=== PATIENT | female | born 1950 | race Caucasian/White ===

== ENCOUNTER 2016-08-15 10:45 | Observation (INO) | payer OTHER, MEDICARE ==
--- NOTE | 2016-08-15 11:47 | RAD ---
INDICATION: Shortness of breath and chest pain COMPARISON: Most recent comparison chest x-ray dated July 09, 2015 TECHNIQUE: PA and lateral views of the chest were obtained. FINDINGS: The heart and mediastinum are normal in size and contour. There are faint and diffuse reticulonodular densities overlying the bilateral lungs which are similar in appearance to the July 09, 2015 chest x-ray. There is no focal suspicious pulmonary nodule or lobar consolidation. Degenerative changes of the thoracic spine include loss of intervertebral disc height and marginal osteophyte formation. There is no radiographic evidence of free air beneath the diaphragm. IMPRESSION: STABLE APPEARANCE OF BILATERAL, CENTRAL GREATER THAN PERIPHERAL RETICULONODULAR DENSITY COMPARED TO THE JULY 09, 2015 CHEST X-RAY. THERE IS A LENGTHY DIFFERENTIAL FOR THIS APPEARANCE WITH A MORE COMMON ETIOLOGY BEING PULMONARY EDEMA DUE TO CONGESTIVE HEART FAILURE. SUCH APPEARANCE CAN ALSO BE SEEN WITH PNEUMONITIS OR DRUG TOXICITY.
[2016-08-15 11:53] LABS: Hematocrit 23 % (35-47); Hemoglobin 7.7 g/dl (12.0-16.0); Mean Corpuscular HGB Conc 33 g/dl (31-36); Mean Corpuscular Hemoglobin 26 pg (27-31); Mean Corpuscular Volume 80 fL (80-97); Mean Platelet Volume 7 um3 (7.4-10.4); Red Blood Count 2.92 10^6/ul (4.0-5.4); Red Cell Distribution Width 16 % (10.5-15); White Blood Count 6.3 10^3/ul (3.5-10.8)
[2016-08-15 12:30] LABS: Albumin 3.6 g/dL (3.2-5.2); BUN/Creatinine Ratio 20.4 (8-20); C Reactive Protein 7.45 mg/L (< 5.00); Calcium 9.1 mg/dL (8.6-10.3); EGFR African American 17.5 (>60); EGFR Non-African American 13.6 (>60); Globulin 2.8 g/dL (2-4); Potassium 4.5 mmol/L (3.5-5.0); Total Bilirubin 0.6 mg/dL (0.2-1.0); Total Protein 6.4 g/dL (6.4-8.9)
[2016-08-15 12:34] LABS: Troponin I 0.18 ng/mL (<0.04)
[2016-08-15] MEDS ORDERED: Furosemide IV* 10 MG/ML 2 ML VIAL (20 MG) IV ONE (12:55)
[2016-08-15] MEDS ORDERED: Aspirin Low Dose CHEW TAB* 81 MG PO ONE (13:17)
--- NOTE | 2016-08-15 13:28 | ADMNOTE ---
Subjective Date of Service: 08/15/16 Interval History: ADMISSION HISTORY AND PHYSICAL EXAM: Allergies Allergy/AdvReac Type Severity Reaction Status Date / Time Penicillin V [From Pen-Vee-K] Allergy Severe Rash Verified 07/09/15 08:08 Sulfa Antibiotics Allergy Unknown Verified 07/09/15 08:08 Reaction Details Home Medications Medication Instructions Recorded Confirmed Type Atorvastatin* [Lipitor 20 MG*] 20 mg PO BEDTIME 09/14/12 07/09/15 History Levothyroxine TAB* [Synthroid 100 100 mcg PO QAM 09/14/12 07/09/15 History MCG TAB*] PARoxetine HCL TAB* [Paxil TAB*] 30 mg PO BEDTIME 09/14/12 07/09/15 History glipiZIDE TAB* [Glucotrol TAB*] 10 mg PO BID 09/14/12 07/09/15 History zzInsulin GLARGINE(*) [zzLantus(*)] 15 units SUBCUT BEDTIME 11/01/13 07/09/15 History Aspirin Low Dose CHEW TAB* 81 mg PO DAILY 12/26/13 07/09/15 History [Aspirin Low Dose TAB*] Carvedilol TAB* [Coreg TAB*] 12.5 mg PO BID 04/12/14 07/09/15 History Nitroglycerin [Nitrostat] 0.4 mg SL SEE INSTRUCTIONS PRN 04/12/14 07/09/15 History Pantoprazole TAB (NF) [Protonix 40 mg PO DAILY 04/28/14 07/09/15 History TAB (NF)] Cilostazol TAB* [Pletal TAB*] 100 mg PO BID 03/14/15 07/09/15 History Sitagliptin Phosphate [Januvia] 50 mg PO DAILY 03/14/15 07/09/15 History Furosemide TAB* [Lasix TAB*] 20 mg PO DAILY #30 tab 03/15/15 07/09/15 Rx Isosorbide Mononitrate ER TAB* 30 mg PO DAILY #30 tab.er 03/15/15 07/09/15 Rx [Imdur ER TAB*] hydrALAZINE TAB* [Apresoline TAB*] 25 mg PO TID #90 tab 03/15/15 07/09/15 Rx HPI: Patient has had increased SOB for 2-3 days, orthopnea. No chest pain or cough. She has gained 14 lbs in past month but has no pedal edema. She does not take iron. She took her meds this AM. She took only 15 U Lantus last night. She could not sleep last night due to SOB/orthopnea. Family History: Findings - Mother had CAD. Social History: Findings - Former smoker. Lives with Jerome Hill who is her SDM. No alcohol abuse. Past Medical History: Findings - Treated at [facility] 12/2013 for ACS/ triple vessel CAD. 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 Review of Systems - Measurements Intake and Output: Intake and Output Last 24 Hours 08/13/16 08/14/16 08/15/16 08/16/16 06:59 06:59 06:59 06:59 Weight 172 lb - Review of Systems Constitutional Symptoms: Positive: Weight Gain - 14 lbs in 1 month Dermatology: Positive: Normal HEENT: Positive: Normal Eyes: Positive: Normal Thyroid: Positive: Primary Hypothyroidism Pulmonary: Positive: Shortness of Breath Cardiology: Positive: Orthopnoea Gastroenterology: Positive: Normal Genital - Urinary: Positive: Normal Musculoskeletal: Negative: Joint Pain, Joint Stiffness, Arthritis, Osteoporosis, Low Back Pain , Sciatica, Joint Deformities, Kyphoscoliosis, Other Endocrinology: Positive: Obesity, Diabetes Mellitus Hematologic/Lymphatic: Positive: Anemia, Hx Lymphoma Neurology: Positive: Normal Psychiatry: Positive: Normal Allergic/Immunologic: Negative: Hx Anaphylaxis, Hx Angioedema, Hx Environmental, Hx Seasonal, Athsma, Hx HIV, Immunocompromise, Swollen Glands LymphNodes, Other Objective Vital Signs 08/15/16 08/15/16 08/15/16 10:52 11:05 11:52 Temperature 97.7 F Pulse Rate 79 87 Respiratory 20 16 Rate Blood Pressure 143/52 (mmHg) O2 Sat by Pulse 97 96 Oximetry 08/15/16 08/15/16 12:00 13:00 Temperature Pulse Rate 74 76 Respiratory 16 16 Rate Blood Pressure 126/49 (mmHg) O2 Sat by Pulse 96 97 Oximetry Oxygen Devices in Use Now: None Appearance: Alert, partly up on ED stretcher. In good spirits. Looks comfortable. Ears/Nose/Mouth/Throat: Clear Oropharnyx, Mucous Membranes Moist Neck: No Thyroid Enlargement, Masses, - - JVD at 45 degrees. Respiratory: Symmetrical Chest Expansion and Respiratory Effort, Clear to Percussion, - - bibasilar rales Cardiovascular: NL Sounds; No Murmurs; No JVD, RRR, No Edema, - Abdominal: NL Sounds; No Tenderness; No Distention, No Hepatosplenomegaly, - Extremities: No Edema, No Clubbing, Cyanosis, - Skin: No Rash or Ulcers, No Nodules or Sclerosis, - Neurological: Alert and Oriented x 3, NL Sensation Result Diagrams: 08/15/16 11:44 08/15/16 11:44 Assess/Plan/Problems-Billing Assessment: - Patient Problems (1) Cardiomyopathy Current Visit: Yes Status: Acute Code(s): I42.9 - CARDIOMYOPATHY, UNSPECIFIED SNOMED Code(s): 82949460 Comment: Acute on chronic sytolic CHF. Total 60 mg IV furosemide given in ED. Increase daily furosemide to 40 mg. BMP 08/16. Echo requested. (2) Diabetes Current Visit: No Status: Chronic Priority: Medium Onset Date: 11/17/13 Code(s): E11.9 - TYPE 2 DIABETES MELLITUS WITHOUT COMPLICATIONS SNOMED Code(s) : 60014301 Comment: Lantus 15 U q PM and her usual oral meds. Lispro SS. (3) Chronic kidney disease Current Visit: No Status: Chronic Priority: Medium Onset Date: 11/17/13 Code(s): N18.9 - CHRONIC KIDNEY DISEASE, UNSPECIFIED SNOMED Code(s): 129763720 Comment: Consult for Dr. Beasley; discussed with him. (4) Lymphoma of gastrointestinal tract Current Visit: Yes Status: Acute Code(s): C85.93 - NON-HODGKIN LYMPHOMA, UNSP, INTRA-ABDOMINAL LYMPH NODES SNOMED Code(s): 385509907 Comment: Duodenal lymphoma dx 2011. Dr. Hart to consult and evaulate for timing of fup EGD. (5) Anemia Current Visit: No Status: Acute Priority: High Onset Date: 01/16/14 Code (s): D64.9 - ANEMIA, UNSPECIFIED SNOMED Code(s): 324439515 Comment: IV iron sucrose one dose, check ferritin in AM.
[2016-08-15] MEDS ORDERED: Furosemide IV* 10 MG/ML VIAL (40 MG) IV ONE (13:40)
[2016-08-15] MEDS ORDERED: Nitroglycerin TAB 0.4 MG* 0.4 MG TAB SL PRN (14:07)
[2016-08-15] MEDS ORDERED: Iron Sucrose* 200 MG in NS 0.9% 250 ML* 250 ML IVPB ONE (15:00)
[2016-08-15] MEDS ORDERED: Atorvastatin* 40 MG TAB PO SCH (17:00)
[2016-08-15] MEDS ORDERED: Insulin GLARGINE(*) 1 UNITS UNIT SUBCUT SCH (21:00)
[2016-08-15] MEDS ORDERED: PARoxetine HCL TAB* 10 MG PO SCH (21:00)
[2016-08-15] MEDS: glipiZIDE TAB* 5 MG PO SCH (21:43)
[2016-08-15] MEDS: hydrALAZINE TAB* 25 MG PO SCH (21:44)
[2016-08-15] MEDS: Cilostazol TAB* 100 MG PO SCH (21:44)
[2016-08-15] MEDS: Carvedilol TAB* 25 MG PO SCH (21:44)
[2016-08-15] MEDS: Heparin VIAL(*) 5000 UNITS/ML VIAL (FIVE THOUSAND) SUBCUT SCH (21:45)
--- NOTE | 2016-08-15 22:57 | CONS ---
CC: Dr. Logan Valdez; Dr. Alberto To * CONSULTATION REPORT: DATE OF CONSULT: 08/15/16 REASON FOR CONSULT: Anemia, blood in the stool, history of duodenal lymphoma. NARRATIVE: This is a 66-year-old woman with a complex medical history including coronary artery disease, congestive heart failure, diabetes. She is admitted with worsening shortness of breath and weight gain attributed to congestive heart failure, but upon admission was noted to have anemia. She does have an extensive GI history. She was evaluated in 2012 for GI bleeding with a normal colonoscopy but had an upper endoscopy which showed a duodenal mass with biopsies demonstrating lymphoma. She was treated with Rituxan from 2011 to 2012 and did generally well, but does have residual local disease. She has had persistent anemia that in the past has required iron supplementation, as well as transfusions. This is attributed to bleeding from the residual duodenal lymphoma. Her last upper endoscopy was in 2014, which demonstrated friable mass-like changes in the duodenum, which required electrocautery for coagulation. She was maintained on iron, but discontinued the iron about a year ago. She has been followed closely for anemia and has maintained hemoglobins in the last year which ranged from a low of 8.1 to a high of 10.4. However, on admission today, her hemoglobin is 7.7, which is down from 9.3 in June of 2016. She has not noticed any black stools or rectal bleeding. She denies any abdominal pain, nausea, or vomiting. PAST MEDICAL HISTORY: Again, includes coronary artery disease, status post stent placement in the past complicated by cardiomyopathy and congestive heart failure; insulin-requiring diabetes; chronic renal insufficiency; duodenal lymphoma. MEDICATIONS: Her medicines on admission were: 1. Baby aspirin. 2. Lipitor. 3. Carvedilol. 4. Pletal. 5. Lasix. 6. Isordil. 7. Synthroid. 8. Paxil. 9. Protonix. 10. Januvia. 11. Glucotrol. 12. Hydralazine. 13. Insulin. PHYSICAL EXAM: She is a very pleasant, comfortable-appearing woman in no acute distress. She is mildly pale with temperature of 97.6, blood pressure is 119/49 , heart rate is 78. Skin exam is unremarkable. Lungs reveal some crackles at the bases. Cardiac exam reveals a regular rhythm without murmur. Abdomen is soft without any significant tenderness, distention, and bowel sounds are normoactive. There was no organomegaly. On rectal exam, there is no palpable lesion and has brown trace guaiac-positive stool. LABORATORY DATA: Additional data include an MCV of 80, a BUN of 69, creatinine of 3.39. Troponin of 0.18. BNP of 1322. Normal liver panel. IMPRESSION: A 66-year-old woman presenting with congestive heart failure with a history of duodenal lymphoma and chronic gastrointestinal bleeding. She has last required an upper endoscopy about 2 years ago with cauterization of tissue that was friable. She has maintained a relatively stable hemoglobin, although on admission today, her hemoglobin is less than 8 which is off her baseline. She is trace guaiac positive, but is not having any evidence of high volume gastrointestinal bleeding. It is likely that friable tissue from the residual lymphoma is leading to her anemia. This may even be provoking cardiac dysfunction. She is getting IV iron which certainly makes sense. I discussed with her pursuing an upper endoscopy during this admission to recheck the lymphoma and see if it is still friable, whether cauterization may help with improving her anemia as it seems to have helped in the past. She is agreeable and we will make arrangements for that to take place tomorrow. [id number]/[facility] #: [id number] MTDD
[2016-08-16] MEDS: Heparin VIAL(*) 5000 UNITS/ML VIAL (FIVE THOUSAND) SUBCUT SCH ×2 (05:19→13:41)
[2016-08-16 05:26] LABS: Calcium 9.2 mg/dL (8.6-10.3); EGFR African American 18.4 (>60); EGFR Non-African American 14.3 (>60); Potassium 3.9 mmol/L (3.5-5.0)
[2016-08-16 05:45] LABS: Ferritin 40.4 ng/mL (11-307)
[2016-08-16] MEDS ORDERED: Levothyroxine TAB* 100 MCG TAB PO SCH (06:00)
[2016-08-16] MEDS ORDERED: Dextrose 50% Syringe 50 ML* 25 GM/50 ML SYRINGE IV PUSH PRN (07:40)
--- NOTE | 2016-08-16 07:59 | PN ---
Subjective Date of Service: 08/16/16 Interval History: Patient reports significant diuresis. Slept better, flat in bed. Less SOB. No new c/o. Requests discharge today if possible. Family History: Findings - Mother had CAD. Social History: Findings - Former smoker. Lives with Jerome Hill who is her SDM. No alcohol abuse. Past Medical History: Findings - Treated at [facility] 12/2013 for ACS/ triple vessel CAD. 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 Objective Active Medications: Aspirin (Aspirin Low Dose Tab*) 81 mg PO DAILY [facility] Atorvastatin Calcium (Lipitor*) 40 mg PO 1700 [facility] Last Admin: 08/15/16 16:23 Dose: 40 mg Carvedilol (Coreg Tab*) 12.5 mg PO BID [facility] Last Admin: 08/15/16 21:44 Dose: 12.5 mg Cilostazol (Pletal Tab*) 100 mg PO BID [facility] Last Admin: 08/15/16 21:44 Dose: 100 mg Dextrose (D50w Syringe 50 Ml*) 12.5 gm IV PUSH .FOR FS < 60 - SS PRN PRN Reason: FS < 60 Furosemide (Lasix Tab*) 40 mg PO DAILY [facility] Glipizide (Glucotrol Tab*) 10 mg PO BID [facility] Last Admin: 08/15/16 21:43 Dose: 10 mg Heparin Sodium (Porcine) (Heparin Vial(*)) 5,000 units SUBCUT Q8HR [facility] Last Admin: 08/16/16 05:19 Dose: 5,000 units Hydralazine HCl (Apresoline Tab*) 25 mg PO TID [facility] Last Admin: 08/15/16 21:44 Dose: 25 mg Insulin Glargine (Lantus(*)) 15 units SUBCUT BEDTIME [facility] Last Admin: 08/15/16 21:53 Dose: 15 unit Insulin Human Lispro (Humalog*) 0 units SUBCUT ACHS [facility] PRN Reason: Protocol Isosorbide Mononitrate (Imdur Er Tab*) 30 mg PO DAILY [facility] Levothyroxine Sodium (Synthroid Tab*) 100 mcg PO 0600 [facility] Last Admin: 08/16/16 05:18 Dose: 100 mcg Metolazone (Zaroxolyn Tab*) 5 mg PO DAILY@0830 [facility] Nitroglycerin (Nitroglycerin Tab 0.4 Mg*) 0.4 mg SL Q5M PRN PRN Reason: CHEST PAIN; MDD= 3 TABS Omeprazole (Prilosec Cap*) 20 mg PO DAILY [facility] Paroxetine HCl (Paxil Tab*) 30 mg PO BEDTIME [facility] Last Admin: 08/15/16 21:43 Dose: 30 mg Sitagliptin Phosphate (Januvia (Nf)) 50 mg PO DAILY [facility] PRN Reason: Protocol Vital Signs 08/15/16 08/15/16 08/15/16 13:31 16:02 19:35 Temperature 97.8 F 97.6 F 97.9 F Pulse Rate 79 78 73 Respiratory 20 20 18 Rate Blood Pressure 112/46 119/49 114/47 (mmHg) O2 Sat by Pulse 94 94 93 Oximetry 08/15/16 08/15/16 08/15/16 20:00 21:45 23:48 Temperature 97.4 F Pulse Rate 70 75 Respiratory 18 18 20 Rate Blood Pressure 118/48 105/45 (mmHg) O2 Sat by Pulse 97 95 Oximetry 08/16/16 04:33 Temperature 97.9 F Pulse Rate 79 Respiratory 20 Rate Blood Pressure 114/44 (mmHg) O2 Sat by Pulse 96 Oximetry Oxygen Devices in Use Now: None Appearance: Alert, standing in her room. In good spirits. Looks comfortable. Eyes: No Scleral Icterus Ears/Nose/Mouth/Throat: Clear Oropharnyx, Mucous Membranes Moist Neck: NL Appearance and Movements; NL JVP, No Thyroid Enlargement, Masses Respiratory: Symmetrical Chest Expansion and Respiratory Effort, Clear to Auscultation, Clear to Percussion Cardiovascular: NL Sounds; No Murmurs; No JVD, RRR, No Edema, - Extremities: No Edema, No Clubbing, Cyanosis, - Skin: No Rash or Ulcers, No Nodules or Sclerosis, - Neurological: Alert and Oriented x 3, NL Sensation Result Diagrams: 08/16/16 12:15 08/16/16 04:35 Assess/Plan/Problems-Billing Assessment: - Patient Problems (1) Cardiomyopathy Current Visit: Yes Status: Acute Code(s): I42.9 - CARDIOMYOPATHY, UNSPECIFIED SNOMED Code(s): 43786085 Comment: Acute on chronic sytolic CHF. Add metolazone. As pt reported large diuresis, will rx MoWeFr. BMP 08/21 as outpt. Echo showed LV 25-30%, sl worse MR also c/w prior study. I discussed daily weights and managing her diuretic dose, especially metolazone. (2) Diabetes Current Visit: No Status: Chronic Priority: Medium Onset Date: 11/17/13 Code(s): E11.9 - TYPE 2 DIABETES MELLITUS WITHOUT COMPLICATIONS SNOMED Code(s) : 71018783 Comment: Lantus 15 U q PM and her usual oral meds at home. (3) Chronic kidney disease Current Visit: No Status: Chronic Priority: Medium Onset Date: 11/17/13 Code(s): N18.9 - CHRONIC KIDNEY DISEASE, UNSPECIFIED SNOMED Code(s): 847342013 Comment: Consult for Dr. Beasley; discussed with him. She will call for outpt appt. (4) Lymphoma of gastrointestinal tract Current Visit: Yes Status: Acute Code(s): C85.93 - NON-HODGKIN LYMPHOMA, UNSP, INTRA-ABDOMINAL LYMPH NODES SNOMED Code(s): 636758229 Comment: Duodenal lymphoma dx 2011. Dr. Young verbal report EGD showed duodenal ulcer. 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 She recalls having bleeding on clopidogrel in the past. (5) Anemia Current Visit: No Status: Acute Priority: High Onset Date: 01/16/14 Code (s): D64.9 - ANEMIA, UNSPECIFIED SNOMED Code(s): 874190378 Comment: IV iron sucrose one dose given. Ferritin 40, goal is 100. Recommended FeSO4 325 mg daily. CBC as outpt 08/21. Status and Disposition: Discharge now. Fup Ramos Palafox, Hector, her store director, her PCP.
[2016-08-16 08:04] LABS: Troponin I 0.28 ng/mL (<0.04)
[2016-08-16] MEDS ORDERED: Metolazone TAB* 5 MG PO SCH (08:30)
[2016-08-16] MEDS: hydrALAZINE TAB* 25 MG PO SCH ×2 (08:45→13:41)
[2016-08-16] MEDS: Cilostazol TAB* 100 MG PO SCH (08:45)
[2016-08-16] MEDS: glipiZIDE TAB* 5 MG PO SCH (08:46)
[2016-08-16] MEDS: Carvedilol TAB* 25 MG PO SCH (08:46)
[2016-08-16] MEDS ORDERED: Perflutren Lipid Microsphere* 3 ML VIAL ONE (08:49)
[2016-08-16] MEDS ORDERED: glipiZIDE TAB* 5 MG ONE (08:51)
[2016-08-16] MEDS ORDERED: Isosorbide Mononitrate ER TAB* 30 MG PO SCH (09:00)
[2016-08-16] MEDS ORDERED: Aspirin Low Dose CHEW TAB* 81 MG PO SCH (09:00)
[2016-08-16] MEDS ORDERED: CMC:SitaGLIPtin (NF) 25 MG TAB PO SCH (09:00)
[2016-08-16] MEDS ORDERED: Omeprazole CAP* 20 MG PO SCH ×2 (09:00→21:00)
[2016-08-16] MEDS ORDERED: Furosemide TAB* 40 MG PO SCH (09:00)
--- NOTE | 2016-08-16 11:21 | ECHO ---
Patient: DEVORA RIVERS [facility] Rec#: [id number] : 1950 Date: 08/16/2016 Age: 66y Height: 162.56 cm / 64.0 in Weight: 79.38 kg / 175.0 lbs Sex: F BSA: 1.85 Room#: 446 Admit Date#: 08/15/2016 Type: Inpatient Referring: Jhoan Boyd MD Reading: Abimael Rebolledo MD Correspondent: Devora Sheth RD,RDMS CC: Logan Valdez MD Transthoracic Echocardiogram Indication: CHF BP: 114/44 HR: 76 Rhythm: NSR Findings History: CAD, PCI, HTN, HLD, DM, CKD Technical Comments: The study quality is fair. Completed 1020 Left Ventricle: The left ventricular chamber size is mildly dilated. Mild concentric left ventricular hypertrophy is observed. There are multiple regional wall motion abnormalities. The estimated ejection fraction is 25-30%. The left ventricular diastolic filling pattern is consistent with pseudonormalization. Left Atrium: The left atrium is moderately dilated. Right Ventricle: The right ventricular chamber size and systolic function are within normal limits. Right Atrium: The right atrial cavity size is normal. Aortic Valve: The aortic valve is trileaflet. Systolic excursion of the aortic valve is normal. There is no evidence of aortic regurgitation. There is no evidence of aortic stenosis. Mitral Valve: There is mitral annular calcification. The mitral valve leaflets are mildly thickened. There is moderate mitral regurgitation. There is borderline mitral stenosis. Tricuspid Valve: The tricuspid valve leaflets are normal. There is trace tricuspid regurgitation. Unable to estimate the right ventricular systolic pressure. Pulmonic Valve: The pulmonic valve structure is not well visualized. Pericardium: There is no significant pericardial effusion. Aorta: The aortic root appears normal. There is no dilatation of the aortic arch. Pulmonary Artery: The main pulmonary artery is not well visualized. Venous: The inferior vena cava is dilated. There is a greater than 50% respiratory change in the inferior vena cava dimension. Contrast: Definity was used to optimize study. A total of 4 ml was used Conclusions There are multiple regional wall motion abnormalities. The estimated ejection fraction is 25-30%. The left ventricular diastolic filling pattern is consistent with pseudonormalization. The right ventricular chamber size and systolic function are within normal limits. There is no evidence of aortic stenosis. There is moderate mitral regurgitation. There is trace tricuspid regurgitation. Unable to estimate the right ventricular systolic pressure. There is no significant pericardial effusion. Compared to study of 03/14/15, the LV function is slightly lower, The degree of MR is slightly worse Measurements Name Value Normal Range RVIDd (AP) 2D 1.9 cm (0.9 - 2.6) RVDdMajor (2D) 2.6 cm (2.2 - 4.4) RAd ISD 4CH 4.2 cm (3.4 - 4.9) RA (A4C)W 4.1 cm (2.9 - 4.6) IVSd (2D) 1.1 cm (0.6 - 1) LVPWd (2D) 1.2 cm (0.6 - 1) LVIDd (2D) 5.9 cm (3.6 - 5.4) LVIDs (2D) 4.7 cm - LV FS (2D) 20 % (25 - 45) Aortic Annulus 2 cm (1.4 - 2.6) Ao root diameter (2D) 2.9 cm (2.1 - 3.5) Ascending Ao 2.6 cm (2.1 - 3.4) Aortic arch 2.7 cm (1.8 - 3.4) LA dimension (AP) 2D 4.8 cm (2.3 - 3.8) LAd ISD 4CH 6.1 cm (2.9 - 5.3) LA ISD 4CH W 4.3 cm (2.5 - 4.5) Name Value Normal Range LA ESV SP 4CH (A/L) 73.81 ml - LA ESV SP 2CH (A/L) 86.33 ml - LA ESV BP (A/L) 85.88 ml - LA ESV BP (A/L) index 46.4 ml/m2 - LA ESV SP 4CH (MOD) 70.68 ml - LA ESV SP 2CH (MOD) 83.61 ml - Name Value Normal Range MV E-wave Vmax 1.3 m/sec - MV deceleration time 176 msec - MV A-wave Vmax 1 m/sec - MV E:A ratio 1.3 ratio - P. vein S-wave Vmax 0.5 m/sec - P. vein D-wave Vmax 0.5 m/sec - P. vein S:D Vmax ratio 1.1 ratio - P. vein A-wave duration 133.1 msec - LV lateral e' Vmax 0.05 m/sec - LV E:e' lateral ratio 26 ratio - Name Value Normal Range AV Vmax 1.5 m/sec - AV VTI 36.7 cm - AV peak gradient 9 mmHg - AV mean gradient 5 mmHg - LVOT Vmax 0.9 m/sec - LVOT VTI 21.7 cm - LVOT peak gradient 3.2 mmHg - LVOT mean gradient 2 mmHg - HOANG Vmax 0.8 m/sec - Name Value Normal Range MV Vmax 1.5 m/sec - MV VTI 37.3 cm - MV peak gradient 9 mmHg - MV mean gradient 3.1 mmHg - MV PHT 65 msec - MR Vmax 4.5 m/sec - MR VTI 157.3 cm - MR flow (PISA) 51.3 ml/sec - MR ERO 1.3 cm2 - MVA (PHT) 3.4 cm2 - Name Value Normal Range RAP 8 mmHg - IVC diameter 2.5 cm -
[2016-08-16] MEDS: Insulin LISPRO* 1 UNITS UNIT SUBCUT SCH ×2 (11:31→16:20)
[2016-08-16 12:23] LABS: Hematocrit 23 % (35-47); Hemoglobin 7.5 g/dl (12.0-16.0); Mean Corpuscular HGB Conc 33 g/dl (31-36); Mean Corpuscular Hemoglobin 26 pg (27-31); Mean Corpuscular Volume 80 fL (80-97); Mean Platelet Volume 7 um3 (7.4-10.4); Red Blood Count 2.83 10^6/ul (4.0-5.4); Red Cell Distribution Width 16 % (10.5-15); White Blood Count 4.3 10^3/ul (3.5-10.8)
[2016-08-16] MEDS ORDERED: fentaNYL* 50 MCG/ML 2 ML VIAL (100 MCG VIAL) ONE (13:48)
[2016-08-16] MEDS ORDERED: Midazolam* 1 MG/ML 10 ML VIAL (10 MG) ONE ×2 (13:48→13:57)
[2016-08-16 15:50] VITALS: BP 108/44
--- NOTE | 2016-08-16 16:54 | PN ---
Progress Note - Progress Note Note: Time spent on discharge 50 minutes.
--- NOTE | 2016-08-17 06:41 | PRO ---
CC: Dr. Valdez * DATE OF PROCEDURE: 08/16/16 - ROOM #446 DATE OF : 52 PROCEDURE: EGD. INDICATION: Anemia. REFERRING PHYSICIAN: Dr. Valdez. MEDICATIONS GIVEN: 25 mcg IV fentanyl and 4 mg IV Versed. DESCRIPTION OF PROCEDURE: After the EGD procedure including the risks, benefits , and alternatives not limited to perforation, surgery, and/or were explained to Mrs. Santana; written consent was then obtained; IV medication was given; and a biteblock was placed between the teeth. Olympus gastroscope was then inserted into the patient's mouth, advanced down the esophagus, into the stomach, into the distal duodenum. In the esophagus at the GE junction, the Z- line was intact. No erosive esophagitis, stricture, or ring was seen. Scope was advanced through a widely patent GE junction into the body of the stomach. Retroflexed view was unremarkable. Forward also was unremarkable except for a small ulcer in the prepyloric region, it was nonbleeding. Biopsy was obtained. The scope was advanced through a widely patent pylorus into the duodenal bulb , into the distal duodenum. No nodularity was seen, but there was what appeared to be scarring in the duodenum. Biopsies were obtained. The scope was then withdrawn from the patient. She tolerated the procedure well and was returned to the recovery room in stable condition. IMPRESSION: 1. Complete upper endoscopy into the distal duodenum with biopsies. 2. Duodenal biopsies. 3. Gastric ulcer, status post biopsy. 4. I will follow up on all the biopsies and report back to the patient at that time. She should be started on a PPI. The ulcers are likely secondary to her ASPIRIN use. [id number]/[facility] #: [id number] [facility]
--- NOTE | 2016-08-18 13:50 | ED ---
I, Rigo,Jesu, scribed for Roddy Ayala MD on 08/15/16 at 1157 . Shortness of Breath - HPI Summary HPI Summary: This 66 y/o female presents to ED for acute on chronic SOB since 2 days ago. Positive mild CP. SOB is worse with lying down and exertion. PMHx is significant for DM, HTN, CHF, PE, and duodenal CA. She does report recent weight gain of 13-14 pound since 2 weeks ago, even though pt is currently on unspecified "water pills". - History of Current Complaint Chief Complaint: EDShortnessOfBreath Time Seen by Provider: 08/15/16 11:04 Hx Obtained From: Patient, Medical Records Onset/Duration: Gradual Onset Timing: Constant Dyspnea At: Rest Aggrevating Factors: Recumbent Position Alleviating Factors: Upright Position Associated Signs & Symptoms: Chest Pain Unrelated to Cough - Allergy/Home Medications Allergies/Adverse Reactions: Allergies Allergy/AdvReac Type Severity Reaction Status Date / Time Penicillin V [From Pen-Vee-K] Allergy Severe Rash Verified 07/09/15 08:08 Sulfa Antibiotics Allergy Unknown Verified 07/09/15 08:08 Reaction Details PMH/Surg Hx/FS Hx/Imm Hx Endocrine/Hematology History: Reports: Hx Diabetes, Hx Thyroid Disease Cardiovascular History: Reports: Hx Angina, Hx Congestive Heart Failure, Hx Coronary Artery Disease, Hx Hypertension, Other Cardiovascular Problems/ Disorders - Cardiac cath 2011 with 2 stents Denies: Hx Peripheral Vascular Disease Respiratory History: Reports: Hx Pleural Effusion Denies: Other Respiratory Problems/Disorders Comment Only: Hx Asthma - ALSO HX OF STOMACH CANCER 2011 GI History: Denies: Other GI Disorders - CA, meghann, "oozing bleed" History: Reports: Hx Renal Disease - 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 melanoma- 2000 lymph nodes removed from right groin. -2003 spot removed from top of right foot. - Surgical History Surgery Procedure, Year, and Place: ,cholecystectomy, hysterectomy, melanoma- 2000 lymph nodes reoved right groin, 2004 spot removed from top of right foot. - Immunization History Date of Tetanus Vaccine: Unk Date of Influenza Vaccine: Fall 2013 Infectious Disease History: Denies: Traveled Outside the [place] in Last 30 Days - Family History Known Family History: Positive: Cardiac Disease - Positive to mother - Social History Alcohol Use: None Substance Use Type: Reports: None Hx Tobacco Use: Yes Smoking Status (MU): Heavy Every Day Tobacco Smoker Length of Time of Smoking/Using Tobacco: About 40yrs Have You Smoked in the Last Year: Yes Review of Systems Positive: Other - Recent weight gain. Negative: Fever Positive: Chest Pain - mild Positive: Shortness Of Breath All Other Systems Reviewed And Are Negative: Yes Physical Exam - Summary Physical Exam Summary: VITAL SIGNS: Reviewed. GENERAL: Patient is a well-developed and nourished FEMALE who is lying comfortable in the stretcher. Patient is not in any acute respiratory distress. HEAD AND FACE: No signs of trauma. No ecchymosis, hematomas or skull depressions. No sinus tenderness. EYES: PERRLA, EOMI x 2, No injected conjunctiva, no nystagmus. EARS: Hearing grossly intact. Ear canals and tympanic membranes are within normal limits. MOUTH: Oropharynx within normal limits. NECK: Supple, trachea is midline, no adenopathy, no JVD, no carotid bruit, no c- spine tenderness, neck with full ROM. CHEST: Symmetric, no tenderness at palpation LUNGS: Rancorous breath sound, otherwise clear to auscultation bilaterally. No wheezing or crackles. CVS: Regular rate and rhythm, S1 and S2 present, no murmurs or gallops appreciated. ABDOMEN: Soft, non-tender. No signs of distention. No rebound no guarding, and no masses palpated. Bowel sounds are normal. EXTREMITIES: FROM in all major joints, no edema, no cyanosis or clubbing. NEURO: Alert and oriented x 3. No acute neurological deficits. Speech is normal and follows commands. SKIN: Dry and warm Triage Information Reviewed: Yes Vital Signs On Initial Exam: Initial Vitals Temp Pulse Resp BP Pulse Ox 97.7 F 79 20 143/52 97 08/15/16 10:52 08/15/16 10:52 08/15/16 10:52 08/15/16 10:52 08/15/16 10:52 Vital Signs Reviewed: Yes Diagnostics - Vital Signs Vital Signs Temp Pulse Resp BP Pulse Ox 08/15/16 10:52 97.7 F 79 20 143/52 97 - Laboratory Lab Results: Lab Results 08/15/16 08/15/16 08/15/16 Range/Units 11:44 11:44 11:44 WBC 6.3 (3.5-10.8) 10^3/ul RBC 2.92 L (4.0-5.4) 10^6/ul Hgb 7.7 L (12.0-16.0) g/dl Hct 23 L (35-47) % MCV 80 (80-97) fL MCH 26 L (27-31) pg MCHC 33 (31-36) g/dl RDW 16 H (10.5-15) % Plt Count 288 (150-450) 10^3/ul MPV 7 L (7.4-10.4) um3 Neut % (Auto) 80.5 (38-83) % Lymph % (Auto) 7.8 L (25-47) % Falls % (Auto) 7.4 (1-9) % Eos % (Auto) 3.5 (0-6) % Baso % (Auto) 0.8 (0-2) % Absolute Neuts (auto) 5.0 (1.5-7.7) 10^3/ul Absolute Lymphs (auto) 0.5 L (1.0-4.8) 10^3/ul Absolute Monos (auto) 0.5 (0-0.8) 10^3/ul Absolute Eos (auto) 0.2 (0-0.6) 10^3/ul Absolute Basos (auto) 0 (0-0.2) 10^3/ul Absolute Nucleated RBC 0 10^3/ul Nucleated RBC % 0 Sodium 135 (133-145) mmol/L Potassium 4.5 (3.5-5.0) mmol/L Chloride 101 (101-111) mmol/L Carbon Dioxide 28 (22-32) mmol/L Anion Gap 6 (2-11) mmol/L BUN 69 H (6-24) mg/dL Creatinine 3.39 H (0.51-0.95) mg/dL Est GFR ( Amer) 17.5 (>60) Est GFR (Non-Af Amer) 13.6 (>60) BUN/Creatinine Ratio 20.4 H (8-20) Glucose 176 H (70-100) mg/dL Lactic Acid 0.8 (0.5-2.0) mmol/L Calcium 9.1 (8.6-10.3) mg/dL Total Bilirubin 0.60 (0.2-1.0) mg/dL AST 14 (13-39) U/L ALT 12 (7-52) U/L Alkaline Phosphatase 90 (34-104) U/L Total Creatine Kinase 44 (10-223) U/L CK-MB (CK-2) 1.8 (0.6-6.3) ng/mL Troponin I 0.18 H* (<0.04) ng/mL C-Reactive Protein 7.45 H (< 5.00) mg/L B-Natriuretic Peptide ( - 100) pg/mL Total Protein 6.4 (6.4-8.9) g/dL Albumin 3.6 (3.2-5.2) g/dL Globulin 2.8 (2-4) g/dL Albumin/Globulin Ratio 1.3 (1-3) Hepatitis B Antibody (Nonreactive) Hep Bs Antigen (Nonreactive) Hep Bs Antibody, Quant (<12) mIU/mL Hepatitis C Antibody (Nonreactive) 08/15/16 08/15/16 Range/Units 11:44 11:44 WBC (3.5-10.8) 10^3/ul RBC (4.0-5.4) 10^6/ul Hgb (12.0-16.0) g/dl Hct (35-47) % MCV (80-97) fL MCH (27-31) pg MCHC (31-36) g/dl RDW (10.5-15) % Plt Count (150-450) 10^3/ul MPV (7.4-10.4) um3 Neut % (Auto) (38-83) % Lymph % (Auto) (25-47) % Falls % (Auto) (1-9) % Eos % (Auto) (0-6) % Baso % (Auto) (0-2) % Absolute Neuts (auto) (1.5-7.7) 10^3/ul Absolute Lymphs (auto) (1.0-4.8) 10^3/ul Absolute Monos (auto) (0-0.8) 10^3/ul Absolute Eos (auto) (0-0.6) 10^3/ul Absolute Basos (auto) (0-0.2) 10^3/ul Absolute Nucleated RBC 10^3/ul Nucleated RBC % Sodium (133-145) mmol/L Potassium (3.5-5.0) mmol/L Chloride (101-111) mmol/L Carbon Dioxide (22-32) mmol/L Anion Gap (2-11) mmol/L BUN (6-24) mg/dL Creatinine (0.51-0.95) mg/dL Est GFR ( Amer) (>60) Est GFR (Non-Af Amer) (>60) BUN/Creatinine Ratio (8-20) Glucose (70-100) mg/dL Lactic Acid (0.5-2.0) mmol/L Calcium (8.6-10.3) mg/dL Total Bilirubin (0.2-1.0) mg/dL AST (13-39) U/L ALT (7-52) U/L Alkaline Phosphatase (34-104) U/L Total Creatine Kinase (10-223) U/L CK-MB (CK-2) (0.6-6.3) ng/mL Troponin I (<0.04) ng/mL C-Reactive Protein (< 5.00) mg/L B-Natriuretic Peptide 1322 H ( - 100) pg/mL Total Protein (6.4-8.9) g/dL Albumin (3.2-5.2) g/dL Globulin (2-4) g/dL Albumin/Globulin Ratio (1-3) Hepatitis B Antibody Nonreactive (Nonreactive) Hep Bs Antigen Nonreactive (Nonreactive) Hep Bs Antibody, Quant < 3.10 (<12) mIU/mL Hepatitis C Antibody Nonreactive (Nonreactive) Result Diagrams: 08/16/16 12:15 08/16/16 04:35 Lab Statement: Any lab studies that have been ordered have been reviewed, and results considered in the medical decision making process. - Radiology CXR Xray Interpretation: Positive (See Comments) - STABLE APPEARANCE OF BILATERAL, CENTRAL GREATER THAN PERIPHERAL RETICULONODULAR DENSITY COMPARED TO THE JULY 09, 2015 CHEST X-RAY. THERE IS A LENGTHY DIFFERENTIAL FOR THIS APPEARANCE WITH A MORE COMMON ETIOLOGY BEING PULMONARY EDEMA DUE TO CONGESTIVE HEART FAILURE. SUCH APPEARANCE CAN ALSO BE SEEN WITH PNEUMONITIS OR DRUG TOXICITY. Radiology Interpretation Completed By: Radiologist - EKG 1059 Cardiac Rate: NL - 85 bpm EKG Rhythm: Sinus Rhythm EKG Comparison: No Significant Change - since 07/09/2015 Course/Dx - Course Assessment/Plan: This 66 y/o female presents to ED for acute on chronic SOB since 2 days ago. Positive mild CP. SOB is worse with lying down and exertion. PMHx is significant for DM, HTN, CHF, PE, and duodenal CA. She does report recent weight gain of 13-14 pound since 2 weeks ago, even though pt is currently on unspecified "water pills". Bloodwork indicates chronic anemia, acute on chronic renal failure, trop of 0.18, BNP of 1322. CXR indicates CHF. ED course pt was placed on adult care provider and IV access was obtained. Pt was given Lasix for CHF and ASA for increased trop to r/o ACS. Physical exam and clinical findings were discussed with Dr. Boyd. He accepted for admission. Patient is hemodynamically stable and A+O X 3. - Diagnoses Differential Diagnosis/HQI/PQRI: Positive: CHF, COPD Exacerbation, Pulmonary Edema Provider Diagnoses: CHF (congestive heart failure), Increased troponin r/o ACS - Physician Notifications Discussed Care of Patient With: Jhoan Boyd Time Discussed With Above Provider: 13:03 Discharge - Discharge Plan Condition: Stable Disposition: ADMITTED TO [facility] documentation as recorded by the Rigo friedman Soohyun accurately reflects the service I personally performed and the decisions made by , Roddy Ayala MD.
[2016-08-18 20:04] LABS: M tuberculosis by Quantiferon Negative (Negative); TB Ag minus Nil Result 0 IU/mL
== END 2016-08-16 17:05 | disposition home or self-care (01) ==
LOC: ED 10:45 → MEDTELE 13:08 → INTOOBSV 13:08
PROVIDERS: ADMIT Internal Medicine; ATTEND Internal Medicine
PROC: 0DB98ZX Excision of Duodenum, Via Natural or Artificial Opening Endoscopic, Diagnostic (ICD-10-PCS; principal; 2016-08-15)
PROC: 0DB68ZX Excision of Stomach, Via Natural or Artificial Opening Endoscopic, Diagnostic (ICD-10-PCS; 2016-08-15)
DX: D64.9 Anemia, unspecified (principal); K92.2 Gastrointestinal hemorrhage, unspecified; I42.9 Cardiomyopathy, unspecified; I50.9 Heart failure, unspecified; E11.9 Type 2 diabetes mellitus without complications; N18.9 Chronic kidney disease, unspecified; Z85.72 Personal history of non-Hodgkin lymphomas; R06.02 Shortness of breath; Z88.0 Allergy status to penicillin; Z88.2 Allergy status to sulfonamides; I25.10 Atherosclerotic heart disease of native coronary artery without angina pectoris; Z79.4 Long term (current) use of insulin
CPT/HCPCS: 36415; 71020; 80048; 80053; 82550; 82553; 82728; 83605; 83880; 84484; 85025; 86140; 86480; 86706; 86803; 87340; 88365; 93005; 93306; 96372; 96374; 96375; 99284; A9270-GY; C8929; G0378; J1644; J1756; J1940; J2250; J3010

== ENCOUNTER 2016-09-06 01:46 | Inpatient (IN) | payer MEDICARE, OTHER ==
[2016-09-06] MEDS ORDERED: Furosemide IV* 10 MG/ML VIAL (40 MG) IV ONE ×3 (01:57→09:30)
--- NOTE | 2016-09-06 02:08 | ED ---
Tyson Bernard Thomas, scribed for Bjorn Martinez MD on 09/06/16 at 0200 . Shortness of Breath - HPI Summary HPI Summary: The pt is a 66 y/o F with a Hx of CHF BIBA c/o SOB that began at 00:00 today. When she went to sleep last night, she did not have SOB, but when she woke up in the middle of the night she had severe SOB. She denies fever. She is on 6L of Oxygen at home. She denies any Sx of respiratory complaints yesterday before she fell asleep. She was a pt at [facility] two weeks ago, when she was admitted. PMHx : DM, angina, CHF, PE, CAD, stage 4 kidney disease, and HTN. PSHx: cardiac cath in 2011 with two stents. FHx: tobacco use. - History of Current Complaint Chief Complaint: EDShortnessOfBreath Time Seen by Provider: 09/06/16 01:53 Hx Obtained From: Patient Onset/Duration: Sudden Onset - since she woke up at midnight, Still Present Timing: Constant - Allergy/Home Medications Allergies/Adverse Reactions: Allergies Allergy/AdvReac Type Severity Reaction Status Date / Time Penicillin V [From Pen-Vee-K] Allergy Severe Rash Verified 07/09/15 08:08 Sulfa Antibiotics Allergy Unknown Verified 07/09/15 08:08 Reaction Details PMH/Surg Hx/FS Hx/Imm Hx Previously Healthy: No Endocrine/Hematology History: Reports: Hx Diabetes, Hx Thyroid Disease Cardiovascular History: Reports: Hx Angina, Hx Congestive Heart Failure, Hx Coronary Artery Disease, Hx Hypertension, Other Cardiovascular Problems/ Disorders - Cardiac cath 2011 with 2 stents Denies: Hx Peripheral Vascular Disease Respiratory History: Reports: Hx Pleural Effusion Denies: Other Respiratory Problems/Disorders Comment Only: Hx Asthma - ALSO HX OF STOMACH CANCER 2011 GI History: Reports: Hx Gastrointestinal Bleed Denies: Other GI Disorders - CA, meghann, "oozing bleed" History: Reports: Hx Renal Disease - 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 melanoma- 2000 lymph nodes removed from right groin. -2003 spot removed from top of right foot. - Surgical History Surgery Procedure, Year, and Place: ,cholecystectomy, hysterectomy, melanoma- 2000 lymph nodes reoved right groin, 2003 spot removed from top of right foot. - Immunization History Date of Tetanus Vaccine: Unk Date of Influenza Vaccine: Fall 2013 - Family History Known Family History: Positive: None, Cardiac Disease - Positive to mother - Social History Alcohol Use: None Substance Use Type: Reports: None Hx Tobacco Use: Yes Smoking Status (MU): Heavy Every Day Tobacco Smoker Length of Time of Smoking/Using Tobacco: About 40yrs Have You Smoked in the Last Year: Yes Review of Systems Constitutional: Negative Negative: Fever Eyes: Negative ENT: Negative Cardiovascular: Negative Positive: Shortness Of Breath - onset 00:00 when she woke up Gastrointestinal: Negative Genitourinary: Negative Musculoskeletal: Negative Skin: Negative Neurological: Negative Psychological: Normal All Other Systems Reviewed And Are Negative: Yes Physical Exam Triage Information Reviewed: Yes Vital Signs On Initial Exam: Initial Vitals Temp Pulse Resp BP Pulse Ox 96.4 F 119 22 134/119 95 09/06/16 01:55 09/06/16 01:55 09/06/16 01:55 09/06/16 01:55 09/06/16 01:55 Vital Signs Reviewed: Yes Appearance: Positive: No Pain Distress, Ill-Appearing, Thin Skin: Positive: Warm Head/Face: Positive: Normal Head/Face Inspection Eyes: Positive: CHAMP ENT: Positive: Hearing grossly normal Neck: Positive: Supple Respiratory/Lung Sounds: Positive: Decreased Breath Sounds, Unable to speak in full sentences, Fatigue Cardiovascular: Positive: Tachycardia Abdomen Description: Positive: Nontender, Soft Bowel Sounds: Positive: Present Musculoskeletal: Positive: Strength/ROM Intact Psychiatric: Positive: Anxious Diagnostics - Vital Signs Vital Signs Temp Pulse Resp BP Pulse Ox 09/06/16 01:55 96.4 F 119 22 134/119 95 - Laboratory Result Diagrams: 09/06/16 02:11 09/06/16 02:11 Lab Statement: Any lab studies that have been ordered have been reviewed, and results considered in the medical decision making process. Re-Evaluation - Re-Evaluation Second Eval Re-Evaluation Time: 02:54 Change: Improved - mildly improved, d/w hospitaliust, will admit Course/Dx - Diagnoses Provider Diagnoses: CHF (congestive heart failure) - Physician Notifications Discussed Care of Patient With: Aaliyah Lobato Time Discussed With Above Provider: 02:54 Instructed by Provider To: Other - Discussed patient. - Critical Care Time Critical Care Time: 30-74 min Discharge - Discharge Plan Condition: Fair Disposition: ADMITTED TO [facility] documentation as recorded by the Tyson friedman Thomas accurately reflects the service I personally performed and the decisions made by me, Bjorn Martinez MD.
[2016-09-06 02:26] LABS: Hematocrit 33 % (35-47); Mean Corpuscular HGB Conc 33 g/dl (31-36); Mean Corpuscular Hemoglobin 29 pg (27-31); Mean Corpuscular Volume 88 fL (80-97); Mean Platelet Volume 9 um3 (7.4-10.4); Red Blood Count 3.81 10^6/ul (4.0-5.4); Red Cell Distribution Width 18 % (10.5-15)
[2016-09-06 02:39] LABS: BUN/Creatinine Ratio 25.8 (8-20); Calcium 9.3 mg/dL (8.6-10.3); EGFR African American 21.2 (>60); EGFR Non-African American 16.5 (>60); Globulin 3.2 g/dL (2-4); Potassium 4.1 mmol/L (3.5-5.0); Total Bilirubin 0.6 mg/dL (0.2-1.0); Total Protein 7.2 g/dL (6.4-8.9)
[2016-09-06 02:52] LABS: Troponin I 0.41 ng/mL (<0.04)
[2016-09-06 03:20] LABS: Magnesium 1.9 mg/dL (1.9-2.7)
[2016-09-06] MEDS ORDERED: Ondansetron INJ* 2 MG/ML VIAL IV PRN (03:26)
[2016-09-06] MEDS ORDERED: Acetaminophen TAB* 325 MG PO PRN (03:26)
[2016-09-06] MEDS ORDERED: Al Hydrox/Mg Hydrox/Simet LIQ* 30 ML UDC PO PRN (03:26)
[2016-09-06] MEDS ORDERED: Senna TAB PO PRN (03:26)
[2016-09-06] MEDS ORDERED: Docusate CAP* 100 MG PO PRN (03:26)
[2016-09-06] MEDS ORDERED: Magnesium Hydroxide LIQ* 30 ML UDC PO PRN (03:26)
[2016-09-06] MEDS ORDERED: Albuterol 2.5 MG/3 ML NEB.SOL* (0.083%) INH PRN (03:32)
[2016-09-06] MEDS ORDERED: Aspirin TAB* 325 MG PO ONE (03:33)
[2016-09-06] MEDS ORDERED: Dextrose 50% Syringe 50 ML* 25 GM/50 ML SYRINGE IV PUSH PRN ×2 (03:36→04:37)
[2016-09-06] MEDS ORDERED: Nitroglycerin 2% OINT* 1 GM PAK TOPICAL ONE (03:37)
[2016-09-06] MEDS ORDERED: Mouth Piece, Nicotine* 1 EACH CARTRIDGE INH PRN (03:38)
[2016-09-06] MEDS ORDERED: Nicotine Inhaler* 10 MG AMP INH PRN (03:38)
[2016-09-06] MEDS ORDERED: Insulin GLARGINE(*) 1 UNITS UNIT SUBCUT SCH (04:00)
[2016-09-06] MEDS ORDERED: Insulin LISPRO* 1 UNITS UNIT SUBCUT ONE (04:37)
[2016-09-06] MEDS: Heparin VIAL(*) 5000 UNITS/ML VIAL (FIVE THOUSAND) SUBCUT SCH ×3 (06:45→22:03)
[2016-09-06] MEDS: Levothyroxine TAB* 100 MCG TAB PO SCH (06:45)
[2016-09-06 06:46] LABS: BUN/Creatinine Ratio 25.9 (8-20); Calcium 9.2 mg/dL (8.6-10.3); EGFR African American 20.6 (>60); HDL Cholesterol 26.4 mg/dL; Potassium 4.4 mmol/L (3.5-5.0)
[2016-09-06 06:50] LABS: Troponin I 3.7 ng/mL (<0.04)
[2016-09-06] MEDS ORDERED: Insulin LISPRO* 1 UNITS UNIT SUBCUT SCH (07:30)
--- NOTE | 2016-09-06 07:51 | RAD ---
INDICATION: Short of breath COMPARISON: August 15, 2016 TECHNIQUE: AP seated and lateral dual-energy views were obtained. FINDINGS: Bones/Soft Tissues: There are no acute bony findings. Cardiomediastinal: The heart and central pulmonary vessels are prominent. There is interstitial edema. Lungs: There is no focal consolidation. There is diffuse interstitial infiltrative change, likely edema. There is early alveolar change in the right lung base. Given these diffuse changes, underlying infectious infiltrates are not excluded.. Pleura: There are no significant pleural effusions. Other: None IMPRESSION: VASCULAR CONGESTION. SUGGEST FOLLOW-UP.
--- NOTE | 2016-09-06 07:54 | PN ---
Subjective Date of Service: 09/06/16 Interval History: Pt is feeling much better this AM than when she presented to the ER overnight. She states her breathing is close to baseline. She tells me that she was just d/c'ed from [facility] on 09/03/16. At that time she was given blood transfusion x2, a life vest and her diuretics were stopped. She denies any recent salty foods. She states the only thing that changed were her diuretics being stopped. She denies any chest pain. Family History: Unchanged from Admission Social History: Unchanged from Admission Past Medical History: Unchanged from Admission Objective Active Medications: Acetaminophen (Tylenol Tab*) 650 mg PO Q4H PRN PRN Reason: FEVER/PAIN Al Hydrox/Mg Hydrox/Simethicone (Maalox Plus*) 30 ml PO Q6H PRN PRN Reason: INDIGESTION Albuterol (Ventolin 2.5 Mg/3 Ml Neb.Casandra*) 2.5 mg INH Q2H PRN PRN Reason: SOB/WHEEZING Atorvastatin Calcium (Lipitor*) 40 mg PO 2100 BOY Carvedilol (Coreg Tab*) 12.5 mg PO BID BOY Cilostazol (Pletal Tab*) 100 mg PO BID [facility] Device (Nicotine Mouth Piece*) 1 each INH .USE WITH NICOTROL PRN PRN Reason: CRAVING Dextrose (D50w Syringe 50 Ml*) 12.5 gm IV PUSH .FOR FS < 60 - SS PRN PRN Reason: FS < 60 Docusate Sodium (Colace Cap*) 100 mg PO BID PRN PRN Reason: CONSTIPATION Heparin Sodium (Porcine) (Heparin Vial(*)) 5,000 units SUBCUT Q8HR [facility] Last Admin: 09/06/16 06:45 Dose: 5,000 units Hydralazine HCl (Apresoline Tab*) 25 mg PO TID [facility] Insulin Glargine (Lantus(*)) 15 units SUBCUT Q24H [facility] Last Admin: 09/06/16 04:39 Dose: 15 units Insulin Human Lispro (Humalog*) 0 units SUBCUT AC [facility] PRN Reason: Protocol Isosorbide Mononitrate (Imdur Er Tab*) 30 mg PO DAILY [facility] Levothyroxine Sodium (Synthroid Tab*) 100 mcg PO DAILY@0600 [facility] Last Admin: 07/10/17 06:45 Dose: 100 mcg Magnesium Hydroxide (Milk Of Magnesia Liq*) 30 ml PO Q4H PRN PRN Reason: CONSTIPATION Metolazone (Zaroxolyn Tab*) 5 mg PO MoWeFr@0900 BOY Nicotine (Nicotine Inhaler*) 10 mg INH Q2H PRN PRN Reason: CRAVING Omeprazole (Prilosec Cap*) 20 mg PO BID [facility] Ondansetron HCl (Zofran Inj*) 4 mg IV Q4H PRN PRN Reason: NAUSEA/VOMITING Paroxetine HCl (Paxil Tab*) 30 mg PO DAILY [facility] Senna (Senokot Tab*) 1 tab PO BID PRN PRN Reason: CONSTIPATION Vital Signs 09/06/16 09/06/16 09/06/16 03:40 03:55 04:00 Temperature 96.9 F 96.9 F Pulse Rate 95 87 Respiratory 20 18 18 Rate Blood Pressure 136/69 144/68 (mmHg) O2 Sat by Pulse 97 Oximetry 09/06/16 09/06/16 09/06/16 04:29 04:30 04:45 Temperature Pulse Rate 93 Respiratory 21 18 20 Rate Blood Pressure 144/68 144/70 (mmHg) O2 Sat by Pulse 97 Oximetry 09/06/16 09/06/16 09/06/16 05:00 05:15 05:30 Temperature Pulse Rate 88 86 86 Respiratory 18 19 17 Rate Blood Pressure 132/61 113/49 103/48 (mmHg) O2 Sat by Pulse 98 94 96 Oximetry 09/06/16 09/06/16 09/06/16 05:45 06:00 06:15 Temperature Pulse Rate 85 80 Respiratory 17 16 Rate Blood Pressure 96/44 106/56 100/43 (mmHg) O2 Sat by Pulse 97 97 Oximetry 09/06/16 09/06/16 09/06/16 06:30 06:45 07:00 Temperature Pulse Rate 76 82 79 Respiratory 16 18 17 Rate Blood Pressure 114/47 118/55 123/63 (mmHg) O2 Sat by Pulse 96 96 97 Oximetry 09/06/16 09/06/16 09/06/16 07:26 07:28 07:39 Temperature 97.6 F Pulse Rate 79 Respiratory 18 Rate Blood Pressure (mmHg) O2 Sat by Pulse 97 98 Oximetry Oxygen Devices in Use Now: Nasal Cannula - 3L-97% Appearance: Middle aged female sleeping sitting up in bed, NAD Eyes: No Scleral Icterus Ears/Nose/Mouth/Throat: Mucous Membranes Moist Respiratory: Symmetrical Chest Expansion and Respiratory Effort, - - coarse bibasilar crackles Cardiovascular: RRR, No Edema, - - life vest in place Abdominal: NL Sounds; No Tenderness; No Distention Extremities: No Clubbing, Cyanosis Skin: No Rash or Ulcers, No Nodules or Sclerosis Neurological: Alert and Oriented x 3 Result Diagrams: 09/06/16 02:11 09/06/16 06:25 Microbiology and Other Data: Microbiology 09/06/16 04:47 Nasal Screen MRSA (PCR)(PRIMO) - Final Nasal Mrsa Negative Assess/Plan/Problems-Billing Ms Santana is a 66 yo F who has a h/o severe systolic dysfunction, CAD, duodenal lymphoma and type II DM who presented to the ER with c/o sudden onset of severe SOB and was admitted for acute decompensated CHF. - Patient Problems (1) Acute systolic CHF (congestive heart failure) Current Visit: Yes Status: Acute Code(s): I50.21 - ACUTE SYSTOLIC ( CONGESTIVE) HEART FAILURE SNOMED Code(s): 265068265 Comment: The patient presented in acute decompensated CHF. She is much improved after receiving lasix 80mg IV x1 earlier this AM. I suspect her decompensation was secondary to her diuretics being discontinued during her previous hospitalization. Will resume her metolazone and give another 40mg IV lasix this AM. Will obtain records from [place] to determine what happened during that admission. I do not think there is a need to repeat an echo at this point as it sounds as if she had one just last week-additionally she had any echo here last month. Continue coreg, hydralazine and imdur. (2) CAD (coronary artery disease) Current Visit: Yes Status: Chronic Code(s): I25.10 - ATHSCL HEART DISEASE OF [place] CORONARY ARTERY W/O ANG PCTRS SNOMED Code(s): 30838669 Comment: The patient's troponin is markedly elevated now compared to when she presented to the ER. I suspect this represents demand ischemia related to her acute CHF and respiratory distress she presented with. Will continue to trend the troponin. If it continues to climb will get cardiology evaluation but she is not having any chest pain at this time. She is not on ASA at this time I suspect secondary to a h/o GI bleeds (she just received 2 units PRBC last week at [place]). Continue coreg. (3) Chronic kidney disease, stage IV (severe) Current Visit: Yes Status: Acute Code(s): N18.4 - CHRONIC KIDNEY DISEASE, STAGE 4 (SEVERE) SNOMED Code(s): 495780177 Comment: The patient's creatinine is close to baseline. She has not seen a repairer veneer sheet as an outpatient. She states she saw one as an inpatient last week. Will get records from [place]. She should be following with someone as I do not think she can come off her diuretic therapy. (4) Type II diabetes mellitus Current Visit: Yes Status: Acute Comment: Sugars are currently uncontrolled. Continue to follow her levels. Lantus was given at 0430 this AM. Add lispro sliding scale. A1c is pending. (5) Hypertension Current Visit: Yes Status: Chronic Onset Date: 11/17/13 Code(s): I10 - ESSENTIAL (PRIMARY) HYPERTENSION SNOMED Code(s): 90707250 Comment: BP is under good control. Continue coreg, hydralazine and imdur. (6) Hyperlipidemia Current Visit: Yes Status: Chronic Code(s): E78.5 - HYPERLIPIDEMIA, UNSPECIFIED SNOMED Code(s): 98412948 Comment: Continue lipitor. (7) Hypothyroid Current Visit: Yes Status: Chronic Onset Date: 11/17/13 Code(s): E03.9 - HYPOTHYROIDISM, UNSPECIFIED SNOMED Code(s): 68935999 Comment: Continue current dose of synthroid. Last TSH in 06/2016 was within the normal range. (8) Lymphoma of gastrointestinal tract Current Visit: Yes Status: Acute Code(s): C85.93 - NON-HODGKIN LYMPHOMA, UNSP, INTRA-ABDOMINAL LYMPH NODES SNOMED Code(s): 315121890 Comment: Duodenal lymphoma dx 2011. Will touch base with oncology today to determine where she is in her course of treatment. (9) Depression Current Visit: Yes Status: Chronic Code(s): F32.9 - MAJOR DEPRESSIVE DISORDER, SINGLE EPISODE, UNSPECIFIED SNOMED Code(s): 00587813 Comment: Continue paxil. (10) DVT prophylaxis Current Visit: Yes Status: Acute Code(s): RSK9347 - SNOMED Code(s): 505716652 Comment: SQ heparin (11) Full code status Current Visit: Yes Status: Acute Code(s): Z78.9 - OTHER SPECIFIED HEALTH STATUS SNOMED Code(s): 991061310
--- NOTE | 2016-09-06 08:37 | HP ---
CC: Logan Valdez MD. * HISTORY AND PHYSICAL: DATE OF ADMISSION: 09/06/16 TIME OF EVALUATION: 0300. PRIMARY CARE PHYSICIAN: Logan Valdez MD. CHIEF COMPLAINT: Shortness of breath. HISTORY OF PRESENT ILLNESS: This is a 66-year-old female with a past medical history of cardiomyopathy, with an ejection fraction of 25% to 30%, who presented to the emergency room with acute onset of dyspnea. Patient states she was just discharged from [facility] on the for congestive heart failure. She is feeling a little bit better. She states they stopped all her fluid pills. She is not sure exactly why or which one. She had a low-salt dinner with shrimp, fresh vegetables. While lying in bed, asleep, she woke up acutely short of breath. She has been very dyspneic since then. She was given 40 mg of Lasix without any significant improvement in her respiratory status. She states that her weight has been stable around 169 pounds. She is still smoking half a pack per day. She denies any fevers. No URI symptoms. No nausea , vomiting or diarrhea. No abdominal pain. No chest pain. She does have a mild productive cough. No urinary symptoms. She denies any history of using inhaler use. She is planning to see her soil scientist in [place] on the of this week for followup. She also states she had blood transfusion during her admission at [place], she thinks on the . Otherwise, remainder of review of systems negative. In the emergency room, patient had labs and imaging. She was given 40 mg of Lasix. There is no significant improvement in her respiratory status. She is referred to the hospitalist service for further evaluation. PAST MEDICAL HISTORY: 1. Ischemic cardiomyopathy, ejection fraction 25% to 30%. 2. Duodenal lymphoma with recurrent GI bleeding, followed by Dr. De Guzman. 3. Coronary artery disease, status post stent placement. 4. Recurrent admissions for acute decompensated congestive heart failure. 5. Diabetes. 6. CKD. 7. Hypothyroidism. 8. Depression. MEDICATIONS: The patient is not entirely clear what was changed at her admission at [facility] last week as she states her fluid pills were discontinued. She states she is still taking atorvastatin 40 mg daily. She gets iron and red blood cells infusions, transfusions, and no longer taking ferrous sulfate. 1. Paroxetine 30 mg daily. 2. Levothyroxine 100 mcg daily. 3. Lantus 15 units at bedtime. 4. Carvedilol 12.5 mg p.o. b.i.d. 5. Nitroglycerin sublingual as directed. 6. Cilostazol 100 mg p.o. b.i.d. 7. Sitagliptin 50 mg daily. 8. Hydralazine 25 mg p.o. t.i.d. 9. Isosorbide mononitrate ER 30 mg daily. 10. Pantoprazole 40 mg p.o. b.i.d. ALLERGIES: PENICILLIN AND SULFA. SOCIAL HISTORY: She lives at home with her , Jerome Hill, who is her healthcare proxy. Her secondary is her son , Haris. She is still smoking. She states she has been smoking forever now. She is down to half a pack per day. No alcohol use. No illicit drug use. Reviewed her MOLST form and she is a full code. REVIEW OF SYSTEMS: A 14-point review of systems was reviewed, pertinent positives and negatives as in the HPI, otherwise negative. FAMILY HISTORY: Mother from coronary artery disease. PHYSICAL EXAMINATION GENERAL: Moderate acute respiratory distress with grunting with each expiration , at bedside. VITAL SIGNS: Temp 96.4, pulse rate 95, respiratory rate 22, oxygen saturation 95% on 6 L, blood pressure of 136/69. HEENT: Head normocephalic. Pupils are equal and reactive. Anicteric. Oropharynx: Mucous membranes dry. NECK: Supple. No lymphadenopathy. RESPIRATORY: Poor aeration. Prolonged expiratory phase. Clicking sound heard with inspiration. Rhonchorous breath sounds bilaterally as well. CARDIAC: Regular rate and rhythm. Soft systolic murmur heard throughout. ABDOMEN: Soft, nontender, nondistended. EXTREMITIES: No clubbing, cyanosis or edema, +1 DPs. NEUROLOGIC: Alert and oriented x3. No focal neurological deficits. LABORATORY DATA: White count 10, hemoglobin 11, hematocrit 33, platelets 281. D- dimer is 598. Sodium 134, potassium 4.1, chloride 102, bicarb 22, BUN 74, creatinine 2.84. Glucose 307. Mag 1.9, troponin 0.41, alk phos 115, BNP is 1492. Radiographic data shows cephalization and prominent interstitial markings consistent with CHF. EKG, poor EKG with significant amount of artifact. ASSESSMENT: This is a 66-year-old female with a past medical history of ischemic cardiomyopathy, actively smoking, who presents to the emergency room with acute onset of shortness of breath. 1. Shortness of breath. Assessment. Patient's findings are more suspicious for acute decompensated CHF. She was admitted to [facility] last week and she states she was discontinued off metolazone and Lasix. Although her weight has been stable and she has no lower extremity edema, she does have significant pulmonary edema on her chest x- ray. She has not yet responded to 40 mg of Lasix. She also is a heavy smoker. There could be a component of COPD. Plan, we will admit her to the ICU for close monitoring with the respiratory distress. Initially, we will give another 40 mg of Lasix, do a trial of albuterol nebulizer. I have started her back on her metolazone and her home medication regimen. Also, going to put in some nitro paste on. If she is still showing signs of respiratory distress, we will consider placing her on CPAP. 2. Elevated troponin. Patient with elevated troponin. She appears to have had this in the past as well. I suspect this is demand ischemia in the setting of acute decompensated CHF. She has no chest pain at this time. Plan, I am repeating an EKG as the initial one shows no significant amount of artifact and we will repeat a troponin. We will give her a full dose aspirin now and keep her on telemetry. 3. Chronic medical problems: Coronary artery disease/cardiomyopathy. As mentioned, we will resume her carvedilol, cilostazol, hydralazine, isosorbide, and resume her furosemide and her metolazone. 4. Hyperlipidemia. Resume her atorvastatin. 5. Depression. Continue with paroxetine. 6. Hypothyroidism. Continue levothyroxine. 7. Diabetes. We will continue her on her Lantus 15 units and put on lispro sliding scale. Patient states she was discontinued off her glipizide. We will check a hemoglobin A1c. She probably likely needs to go back on this or additional antihyperglycemic agents at discharge. 8. History of duodenal lymphoma. Continue her on her PPI. We will switch her to omeprazole 20 mg p.o. b.i.d. 9. DVT prophylaxis. Patient scores high risk, placed on heparin subcu t.i.d. FEN: Place the patient on a clear diet, low salt, and clear liquid diet in setting of respiratory distress. We will advance as tolerate. Also do daily weights, Is and Os. Fluid restriction. 10. Code status. Full code. PATIENT TIME: Greater than 60 minutes was spent doing history and physical, more than half the time was spent in direct patient contact discussing labs, interpreting imaging studies, and placing the patient in the intensive care unit as this is considered critical care time. [id number]/[facility] #: [id number] MTDD
[2016-09-06] MEDS ORDERED: Carvedilol TAB* 25 MG PO SCH (09:00)
[2016-09-06] MEDS: Isosorbide Mononitrate ER TAB* 30 MG PO SCH (09:44)
[2016-09-06] MEDS: hydrALAZINE TAB* 25 MG PO SCH ×3 (09:44→21:00)
[2016-09-06] MEDS: PARoxetine HCL TAB* 10 MG PO SCH (09:44)
[2016-09-06] MEDS: Omeprazole CAP* 20 MG PO SCH ×2 (09:44→21:00)
[2016-09-06] MEDS: Cilostazol TAB* 100 MG PO SCH ×2 (09:44→21:00)
[2016-09-06] MEDS: Metolazone TAB* 5 MG PO SCH (09:53)
[2016-09-06] MEDS: Carvedilol TAB* 6.25 MG PO SCH ×2 (09:53→21:00)
[2016-09-06] MEDS: Insulin LISPRO* 1 UNITS UNIT SUBCUT SCH ×3 (12:30→20:59)
--- NOTE | 2016-09-06 19:45 | CONS ---
CC: Dr. Logan Valdez * CARDIOLOGY CONSULTATION: DATE OF CONSULT: 09/06/16 INDICATION FOR CONSULT: Congestive heart failure and coronary artery disease. HISTORY OF PRESENT ILLNESS: The patient is a 66-year-old female with a very complex past medical history including ischemic cardiomyopathy, coronary artery disease, congestive heart failure, renal disease, gastric lymphoma, anemia. She was admitted to the hospital with congestive heart failure. The patient was in the hospital here at [facility] in middle of July with a GI bleed, at that time an endoscopy showed duodenal ulcers as well as her lymphoma in her small bowel. She was discharged from the hospital here. She was admitted to the hospital at [facility] for chest pain and congestive heart failure. At that time, her creatinine had gone from baseline of 2.5 to a new level of 5. The patient's diuretics were stopped at that time. She also had elevated troponins at that time. The patient had been seen by Dr. Kaba at [facility], at that time the decision was to stay with medical therapy. Cardiac catheterization was not done because of her renal insufficiency and GI bleeding. She was discharged from the hospital on 09/04/16 with a LifeVest and was to follow up with a regular investigation division lieutenant up in [place] , she was admitted to the hospital here last night with congestive heart failure. The patient also has an elevated troponin here at [facility]. In speaking with the patient this morning, she actually feels quite well. She got IV Lasix in the emergency room with a substantial improvement in her symptoms. PAST MEDICAL HISTORY: Significant for: 1. Coronary artery disease. She has had stents to her coronary arteries. She did have a cardiac catheterization in 2013, which showed 3-vessel coronary artery disease. She did not have any interventions at that time. 2. Duodenal lymphoma. 3. Anemia. 4. Heart failure. 5. Chronic kidney disease. 6. Diabetes. 7. Hypothyroidism. 8. Depression. MEDICATIONS: Her discharge medications from [facility] were: 1. Paxil 20 mg a day. 2. Synthroid 100 mcg a day. 3. Glipizide 10 mg b.i.d. 4. Insulin as directed. 5. Coreg 12.5 mg b.i.d. 6. Pletal 100 mg a day. 7. Januvia 50 mg a day. 8. Hydralazine 25 mg t.i.d. 9. Isosorbide 30 mg a day. 10. Lasix 40 mg a day. 11. Metolazone 5 mg a day. 12. Atorvastatin 40 mg a day. 13. Pantoprazole 40 mg twice a day. 14. Aspirin 81 mg a day. On discharge from [facility], the patient was not on any diuretics. She was placed on Plavix. Her other medications remain the same. ALLERGIES: To PENICILLIN and SULFA allergies. SOCIAL HISTORY: She lives with her . She continues to smoke. She smokes half a pack of cigarettes a day. No alcohol. She tries to have a low- salt diet. PHYSICAL EXAM: Height is 5 feet 4 inches, weight is 171 pounds. Blood pressure 104/52, heart rate is 68, respiratory rate is 19, oxygen saturation is 97% on room air, temperature is 97.6. Sclerae anicteric. Oropharynx is pink without erythema. Carotids are 2+ without bruits. JVD is normal. Thyroid is normal. Cardiac Exam: S1, S2 without any murmurs, rubs, or gallops. Lungs: Clear to auscultation. There is no dullness to percussion. Abdomen: Obese, soft, nontender, nondistended with normoactive bowel sounds. Extremities: Show minimal edema. She has 2+ pulses throughout. The patient is awake, alert , and oriented. She moves all 4 extremities equally. DIAGNOSTIC STUDIES/LAB DATA: Chemistries within normal limits. BUN 76, creatinine 2.9. Troponin 3.7 up to 11. Total cholesterol 116. White blood cell count 10, hemoglobin 11, hematocrit 33, platelet count 281. An echocardiogram done, on 09/01/16, showed an ejection fraction of 35%, apical akinesis. There is no evidence of aortic stenosis. There is moderate mitral regurgitation. IMPRESSION AND PLAN: This is a 66-year-old female with multiple medical problems, who is admitted to the hospital with congestive heart failure. The patient does have known 3-vessel coronary artery disease. She is not a candidate for intervention because of her anemia, renal insufficiency, and duodenal lymphoma. For now, my recommendation is to work with the patient on a close basis to monitor her congestive heart failure. The patient needs to be followed closely by her investigation division lieutenant up in [place]. She will need daily weights, weekly blood work, and weekly phone calls for monitoring her congestive heart failure and diuretic therapy. It is my recommendation the patient to be put on Bumex 2 mg a day for daily diuresis. The patient will not be on metolazone, further medications will remain the same. Again, the patient is not a candidate for any interventions. [id number]/[facility] #: [id number] [facility]
[2016-09-06] MEDS: Atorvastatin* 40 MG TAB PO SCH (21:00)
[2016-09-07] MEDS: Levothyroxine TAB* 100 MCG TAB PO SCH (06:00)
[2016-09-07] MEDS: Heparin VIAL(*) 5000 UNITS/ML VIAL (FIVE THOUSAND) SUBCUT SCH ×3 (06:00→20:45)
[2016-09-07 06:15] LABS: Hematocrit 28 % (35-47); Hemoglobin 9.5 g/dl (12.0-16.0); Mean Corpuscular HGB Conc 34 g/dl (31-36); Mean Corpuscular Hemoglobin 29 pg (27-31); Mean Corpuscular Volume 86 fL (80-97); Mean Platelet Volume 8 um3 (7.4-10.4); Red Blood Count 3.31 10^6/ul (4.0-5.4); Red Cell Distribution Width 19 % (10.5-15); White Blood Count 5.3 10^3/ul (3.5-10.8)
[2016-09-07 06:30] LABS: BUN/Creatinine Ratio 25.8 (8-20); Calcium 9.1 mg/dL (8.6-10.3); EGFR African American 21.5 (>60); EGFR Non-African American 16.8 (>60); Potassium 3.7 mmol/L (3.5-5.0)
[2016-09-07] MEDS: Carvedilol TAB* 6.25 MG PO SCH ×2 (08:52→20:55)
[2016-09-07] MEDS: hydrALAZINE TAB* 25 MG PO SCH ×3 (08:53→20:44)
[2016-09-07] MEDS: Isosorbide Mononitrate ER TAB* 30 MG PO SCH (08:53)
[2016-09-07] MEDS: PARoxetine HCL TAB* 10 MG PO SCH (08:53)
[2016-09-07] MEDS: Omeprazole CAP* 20 MG PO SCH ×2 (08:54→20:55)
[2016-09-07] MEDS: Cilostazol TAB* 100 MG PO SCH ×2 (08:54→20:44)
[2016-09-07] MEDS: Insulin GLARGINE(*) 1 UNITS UNIT SUBCUT SCH (08:55)
[2016-09-07] MEDS: Insulin LISPRO* 1 UNITS UNIT SUBCUT SCH ×4 (08:56→20:45)
[2016-09-07] MEDS: Bumetanide TAB* 2 MG PO SCH (08:59)
--- NOTE | 2016-09-07 09:01 | PN ---
Subjective Date of Service: 09/07/16 Interval History: Pt is feeling better. She states she is able to cough easier and is bringing up small amounts of mucous. She states her breathing is much more comfortable. She noticed that her most recent BM was dark in color. She denies any abdominal pain. No CP. Family History: Unchanged from Admission Social History: Unchanged from Admission Past Medical History: Unchanged from Admission Objective Active Medications: Acetaminophen (Tylenol Tab*) 650 mg PO Q4H PRN PRN Reason: FEVER/PAIN Al Hydrox/Mg Hydrox/Simethicone (Maalox Plus*) 30 ml PO Q6H PRN PRN Reason: INDIGESTION Albuterol (Ventolin 2.5 Mg/3 Ml Neb.Casandra*) 2.5 mg INH Q2H PRN PRN Reason: SOB/WHEEZING Atorvastatin Calcium (Lipitor*) 40 mg PO 2100 [facility] Last Admin: 09/06/16 21:00 Dose: 40 mg Bumetanide (Bumex Tab*) 2 mg PO DAILY [facility] Carvedilol (Coreg Tab*) 12.5 mg PO BID [facility] Last Admin: 09/07/16 08:52 Dose: 12.5 mg Cilostazol (Pletal Tab*) 100 mg PO BID [facility] Last Admin: 09/07/16 08:54 Dose: 100 mg Device (Nicotine Mouth Piece*) 1 each INH .USE WITH NICOTROL PRN PRN Reason: CRAVING Dextrose (D50w Syringe 50 Ml*) 12.5 gm IV PUSH .FOR FS < 60 - SS PRN PRN Reason: FS < 60 Docusate Sodium (Colace Cap*) 100 mg PO BID PRN PRN Reason: CONSTIPATION Heparin Sodium (Porcine) (Heparin Vial(*)) 5,000 units SUBCUT Q8HR [facility] Last Admin: 09/07/16 06:00 Dose: 5,000 units Hydralazine HCl (Apresoline Tab*) 25 mg PO TID [facility] Last Admin: 09/07/16 08:53 Dose: 25 mg Insulin Glargine (Lantus(*)) 15 units SUBCUT 0730 [facility] Insulin Human Lispro (Humalog*) 0 units SUBCUT ACHS [facility] PRN Reason: Protocol Last Admin: 09/06/16 20:59 Dose: 4 unit Isosorbide Mononitrate (Imdur Er Tab*) 30 mg PO DAILY [facility] Last Admin: 09/07/16 08:53 Dose: 30 mg Levothyroxine Sodium (Synthroid Tab*) 100 mcg PO DAILY@0600 [facility] Last Admin: 09/07/16 06:00 Dose: 100 mcg Magnesium Hydroxide (Milk Of Magnesia Liq*) 30 ml PO Q4H PRN PRN Reason: CONSTIPATION Metolazone (Zaroxolyn Tab*) 5 mg PO MoWeFr@0900 [facility] Last Admin: 09/06/16 09:53 Dose: 5 mg Nicotine (Nicotine Inhaler*) 10 mg INH Q2H PRN PRN Reason: CRAVING Omeprazole (Prilosec Cap*) 20 mg PO BID [facility] Last Admin: 09/07/16 08:54 Dose: 20 mg Ondansetron HCl (Zofran Inj*) 4 mg IV Q4H PRN PRN Reason: NAUSEA/VOMITING Paroxetine HCl (Paxil Tab*) 30 mg PO DAILY [facility] Last Admin: 09/07/16 08:53 Dose: 30 mg Senna (Senokot Tab*) 1 tab PO BID PRN PRN Reason: CONSTIPATION Vital Signs 09/06/16 09/06/16 09/06/16 09:00 09:15 09:30 Temperature Pulse Rate 72 72 75 Respiratory 18 27 16 Rate Blood Pressure 107/53 (mmHg) O2 Sat by Pulse 94 94 95 Oximetry 09/06/16 09/06/16 09/06/16 09:45 10:00 10:15 Temperature Pulse Rate 78 76 Respiratory 18 19 22 Rate Blood Pressure 122/62 (mmHg) O2 Sat by Pulse 95 96 Oximetry 09/06/16 09/06/16 09/06/16 11:00 12:00 13:00 Temperature 98 F Pulse Rate 73 67 71 Respiratory 17 19 16 Rate Blood Pressure 101/49 104/52 107/44 (mmHg) O2 Sat by Pulse 96 97 96 Oximetry 09/06/16 09/06/16 09/06/16 14:00 15:00 15:25 Temperature 98.5 F Pulse Rate 71 73 Respiratory 17 14 Rate Blood Pressure 108/49 109/41 (mmHg) O2 Sat by Pulse 95 94 Oximetry 09/06/16 09/06/16 09/06/16 16:00 17:00 17:59 Temperature Pulse Rate 78 76 Respiratory 16 21 17 Rate Blood Pressure 113/55 121/55 (mmHg) O2 Sat by Pulse 96 94 Oximetry 09/06/16 09/06/16 09/06/16 18:00 19:00 19:45 Temperature Pulse Rate 78 74 Respiratory 17 17 17 Rate Blood Pressure 104/53 111/51 (mmHg) O2 Sat by Pulse 95 95 Oximetry 09/06/16 09/06/16 09/06/16 19:54 20:00 21:00 Temperature Pulse Rate 78 88 74 Respiratory 25 27 17 Rate Blood Pressure 122/47 116/43 (mmHg) O2 Sat by Pulse 95 96 95 Oximetry 09/06/16 09/06/16 09/06/16 22:00 23:00 23:19 Temperature Pulse Rate 76 73 Respiratory 19 17 19 Rate Blood Pressure 103/46 117/51 (mmHg) O2 Sat by Pulse 93 94 Oximetry 09/06/16 09/07/16 09/07/16 23:20 00:00 00:02 Temperature 97.9 F Pulse Rate 75 72 72 Respiratory 18 18 18 Rate Blood Pressure 113/45 (mmHg) O2 Sat by Pulse 94 94 93 Oximetry 09/07/16 09/07/16 09/07/16 00:53 01:00 02:00 Temperature Pulse Rate 72 70 Respiratory 22 17 17 Rate Blood Pressure 97/33 106/36 (mmHg) O2 Sat by Pulse 94 91 Oximetry 09/07/16 09/07/16 09/07/16 02:08 03:00 03:49 Temperature 98.1 F Pulse Rate 70 Respiratory 18 16 Rate Blood Pressure 112/48 (mmHg) O2 Sat by Pulse 94 Oximetry 09/07/16 09/07/16 09/07/16 04:00 05:00 06:00 Temperature Pulse Rate 69 75 Respiratory 17 21 16 Rate Blood Pressure 111/43 114/44 98/45 (mmHg) O2 Sat by Pulse 94 96 Oximetry 09/07/16 08:00 Temperature 98 F Pulse Rate Respiratory Rate Blood Pressure (mmHg) O2 Sat by Pulse Oximetry Oxygen Devices in Use Now: None - 100% Appearance: Middle aged female sitting up in bed, NAD Eyes: No Scleral Icterus Ears/Nose/Mouth/Throat: Mucous Membranes Moist Respiratory: Symmetrical Chest Expansion and Respiratory Effort, Clear to Auscultation Cardiovascular: NL Sounds; No Murmurs; No JVD, RRR, No Edema Abdominal: NL Sounds; No Tenderness; No Distention Extremities: No Clubbing, Cyanosis Skin: No Rash or Ulcers, No Nodules or Sclerosis Neurological: Alert and Oriented x 3 Result Diagrams: 09/07/16 06:06 09/07/16 06:06 Microbiology and Other Data: Microbiology 09/06/16 04:47 Nasal Screen MRSA (PCR)([facility]) - Final Nasal Mrsa Negative Assess/Plan/Problems-Billing Ms Santana is a 66 yo F who has a h/o severe systolic dysfunction, CAD, duodenal lymphoma and type II DM who presented to the ER with c/o sudden onset of severe SOB and was admitted for acute decompensated CHF. - Patient Problems (1) Acute systolic CHF (congestive heart failure) Current Visit: Yes Status: Acute Code(s): I50.21 - ACUTE SYSTOLIC ( CONGESTIVE) HEART FAILURE SNOMED Code(s): 288859312 Comment: Much improved after IV lasix yesterday. She has now been started on bumex per Dr. Rebolledo's recommendations. Managing her CHF is going to need to be very involved for the patient with frequent lab draws, daily weights and communication with her encapsulator with instructions on what to do with her diuretic. She clearly can not be off all diuretics as she presented in decompensated CHF from being off of them. Contiue coreg, hydralazine and imdur. Transfer to the floor and monitor fluid status. (2) CAD (coronary artery disease) Current Visit: Yes Status: Chronic Code(s): I25.10 - ATHSCL HEART DISEASE OF [place] CORONARY ARTERY W/O ANG PCTRS SNOMED Code(s): 47125572 Comment: The patients troponin peaked at 13.46 and has since trended down. I suspect the elevated troponin is secondary to demand ischemia. She had no chest pain. She is not a candidate for catheterization given her GI bleed/anemia and inability to be on antiplatelets. Continue coreg. (3) Anemia Current Visit: Yes Status: Acute Onset Date: 01/16/14 Code(s): D64.9 - ANEMIA, UNSPECIFIED SNOMED Code(s): 854942200 Comment: Hb worsened today (11 to 9.5). She states her stools have been dark recently. Will continue omeprazole 20mg BID and recheck a H/H later this afternoon. If Hb trending down further stop SQ heparin. I do not think she needs a repeat EGD as she had one just under a month ago. (4) Chronic kidney disease, stage IV (severe) Current Visit: Yes Status: Acute Code(s): N18.4 - CHRONIC KIDNEY DISEASE, STAGE 4 (SEVERE) SNOMED Code(s): 906849483 Comment: Creatinine is stable today. Continue to follow closely in the setting of being on bumex. (5) Type II diabetes mellitus Current Visit: Yes Status: Acute Comment: A1c shows fair control. Continue lantus and lispro sliding scale. (6) Hypertension Current Visit: Yes Status: Chronic Onset Date: 11/17/13 Code(s): I10 - ESSENTIAL (PRIMARY) HYPERTENSION SNOMED Code(s): 23468211 Comment: BP is under good control. Continue coreg, hydralazine and imdur. (7) Hyperlipidemia Current Visit: Yes Status: Chronic Code(s): E78.5 - HYPERLIPIDEMIA, UNSPECIFIED SNOMED Code(s): 32413547 Comment: Continue lipitor. (8) Hypothyroid Current Visit: Yes Status: Chronic Onset Date: 11/17/13 Code(s): E03.9 - HYPOTHYROIDISM, UNSPECIFIED SNOMED Code(s): 97245278 Comment: Continue current dose of synthroid. (9) Lymphoma of gastrointestinal tract Current Visit: Yes Status: Acute Code(s): C85.93 - NON-HODGKIN LYMPHOMA, UNSP, INTRA-ABDOMINAL LYMPH NODES SNOMED Code(s): 717462727 Comment: Duodenal lymphoma dx 2011. Currently she is not recieving treatment. (10) Depression Current Visit: Yes Status: Chronic Code(s): F32.9 - MAJOR DEPRESSIVE DISORDER, SINGLE EPISODE, UNSPECIFIED SNOMED Code(s): 15920370 Comment: Continue paxil. (11) DVT prophylaxis Current Visit: Yes Status: Acute Code(s): ENQ2636 - SNOMED Code(s): 494327406 Comment: SQ heparin (12) Full code status Current Visit: Yes Status: Acute Code(s): Z78.9 - OTHER SPECIFIED HEALTH STATUS SNOMED Code(s): 393112508
[2016-09-07 14:28] LABS: Hematocrit 32 % (35-47); Hemoglobin 10.6 g/dl (12.0-16.0)
[2016-09-07] MEDS: Atorvastatin* 40 MG TAB PO SCH (20:44)
[2016-09-08] MEDS: Levothyroxine TAB* 100 MCG TAB PO SCH (05:36)
[2016-09-08] MEDS: Heparin VIAL(*) 5000 UNITS/ML VIAL (FIVE THOUSAND) SUBCUT SCH ×2 (05:36→12:28)
[2016-09-08] MEDS: Insulin LISPRO* 1 UNITS UNIT SUBCUT SCH ×2 (07:28→12:27)
[2016-09-08] MEDS: Isosorbide Mononitrate ER TAB* 30 MG PO SCH (08:14)
[2016-09-08] MEDS: Cilostazol TAB* 100 MG PO SCH (08:14)
[2016-09-08] MEDS: Carvedilol TAB* 6.25 MG PO SCH (08:15)
[2016-09-08] MEDS: hydrALAZINE TAB* 25 MG PO SCH ×2 (08:15→13:39)
[2016-09-08] MEDS: Insulin GLARGINE(*) 1 UNITS UNIT SUBCUT SCH (08:15)
[2016-09-08] MEDS: Omeprazole CAP* 20 MG PO SCH (08:15)
[2016-09-08] MEDS: Bumetanide TAB* 2 MG PO SCH (08:15)
[2016-09-08] MEDS: PARoxetine HCL TAB* 10 MG PO SCH (08:15)
[2016-09-08] MEDS: Metolazone TAB* 5 MG PO SCH (08:15)
[2016-09-08 11:28] VITALS: BP 107/50
--- NOTE | 2016-09-09 10:49 | DS ---
CC: Dr. Valdez; Dr. Tho Snell * DISCHARGE SUMMARY: DATE OF ADMISSION: 09/06/16 DATE OF DISCHARGE: 09/08/16 PRIMARY CARE PROVIDER: Dr. Valdez. VIRTUAL CUSTOMER ASSISTANT: Dr. Tho Snell at [facility]. PRINCIPAL DIAGNOSES: 1. Acute decompensated systolic congestive heart failure. 2. Type 2 non-ST segment elevation myocardial infarction. SECONDARY DIAGNOSES: 1. Severe ischemic cardiomyopathy. 2. Coronary artery disease. 3. Stage 4 chronic kidney disease. 4. Gastric lymphoma. 5. Chronic anemia. DISCHARGE MEDICATIONS: 1. Glipizide 10 mg p.o. b.i.d. 2. Lipitor 40 mg p.o. daily. 3. Pletal 100 mg p.o. b.i.d. 4. Coreg 12.5 mg p.o. b.i.d. 5. Synthroid 100 mcg p.o. daily. 6. Imdur 30 mg p.o. daily. 7. Nitroglycerin 0.4 mg SL q.5 minutes p.r.n. chest pain. 8. Januvia 50 mg p.o. daily. 9. Protonix 40 mg p.o. b.i.d. 10. Paxil 30 mg p.o. q.h.s. 11. Hydralazine 25 mg p.o. t.i.d. 12. Lantus 15 units subcutaneous q.h.s. 13. Bumex 2 mg p.o. daily (new). HOSPITAL COURSE: Ms. Santana is a 66-year-old female, who is recently hospitalized the week prior to this admission at [facility] with acute renal failure, elevated troponin, and CHF, who presents to the emergency room with complaints of sudden onset of severe shortness of breath. The patient states that during her hospitalization at [facility], she was taken off her diuretic therapy due to her acute renal failure. The patient had been fine up until the night prior to admission. At that point, she suddenly became very short of breath. She presented to the ER and was clearly in acute decompensated heart failure. The patient received IV Lasix in the emergency room and with this, she had marked improvement in her symptoms. The patient continued to improve over the course of her hospitalization. I did ask for Cardiology evaluation as the patient bumped her troponin to a peak at 13.46. Dr. Rebolledo saw the patient in consultation and did not recommend any further evaluation or catheterization given the elevated troponin due to her chronic kidney disease and recent GI bleed. The patient was recommended to be started on Bumex 2 mg daily. It was recommended that she have weekly labs and close followup with her cloth mercerizer back tender. I have ordered labs for the patient on a weekly basis until she has a followup appointment with her cloth mercerizer back tender. I have asked her to stay in contact with cardiology office and let them know how her symptoms are to determine whether or not she needs to hold or continue on her diuretic therapy. At this point, the patient is feeling much improved and ready for discharge home. On the day of discharge, the patient is awake, alert, and oriented, sitting up in bed, in no acute distress. Her vital signs are stable. Her cardiac exam reveals normal S1, S2 with a regular rate and rhythm. Her lungs are clear and she has no lower extremity edema. Her abdomen is soft, nontender, nondistended. The patient is stable and ready for discharge home. FOLLOWUP CONCERNS: The patient is being discharged home today, 09/08/16. ACTIVITY LEVEL: As tolerated. DIET: Low salt, diabetic. CONDITION ON DISCHARGE: Stable. TIME SPENT: Thirty-five minutes was spent discharging this patient. [id number]/CPS #: [id number] MTDD
== END 2016-09-08 15:13 | disposition home or self-care (01) | DRG 280 ==
LOC: ED 01:46 → ICU 03:26 → MEDTELE 09-07 09:08
PROVIDERS: ADMIT Pediatrics; ATTEND Hospitalist
DX: I13.0 Hypertensive heart and chronic kidney disease with heart failure and stage 1 through stage 4 chronic kidney disease, or unspecified chronic kidney disease (principal); I21.4 Non-ST elevation (NSTEMI) myocardial infarction; I50.23 Acute on chronic systolic (congestive) heart failure; C85.93 Non-Hodgkin lymphoma, unspecified, intra-abdominal lymph nodes; N18.4 Chronic kidney disease, stage 4 (severe); E11.22 Type 2 diabetes mellitus with diabetic chronic kidney disease; I25.10 Atherosclerotic heart disease of native coronary artery without angina pectoris; J45.909 Unspecified asthma, uncomplicated; F32.9 Major depressive disorder, single episode, unspecified; F17.210 Nicotine dependence, cigarettes, uncomplicated; I25.5 Ischemic cardiomyopathy; E03.9 Hypothyroidism, unspecified; I34.0 Nonrheumatic mitral (valve) insufficiency; D53.9 Nutritional anemia, unspecified; Z95.5 Presence of coronary angioplasty implant and graft; Z81.2 Family history of tobacco abuse and dependence; Z88.0 Allergy status to penicillin; Z88.2 Allergy status to sulfonamides; Z85.820 Personal history of malignant melanoma of skin; Z90.710 Acquired absence of both cervix and uterus; Z90.49 Acquired absence of other specified parts of digestive tract; Z82.49 Family history of ischemic heart disease and other diseases of the circulatory system; Z79.82 Long term (current) use of aspirin; Z79.4 Long term (current) use of insulin
CPT/HCPCS: 36415; 71020; 80048; 80053; 80061; 83036; 83605; 83735; 83880; 84484; 85014; 85018; 85025; 85379; 87641; 93005; 94760; A9270-GY; J1644; J1940

== ENCOUNTER 2016-10-02 00:12 | Observation (INO) | payer MEDICARE, OTHER ==
[2016-10-02] MEDS ORDERED: Albuterol/Ipratropium NEB.SOL* Albuterol 2.5 MG/Ipratropium 0.5 MG 3 ML INH ONE (00:23)
[2016-10-02] MEDS ORDERED: Albuterol/Ipratropium NEB.SOL* Albuterol 2.5 MG/Ipratropium 0.5 MG 3 ML ONE (00:25)
[2016-10-02] MEDS ORDERED: Bumetanide IV* 0.25 MG/ML 4 ML VIAL IV ONE (00:35)
[2016-10-02 00:55] LABS: Albumin 3.8 g/dL (3.2-5.2); BUN/Creatinine Ratio 20.1 (8-20); Calcium 8.9 mg/dL (8.6-10.3); EGFR African American 16.6 (>60); EGFR Non-African American 12.9 (>60); Globulin 2.7 g/dL (2-4); Potassium 4.1 mmol/L (3.5-5.0); Total Bilirubin 0.6 mg/dL (0.2-1.0); Total Protein 6.5 g/dL (6.4-8.9)
[2016-10-02 00:59] LABS: Hematocrit 31 % (35-47); Hemoglobin 10.4 g/dl (12.0-16.0); Mean Corpuscular HGB Conc 34 g/dl (31-36); Mean Corpuscular Hemoglobin 31 pg (27-31); Mean Corpuscular Volume 91 fL (80-97); Mean Platelet Volume 8 um3 (7.4-10.4); Red Blood Count 3.38 10^6/ul (4.0-5.4); Red Cell Distribution Width 20 % (10.5-15); White Blood Count 7.7 10^3/ul (3.5-10.8)
[2016-10-02 01:05] LABS: Troponin I 0.09 ng/mL (<0.04)
[2016-10-02] MEDS ORDERED: CMCS: Melatonin (NF) 3 MG TAB PO PRN (02:23)
[2016-10-02] MEDS ORDERED: Albuterol 2.5 MG/3 ML NEB.SOL* (0.083%) INH PRN (02:23)
[2016-10-02] MEDS ORDERED: Acetaminophen TAB* 325 MG PO PRN (02:23)
[2016-10-02] MEDS ORDERED: Nicotine Inhaler* 10 MG AMP INH PRN (02:23)
[2016-10-02] MEDS ORDERED: Ondansetron INJ* 2 MG/ML VIAL IV PRN (02:24)
--- NOTE | 2016-10-02 02:26 | HP ---
H&P (Free Text) History and Physical: PCP: Anamaria Valdez MD Date/Time of Evaluation: 10/02/2016 0210 CC: SOB HPI: Mrs Santana is a 66YO female HX ischemic cardiomyopathy EF 25-30% & recurrent decompensated CHF presenting tonight with onset 3-4 days ago of gradually worsening SOB and mild LE swelling. She saw her PCP who advised her to increase her bumetanide to BID for 2 days. Yesterday she saw her utility agent who advised her to continue with BID bumetanide indefinitely. However, tonight she was in bed ~2230 with worsening SOB prompting her to present. She denies chest pain, palpitation, F/C, cough, congestion, N/V, or other issues. She reports following a low sodium diet. PMedHx CAD/AR ischemic cardiomyopathy EF 25-30% chronic systolic HF melanoma PAOD HLD duodenal lymphoma w/ recurrent bleeding DM2 CKD stg V hypothyroidism GERD depression Ambulatory Orders Levothyroxine TAB* [Synthroid 100 MCG TAB*] 100 mcg PO QAM 09/14/12 PARoxetine HCL TAB* [Paxil TAB*] 30 mg PO BEDTIME 09/14/12 glipiZIDE TAB* [Glucotrol TAB*] 10 mg PO BID 09/14/12 Carvedilol TAB* [Coreg TAB*] 12.5 mg PO BID 04/12/14 Nitroglycerin [Nitrostat] 0.4 mg SL SEE INSTRUCTIONS PRN 04/12/14 Sitagliptin Phosphate [Januvia] 50 mg PO DAILY 03/14/15 Isosorbide Mononitrate ER TAB* [Imdur ER TAB*] 30 mg PO DAILY #30 tab.er hydrALAZINE TAB* [Apresoline TAB*] 25 mg PO TID #90 tab 03/15/15 Atorvastatin* [Lipitor 40 MG*] 40 mg PO 1700 #30 tab 08/16/16 ALPRAZolam TAB* [Xanax TAB*] 0.25 mg PO DAILY PRN 10/02/16 Aspirin [Aspirin 81 MG TAB] 81 mg PO DAILY 10/02/16 Bumetanide TAB* [Bumex 2 MG TAB*] 2 mg PO BID 10/02/16 Cholecalciferol TAB* [Vitamin D TAB*] 2,000 units PO DAILY 10/02/16 Ferrous Sulfate [Iron] 325 mg PO DAILY 10/02/16 Insulin GLARGINE(*) [Lantus(*)] 20 units SUBCUT BEDTIME 10/02/16 Lisinopril TAB* [Prinivil TAB*] 2.5 mg PO DAILY 10/02/16 Metoprolol Tartrate [Lopressor] 25 mg PO BID 10/02/16 Pantoprazole TAB (NF) [Protonix TAB (NF)] 40 mg PO DAILY 10/02/16 amLODIPine TAB* [Norvasc 5 mg TAB*] 5 mg PO DAILY 10/02/16 Allergies Penicillin V [From Pen-Vee-K] Allergy (Severe, Verified 10/02/16 00:14) Rash HIVES Sulfa Antibiotics Allergy (Verified 10/02/16 00:14) Unknown Reaction Details PSurgHx section x2 cholecystectomy ovarian cyst excision cardiac stent x2 melanoma excision RLE x2 tonsillectomy appendectomy SocHx: current 1/2 PPD smoker, no alcohol or recreational drugs; lives with her ; full code status FamHx: Mother and Father passed in their 80s from CAD. ROS: as above, otherwise reviewed and all were negative Constitutional: NAD, normally developed, obese white female vitals: Vital Signs Temp 35.9 C 10/02/16 00:16 Pulse 97 10/02/16 00:32 Resp 22 10/02/16 01:10 BP 155/76 10/02/16 00:16 Pulse Ox 99 10/02/16 00:32 Intake & Output 10/01/16 10/01/16 10/02/16 11:59 23:59 11:59 Weight 78.018 kg HEENM: atraumatic; sclera/conjunctiva: non-icteric/clear; hearing: clinically intact; oropharynx: clear Neck: soft tissue: non-tender; thyroid: normal Pulmonary: clear to auscultation bilaterally, good aeration, no accessory muscle use CV: RR/RR, normal S1S2, no carotid bruit, no jugular venous distention, 2+ B DP/ PT, no edema Abdominal: soft, non-distended, non-tender, no rebound/guarding/rigidity, normoactive bowel sounds, no hepatosplenomegaly or masses, no costovertebral angle tenderness Musculoskeletal: general: grossly intact; gait: stable Integumental: normal appearance and texture of exposed skin Psychiatric orientation: AA&O to PPS affect: calm mood: cooperative eye contact: fair content: reliable responses: timely insight: good Testing: Lab Results 10/02/16 10/02/16 10/02/16 Range/Units 00:24 00:24 00:24 WBC 7.7 (3.5-10.8) 10^3/ul RBC 3.38 L (4.0-5.4) 10^6/ul Hgb 10.4 L (12.0-16.0) g/dl Hct 31 L (35-47) % MCV 91 (80-97) fL MCH 31 (27-31) pg MCHC 34 (31-36) g/dl RDW 20 H (10.5-15) % Plt Count 246 (150-450) 10^3/ul MPV 8 (7.4-10.4) um3 Neut % (Auto) 84.7 H (38-83) % Lymph % (Auto) 5.3 L (25-47) % [place] % (Auto) 4.5 (1-9) % Eos % (Auto) 3.6 (0-6) % Baso % (Auto) 1.9 (0-2) % Absolute Neuts (auto) 6.5 (1.5-7.7) 10^3/ul Absolute Lymphs (auto) 0.4 L (1.0-4.8) 10^3/ul Absolute Monos (auto) 0.3 (0-0.8) 10^3/ul Absolute Eos (auto) 0.3 (0-0.6) 10^3/ul Absolute Basos (auto) 0.1 (0-0.2) 10^3/ul Absolute Nucleated RBC 0 10^3/ul Nucleated RBC % 0.1 INR (Anticoag Therapy) (0.89-1.11) Sodium 136 (133-145) mmol/L Potassium 4.1 (3.5-5.0) mmol/L Chloride 102 (101-111) mmol/L Carbon Dioxide 25 (22-32) mmol/L Anion Gap 9 (2-11) mmol/L BUN 71 H (6-24) mg/dL Creatinine 3.54 H (0.51-0.95) mg/dL Est GFR ( Amer) 16.6 (>60) Est GFR (Non-Af Amer) 12.9 (>60) BUN/Creatinine Ratio 20.1 H (8-20) Glucose 258 H (70-100) mg/dL Lactic Acid 1.2 (0.5-2.0) mmol/L Calcium 8.9 (8.6-10.3) mg/dL Total Bilirubin 0.60 (0.2-1.0) mg/dL AST 29 (13-39) U/L ALT 27 (7-52) U/L Alkaline Phosphatase 117 H (34-104) U/L Troponin I 0.09 H* (<0.04) ng/mL B-Natriuretic Peptide ( - 100) pg/mL Total Protein 6.5 (6.4-8.9) g/dL Albumin 3.8 (3.2-5.2) g/dL Globulin 2.7 (2-4) g/dL Albumin/Globulin Ratio 1.4 (1-3) 10/02/16 10/02/16 Range/Units 00:24 00:24 WBC (3.5-10.8) 10^3/ul RBC (4.0-5.4) 10^6/ul Hgb (12.0-16.0) g/dl Hct (35-47) % MCV (80-97) fL MCH (27-31) pg MCHC (31-36) g/dl RDW (10.5-15) % Plt Count (150-450) 10^3/ul MPV (7.4-10.4) um3 Neut % (Auto) (38-83) % Lymph % (Auto) (25-47) % [place] % (Auto) (1-9) % Eos % (Auto) (0-6) % Baso % (Auto) (0-2) % Absolute Neuts (auto) (1.5-7.7) 10^3/ul Absolute Lymphs (auto) (1.0-4.8) 10^3/ul Absolute Monos (auto) (0-0.8) 10^3/ul Absolute Eos (auto) (0-0.6) 10^3/ul Absolute Basos (auto) (0-0.2) 10^3/ul Absolute Nucleated RBC 10^3/ul Nucleated RBC % INR (Anticoag Therapy) 1.02 (0.89-1.11) Sodium (133-145) mmol/L Potassium (3.5-5.0) mmol/L Chloride (101-111) mmol/L Carbon Dioxide (22-32) mmol/L Anion Gap (2-11) mmol/L BUN (6-24) mg/dL Creatinine (0.51-0.95) mg/dL Est GFR ( Amer) (>60) Est GFR (Non-Af Amer) (>60) BUN/Creatinine Ratio (8-20) Glucose (70-100) mg/dL Lactic Acid (0.5-2.0) mmol/L Calcium (8.6-10.3) mg/dL Total Bilirubin (0.2-1.0) mg/dL AST (13-39) U/L ALT (7-52) U/L Alkaline Phosphatase (34-104) U/L Troponin I (<0.04) ng/mL B-Natriuretic Peptide 1677 H ( - 100) pg/mL Total Protein (6.4-8.9) g/dL Albumin (3.2-5.2) g/dL Globulin (2-4) g/dL Albumin/Globulin Ratio (1-3) ECG, personally reviewed: sinus tachycardia rate 100, inferior Q-waves, no ischemia CXR, personally reviewed: CHF ECHO (07/2016): Conclusions: There are multiple regional wall motion abnormalities. The estimated ejection fraction is 25-30%. The left ventricular diastolic filling pattern is consistent with pseudonormalization. The right ventricular chamber size and systolic function are within normal limits. There is no evidence of aortic stenosis. There is moderate mitral regurgitation. There is trace tricuspid regurgitation. Unable to estimate the right ventricular systolic pressure. There is no significant pericardial effusion. Compared to study of 03/14/15, the LV function is slightly lower. The degree of MR is slightly worse. Impression: 66F presenting with acute on chronic systolic HF DIAGNOSIS & PLAN Primary acute on chronic systolic HF : bumetanide diuresis : strict I&Os : daily weights : supplemental oxygen : low sodium diet : supportive care elevated troponin : suspect demand ischemia : telemetry : aspirin : continue current carvedilol : trend Secondary CAD/AR : continue aspirin, metoprolol, & isosorbide mononitrate HTN : continue lisinopril, metoprolol, carvedilol, amlodipine, & hydralazine ischemic cardiomyopathy EF 25-30% : continue lisinopril & carvedilol PAOD/HLD : continue atorvastatin DM2 : consistent carb diet : continue glipizide, sitagliptin, & glargine : A1c 7.1 08/2016 CKD stg V : avoid nephrotoxic agents, monitor periodically hypothyroidism : continue levothyroxine GERD : continue pantoprazole depression : continue paroxetine anxiety : continue alprazolam Admission Rational: inpatient for acute decompensated systolic HF not anticipated to adequately resolve w/i 48H to allow for discharge DVTp: SCDs & heparin SQ Code Status: full HCP:
--- NOTE | 2016-10-02 02:39 | ED ---
Agata Bernard Alfonso, scribed for Cheikh Kunz MD on 10/02/16 at 0037 . Shortness of Breath - HPI Summary HPI Summary: This patient is a 66 year old F BIBA to [facility] accompanied by ficarmelita with a chief complaint of SOB since earlier today. Patient is moaning and groaning on arrival. She is on 3L nasal cannula. Symptoms aggravated by smoking and alleviated by nothing. Pt reports diaphoresis, and a productive cough. Pt denies fever, chills, and CP. Tobacco abuse disorder. PMHx of DM, CHF, and CAD. - History of Current Complaint Chief Complaint: EDShortnessOfBreath Time Seen by Provider: 10/02/16 00:21 Hx Obtained From: Patient, Family/Data Solutions Architect - [place] Onset/Duration: Sudden Onset, Lasting Hours - Earlier today, Still Present Current Severity: Moderate Aggrevating Factors: Allergens - Smoking Alleviating Factors: Nothing Associated Signs & Symptoms: Cough (Productive), Diaphoresis - Allergy/Home Medications Allergies/Adverse Reactions: Allergies Allergy/AdvReac Type Severity Reaction Status Date / Time Penicillin V [From Pen-Vee-K] Allergy Severe Rash Verified 10/02/16 00:14 Sulfa Antibiotics Allergy Unknown Verified 10/02/16 00:14 Reaction Details PMH/Surg Hx/FS Hx/Imm Hx Endocrine/Hematology History: Reports: Hx Diabetes, Hx Thyroid Disease Cardiovascular History: Reports: Hx Angina, Hx Congestive Heart Failure, Hx Coronary Artery Disease, Hx Hypertension, Other Cardiovascular Problems/ Disorders - Cardiac cath 2011 with 2 stents Denies: Hx Peripheral Vascular Disease Respiratory History: Reports: Hx Pleural Effusion Denies: Other Respiratory Problems/Disorders Comment Only: Hx Asthma - ALSO HX OF STOMACH CANCER 2011 GI History: Reports: Hx Gastrointestinal Bleed Denies: Other GI Disorders - CA, meghann, "oozing bleed" History: Reports: Hx Chronic Renal Failure, 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 melanoma- 2000 lymph nodes removed from right groin. -2003 spot removed from top of right foot. - Surgical History Surgery Procedure, Year, and Place: ,cholecystectomy, hysterectomy, melanoma- 2000 lymph nodes reoved right groin, 2003 spot removed from top of right foot. - Immunization History Date of Tetanus Vaccine: Unk Date of Influenza Vaccine: Fall 2013 Infectious Disease History: No Infectious Disease History: Denies: Traveled Outside the [place] in Last 30 Days - Family History Known Family History: Positive: Cardiac Disease - Positive to mother - Social History Alcohol Use: None Substance Use Type: Reports: None Hx Tobacco Use: Yes Smoking Status (MU): Heavy Every Day Tobacco Smoker Type: Cigarettes Length of Time of Smoking/Using Tobacco: About 40yrs Have You Smoked in the Last Year: Yes Review of Systems Positive: Skin Diaphoresis. Negative: Fever, Chills Negative: Chest Pain Positive: Shortness Of Breath, Cough - Productive Psychological: Other - Positive moaning and groaning All Other Systems Reviewed And Are Negative: Yes Physical Exam - Summary Physical Exam Summary: The patient is well-nourished in mild respiratory distress and in no acute pain. The skin is warm and dry and skin color reflects adequate perfusion. HEENT: The head is normocephalic and atraumatic. The pupils are equal and reactive. The conjunctivae are clear and without drainage. Nares are patent and without drainage. Mouth reveals moist mucous membranes and the throat is without erythema and exudate. The external ears are intact. The ear canals are patent and without drainage. The tympanic membranes are intact. Neck is supple with full range of motion and non-tender. There are no carotid bruits. There is no neck vein distension. Respiratory: Chest is non-tender. Lungs are clear to auscultation and breath sounds are symmetrical and equal. Chest retractions. Cardiovascular: Heart is regular rate and rhythm. There is no murmur or rub auscultated. There is no peripheral edema and pulses are symmetrical and equal. Abdomen: The abdomen is soft and non-tender. There are normal bowel sounds heard in all four quadrants and there is no organomegaly palpated. Musculoskeletal: There is no back pain noted. Extremities are non-tender with full range of motion. There is good capillary refill. There is no peripheral edema or calf tenderness elicited. Neurological: Patient is alert and cooperative. The patient has symmetrical motor strength in all four extremities. Cranial nerves are grossly intact. Deep tendon reflexes are symmetrical and equal in all four extremities. Psychiatric: The patient has an appropriate affect and does not exhibit any anxiety or depression. Not verbalizing well. Triage Information Reviewed: Yes Vital Signs On Initial Exam: Initial Vitals Temp Pulse Resp BP Pulse Ox 96.7 F 94 19 155/76 95 10/02/16 00:16 10/02/16 00:16 10/02/16 00:16 10/02/16 00:16 10/02/16 00:16 Vital Signs Reviewed: Yes Diagnostics - Vital Signs Vital Signs Temp Pulse Resp BP Pulse Ox 10/02/16 00:16 96.7 F 94 19 155/76 95 - Laboratory Lab Results: Lab Results 10/02/16 10/02/16 10/02/16 Range/Units 00:24 00:24 00:24 WBC 7.7 (3.5-10.8) 10^3/ul RBC 3.38 L (4.0-5.4) 10^6/ul Hgb 10.4 L (12.0-16.0) g/dl Hct 31 L (35-47) % MCV 91 (80-97) fL MCH 31 (27-31) pg MCHC 34 (31-36) g/dl RDW 20 H (10.5-15) % Plt Count 246 (150-450) 10^3/ul MPV 8 (7.4-10.4) um3 Neut % (Auto) 84.7 H (38-83) % Lymph % (Auto) 5.3 L (25-47) % [place] % (Auto) 4.5 (1-9) % Eos % (Auto) 3.6 (0-6) % Baso % (Auto) 1.9 (0-2) % Absolute Neuts (auto) 6.5 (1.5-7.7) 10^3/ul Absolute Lymphs (auto) 0.4 L (1.0-4.8) 10^3/ul Absolute Monos (auto) 0.3 (0-0.8) 10^3/ul Absolute Eos (auto) 0.3 (0-0.6) 10^3/ul Absolute Basos (auto) 0.1 (0-0.2) 10^3/ul Absolute Nucleated RBC 0 10^3/ul Nucleated RBC % 0.1 INR (Anticoag Therapy) (0.89-1.11) Sodium 136 (133-145) mmol/L Potassium 4.1 (3.5-5.0) mmol/L Chloride 102 (101-111) mmol/L Carbon Dioxide 25 (22-32) mmol/L Anion Gap 9 (2-11) mmol/L BUN 71 H (6-24) mg/dL Creatinine 3.54 H (0.51-0.95) mg/dL Est GFR ( Amer) 16.6 (>60) Est GFR (Non-Af Amer) 12.9 (>60) BUN/Creatinine Ratio 20.1 H (8-20) Glucose 258 H (70-100) mg/dL Lactic Acid 1.2 (0.5-2.0) mmol/L Calcium 8.9 (8.6-10.3) mg/dL Total Bilirubin 0.60 (0.2-1.0) mg/dL AST 29 (13-39) U/L ALT 27 (7-52) U/L Alkaline Phosphatase 117 H (34-104) U/L Troponin I 0.09 H* (<0.04) ng/mL B-Natriuretic Peptide ( - 100) pg/mL Total Protein 6.5 (6.4-8.9) g/dL Albumin 3.8 (3.2-5.2) g/dL Globulin 2.7 (2-4) g/dL Albumin/Globulin Ratio 1.4 (1-3) 10/02/16 10/02/16 Range/Units 00:24 00:24 WBC (3.5-10.8) 10^3/ul RBC (4.0-5.4) 10^6/ul Hgb (12.0-16.0) g/dl Hct (35-47) % MCV (80-97) fL MCH (27-31) pg MCHC (31-36) g/dl RDW (10.5-15) % Plt Count (150-450) 10^3/ul MPV (7.4-10.4) um3 Neut % (Auto) (38-83) % Lymph % (Auto) (25-47) % [place] % (Auto) (1-9) % Eos % (Auto) (0-6) % Baso % (Auto) (0-2) % Absolute Neuts (auto) (1.5-7.7) 10^3/ul Absolute Lymphs (auto) (1.0-4.8) 10^3/ul Absolute Monos (auto) (0-0.8) 10^3/ul Absolute Eos (auto) (0-0.6) 10^3/ul Absolute Basos (auto) (0-0.2) 10^3/ul Absolute Nucleated RBC 10^3/ul Nucleated RBC % INR (Anticoag Therapy) 1.02 (0.89-1.11) Sodium (133-145) mmol/L Potassium (3.5-5.0) mmol/L Chloride (101-111) mmol/L Carbon Dioxide (22-32) mmol/L Anion Gap (2-11) mmol/L BUN (6-24) mg/dL Creatinine (0.51-0.95) mg/dL Est GFR ( Amer) (>60) Est GFR (Non-Af Amer) (>60) BUN/Creatinine Ratio (8-20) Glucose (70-100) mg/dL Lactic Acid (0.5-2.0) mmol/L Calcium (8.6-10.3) mg/dL Total Bilirubin (0.2-1.0) mg/dL AST (13-39) U/L ALT (7-52) U/L Alkaline Phosphatase (34-104) U/L Troponin I (<0.04) ng/mL B-Natriuretic Peptide 1677 H ( - 100) pg/mL Total Protein (6.4-8.9) g/dL Albumin (3.2-5.2) g/dL Globulin (2-4) g/dL Albumin/Globulin Ratio (1-3) Result Diagrams: 10/02/16 00:24 10/02/16 00:24 Lab Statement: Any lab studies that have been ordered have been reviewed, and results considered in the medical decision making process. - Radiology CXR Radiology Interpretation Completed By: ED Physician - Increased vascular congestion. Right pleural effusion. Worsening pulmonary edema since last CXR. - EKG 0026 Cardiac Rate: Tachycardia - BPM 100 EKG Rhythm: Sinus Tachycardia EKG Interpretation: No STEMI. Left axis deviation. Course/Dx - Course Assessment/Plan: 66 year old F BIBA to [facility] accompanied by ester with a chief complaint of SOB since earlier today. Patient is moaning and groaning on arrival. She is on 3L nasal cannula. Symptoms aggravated by smoking and alleviated by nothing. Pt reports diaphoresis, and cough. Pt denies fever, chills, and CP. Tobacco abuse disorder. PMHx of DM, CHF, and CAD. An EKG reveals sinus tachycardia and left axis deviation. CXR reveals Increased vascular congestion. Right pleural effusion. Worsening pulmonary edema since last CXR. Consulted Dr. Martinez (hospitalist) who agrees to admit. Patient will be admitted with follow up from Dr. Martinez. Pt is agreeable with this plan. - Diagnoses Differential Diagnosis/HQI/PQRI: Positive: CHF, COPD Exacerbation, LA, Pulmonary Edema, Other - renal failure, ischemic cardiomyopathy Provider Diagnoses: History of ischemic cardiomyopathy, Acute renal failure, Pulmonary edema, Acute dyspnea - Physician Notifications Discussed Care of Patient With: Navin Martinez Time Discussed With Above Provider: 02:00 Instructed by Provider To: Other - Consulted Dr. Martinez (hospitalist) who agrees to admit. - Critical Care Time Critical Care Time: 30-74 min - 30 minutes Discharge - Discharge Plan Condition: Stable Disposition: ADMITTED TO [facility] Referrals: Logan Valdez MD [Primary Care Provider] - The documentation as recorded by the Agata friedman Alfonso accurately reflects the service I personally performed and the decisions made by , Cheikh Kunz MD.
[2016-10-02] MEDS ORDERED: Mouth Piece, Nicotine* 1 EACH CARTRIDGE INH ONE (03:00)
[2016-10-02] MEDS ORDERED: ALPRAZolam TAB* 0.25 MG PO PRN (04:55)
[2016-10-02 05:49] LABS: Hematocrit 27 % (35-47); Mean Corpuscular HGB Conc 33 g/dl (31-36); Mean Corpuscular Hemoglobin 30 pg (27-31); Mean Corpuscular Volume 91 fL (80-97); Mean Platelet Volume 8 um3 (7.4-10.4); Red Blood Count 2.99 10^6/ul (4.0-5.4); Red Cell Distribution Width 20 % (10.5-15); White Blood Count 6.1 10^3/ul (3.5-10.8)
[2016-10-02] MEDS ORDERED: Levothyroxine TAB* 100 MCG TAB PO SCH (06:00)
[2016-10-02 06:03] LABS: BUN/Creatinine Ratio 20.6 (8-20); Calcium 8.9 mg/dL (8.6-10.3); EGFR African American 17.1 (>60); EGFR Non-African American 13.3 (>60); Potassium 3.8 mmol/L (3.5-5.0)
[2016-10-02] MEDS: Albuterol 2.5 MG/3 ML NEB.SOL* (0.083%) INH SCH ×2 (07:25→12:58)
[2016-10-02 07:30] LABS: Troponin I 0.08 ng/mL (<0.04)
[2016-10-02] MEDS: Insulin LISPRO* 1 UNITS UNIT SUBCUT SCH ×2 (08:00→13:05)
[2016-10-02] MEDS: Bumetanide IV* 0.25 MG/ML 4 ML VIAL SLOW PUSH SCH ×2 (08:00→13:03)
--- NOTE | 2016-10-02 08:06 | RAD ---
Indication: Shortness of breath, cough. Question CHF, pneumonia. Comparison: September 06, 2016 Technique: Upright AP 2351 hours Report: Cardiomegaly, prominent ill-defined central pulmonary vasculature, mild perihilar opacities, diffuse prominence of interstitial markings, small RIGHT and trace LEFT pleural effusions. Negative for pneumothorax. IMPRESSION: Pulmonary vascular congestion and interstitial edema. Similar magnitude to the September 06, 2016 exam.
[2016-10-02] MEDS ORDERED: Carvedilol TAB* 6.25 MG PO SCH (09:00)
[2016-10-02] MEDS ORDERED: Mometasone/Formoter 200/5 MDI INH SCH (09:00)
[2016-10-02] MEDS ORDERED: amLODIPine TAB* 5 MG PO SCH (09:00)
[2016-10-02] MEDS ORDERED: glipiZIDE TAB* 5 MG PO SCH (09:00)
[2016-10-02] MEDS ORDERED: Isosorbide Mononitrate ER TAB* 30 MG PO SCH ×2 (09:00→13:54)
[2016-10-02] MEDS ORDERED: Metoprolol Tartrate TAB* 25 MG PO SCH (09:00)
[2016-10-02] MEDS ORDERED: Docusate CAP* 100 MG PO SCH (09:00)
[2016-10-02] MEDS ORDERED: Tiotropium CAP.INH* CAP.INH/18 MCG INH SCH (09:00)
[2016-10-02] MEDS ORDERED: Lisinopril TAB* 5 MG PO SCH (09:00)
[2016-10-02] MEDS ORDERED: SitaGLIPtin (NF) 25 MG TAB PO SCH (09:00)
[2016-10-02] MEDS ORDERED: Spiriva Inhaler DEVICE* 1 EACH DEVICE INH ONE (09:00)
[2016-10-02] MEDS ORDERED: Aspirin EC Low Dose* 81 MG TAB.EC PO SCH (09:00)
[2016-10-02] MEDS ORDERED: Omeprazole CAP* 20 MG PO SCH (09:00)
[2016-10-02] MEDS: hydrALAZINE TAB* 25 MG PO SCH ×2 (12:13→14:21)
--- NOTE | 2016-10-02 13:50 | PN ---
Subjective Date of Service: 10/02/16 Interval History: Ms. Santana states that she is feeling much better. She has been able to lay flat in bed to sleep. She has been ambulating in her room without significant dyspnea. She denies chest pain, nausea or abdominal pain. She is eager for discharge to home. Objective Active Medications: Acetaminophen (Tylenol Tab*) 650 mg PO Q6H PRN Albuterol (Ventolin 2.5 Mg/3 Ml Neb.Casandra*) 2.5 mg INH Q2H PRN Albuterol (Ventolin 2.5 Mg/3 Ml Neb.Casandra*) 2.5 mg INH [id number] AWAKE BOY Alprazolam (Xanax Tab*) 0.25 mg PO DAILY PRN Amlodipine Besylate (Norvasc Tab*) 5 mg PO DAILY BOY Aspirin (Aspirin Ec Low Dose*) 81 mg PO DAILY BOY Atorvastatin Calcium (Lipitor*) 40 mg PO 1700 BOY Bumetanide (Bumex*) 1 mg SLOW PUSH 0800,1200 BOY Carvedilol (Coreg Tab*) 12.5 mg PO BID BOY Docusate Sodium (Colace Cap*) 200 mg PO BID BOY Glipizide (Glucotrol Tab*) 10 mg PO BID BOY Heparin Sodium (Porcine) (Heparin Vial(*)) 5,000 units SUBCUT Q8HR BOY Hydralazine HCl (Apresoline Tab*) 25 mg PO TID [facility] Insulin Glargine (Lantus(*)) 20 units SUBCUT BEDTIME BOY Insulin Human Lispro (Humalog*) 0 units SUBCUT ACHS BOY Isosorbide Mononitrate (Imdur Er Tab*) 30 mg PO DAILY [facility] Levothyroxine Sodium (Synthroid Tab*) 100 mcg PO 0600 BOY Lisinopril (Prinivil Tab*) 2.5 mg PO DAILY [facility] Melatonin (Melatonin (Nf)) 3 mg PO BEDTIME PRN; Protocol Metoprolol Tartrate (Lopressor Tab*) 25 mg PO BID BOY Mometasone Furoate/Formoterol Fumar (Dulera 200/5 Mdi*) 2 puff INH BID BOY Nicotine (Nicotine Inhaler*) 10 mg INH Q2H PRN Omeprazole (Prilosec Cap*) 20 mg PO DAILY BOY Ondansetron HCl (Zofran Inj*) 4 mg IV Q6H PRN Paroxetine HCl (Paxil Tab*) 30 mg PO BEDTIME BOY Sitagliptin Phosphate (Januvia (Nf)) 50 mg PO DAILY BOY Tiotropium Coleman (Spiriva Cap.Inh*) 1 cap INH DAILY BOY Vital Signs 10/02/16 10/02/16 10/02/16 02:15 02:30 02:37 Temperature Pulse Rate 76 73 Respiratory 18 18 17 Rate Blood Pressure 107/53 104/49 110/54 (mmHg) O2 Sat by Pulse 96 95 Oximetry 10/02/16 10/02/16 10/02/16 02:45 02:56 03:00 Temperature 97.4 F Pulse Rate 83 77 Respiratory 16 18 26 Rate Blood Pressure 113/70 116/54 118/57 (mmHg) O2 Sat by Pulse 97 96 Oximetry 10/02/16 10/02/16 10/02/16 03:15 03:59 07:16 Temperature 97.4 F 97.7 F Pulse Rate 74 83 73 Respiratory 19 18 20 Rate Blood Pressure 108/50 116/54 101/51 (mmHg) O2 Sat by Pulse 96 97 96 Oximetry 10/02/16 10/02/16 10/02/16 07:25 08:00 09:24 Temperature Pulse Rate 88 Respiratory 16 20 Rate Blood Pressure 108/60 (mmHg) O2 Sat by Pulse 95 Oximetry 10/02/16 10/02/16 10/02/16 12:05 12:11 12:27 Temperature Pulse Rate 65 Respiratory 18 Rate Blood Pressure 91/47 88/48 95/45 (mmHg) O2 Sat by Pulse 93 Oximetry 10/02/16 13:01 Temperature Pulse Rate 84 Respiratory Rate Blood Pressure (mmHg) O2 Sat by Pulse 91 Oximetry Oxygen Devices in Use Now: None Appearance: Female lying in bed in NAD Eyes: No Scleral Icterus Ears/Nose/Mouth/Throat: Mucous Membranes Moist Neck: Trachea Midline Respiratory: Symmetrical Chest Expansion and Respiratory Effort, Clear to Auscultation Cardiovascular: NL Sounds; No Murmurs; No JVD, No Edema Abdominal: NL Sounds; No Tenderness; No Distention Lymphatic: No Cervical Adenopathy Extremities: No Edema Skin: No Rash or Ulcers Neurological: Alert and Oriented x 3, NL Muscle Strength and Tone Nutrition: Taking PO's Result Diagrams: 10/02/16 05:31 08/05/17 05:31 Additional Lab and Data: Lab Results 10/02/16 10/02/16 10/02/16 Range/Units 00:24 00:24 00:24 WBC 7.7 (3.5-10.8) 10^3/ul RBC 3.38 L (4.0-5.4) 10^6/ul Hgb 10.4 L (12.0-16.0) g/dl Hct 31 L (35-47) % MCV 91 (80-97) fL MCH 31 (27-31) pg MCHC 34 (31-36) g/dl RDW 20 H (10.5-15) % Plt Count 246 (150-450) 10^3/ul MPV 8 (7.4-10.4) um3 Neut % (Auto) 84.7 H (38-83) % Lymph % (Auto) 5.3 L (25-47) % Elliott % (Auto) 4.5 (1-9) % Eos % (Auto) 3.6 (0-6) % Baso % (Auto) 1.9 (0-2) % Absolute Neuts (auto) 6.5 (1.5-7.7) 10^3/ul Absolute Lymphs (auto) 0.4 L (1.0-4.8) 10^3/ul Absolute Monos (auto) 0.3 (0-0.8) 10^3/ul Absolute Eos (auto) 0.3 (0-0.6) 10^3/ul Absolute Basos (auto) 0.1 (0-0.2) 10^3/ul Absolute Nucleated RBC 0 10^3/ul Nucleated RBC % 0.1 INR (Anticoag Therapy) (0.89-1.11) Sodium 136 (133-145) mmol/L Potassium 4.1 (3.5-5.0) mmol/L Chloride 102 (101-111) mmol/L Carbon Dioxide 25 (22-32) mmol/L Anion Gap 9 (2-11) mmol/L BUN 71 H (6-24) mg/dL Creatinine 3.54 H (0.51-0.95) mg/dL Est GFR ( Amer) 16.6 (>60) Est GFR (Non-Af Amer) 12.9 (>60) BUN/Creatinine Ratio 20.1 H (8-20) Glucose 258 H (70-100) mg/dL Lactic Acid 1.2 (0.5-2.0) mmol/L Calcium 8.9 (8.6-10.3) mg/dL Total Bilirubin 0.60 (0.2-1.0) mg/dL AST 29 (13-39) U/L ALT 27 (7-52) U/L Alkaline Phosphatase 117 H (34-104) U/L Troponin I 0.09 H* (<0.04) ng/mL B-Natriuretic Peptide ( - 100) pg/mL Total Protein 6.5 (6.4-8.9) g/dL Albumin 3.8 (3.2-5.2) g/dL Globulin 2.7 (2-4) g/dL Albumin/Globulin Ratio 1.4 (1-3) 10/02/16 10/02/16 Range/Units 00:24 00:24 WBC (3.5-10.8) 10^3/ul RBC (4.0-5.4) 10^6/ul Hgb (12.0-16.0) g/dl Hct (35-47) % MCV (80-97) fL MCH (27-31) pg MCHC (31-36) g/dl RDW (10.5-15) % Plt Count (150-450) 10^3/ul MPV (7.4-10.4) um3 Neut % (Auto) (38-83) % Lymph % (Auto) (25-47) % Elliott % (Auto) (1-9) % Eos % (Auto) (0-6) % Baso % (Auto) (0-2) % Absolute Neuts (auto) (1.5-7.7) 10^3/ul Absolute Lymphs (auto) (1.0-4.8) 10^3/ul Absolute Monos (auto) (0-0.8) 10^3/ul Absolute Eos (auto) (0-0.6) 10^3/ul Absolute Basos (auto) (0-0.2) 10^3/ul Absolute Nucleated RBC 10^3/ul Nucleated RBC % INR (Anticoag Therapy) 1.02 (0.89-1.11) Sodium (133-145) mmol/L Potassium (3.5-5.0) mmol/L Chloride (101-111) mmol/L Carbon Dioxide (22-32) mmol/L Anion Gap (2-11) mmol/L BUN (6-24) mg/dL Creatinine (0.51-0.95) mg/dL Est GFR ( Amer) (>60) Est GFR (Non-Af Amer) (>60) BUN/Creatinine Ratio (8-20) Glucose (70-100) mg/dL Lactic Acid (0.5-2.0) mmol/L Calcium (8.6-10.3) mg/dL Total Bilirubin (0.2-1.0) mg/dL AST (13-39) U/L ALT (7-52) U/L Alkaline Phosphatase (34-104) U/L Troponin I (<0.04) ng/mL B-Natriuretic Peptide 1677 H ( - 100) pg/mL Total Protein (6.4-8.9) g/dL Albumin (3.2-5.2) g/dL Globulin (2-4) g/dL Albumin/Globulin Ratio (1-3) Assess/Plan/Problems-Billing Assessment: Ms. Santana is a 66 yo female with PMH of cardiomyopathy with EF 25-30%, CKD Stage , and DM who was admitted on 10/01/16 with CHF exacerbation. - Patient Problems (1) Acute systolic CHF (congestive heart failure) Comment: - Acute on chronic with EF 25-30%. - Patient symptoms have resolved after essentially one dose of bumex in ED. Plan to go back on bumex at increased BID dosing at home until follow up with care management assistant in [place] on Tuesday. - Contiue coreg, hydralazine and imdur. (2) Elevated troponin Comment: - Trop peaked at 0.09. EKG without evidence of ischemia. - Suspect demand ischemia from CHF exacerbation. (3) Chronic kidney disease, stage IV (severe) Comment: - Creatinine slightly up from baseline. - Continue to follow closely in the setting of being on bumex. (4) Type II diabetes mellitus Comment: - Hypoglycemic to 46 this AM, resolved. - Resume home meds. (5) CAD (coronary artery disease) Comment: - Asymptomatic elevation in trop, suspect demand ischemia. - Continue carvedilol, atorvastatin, and aspirin. (6) Depression Comment: - With anxiety. - Continue paxil and alprazolam. (7) Hyperlipidemia Comment: - Continue atorvastatin. (8) Hypertension Comment: - SBP 80-90s. - Continue coreg, hydralazine and imdur with hold parameters. (9) Hypothyroid Comment: - Continue current dose of synthroid. (10) DVT prophylaxis Comment: - SQ heparin. Status and Disposition: Inpatient with expected LOS > 2 days. Discharge to home.
[2016-10-02] MEDS ORDERED: hydrALAZINE TAB* 25 MG PO SCH (13:53)
[2016-10-02 16:09] VITALS: BP 104/47
[2016-10-02] MEDS ORDERED: Atorvastatin* 40 MG TAB PO SCH (17:00)
[2016-10-02] MEDS ORDERED: Insulin GLARGINE(*) 1 UNITS UNIT SUBCUT SCH (21:00)
[2016-10-02] MEDS ORDERED: PARoxetine HCL TAB* 10 MG PO SCH (21:00)
--- NOTE | 2016-10-02 23:04 | DS ---
CC: Dr. Valdez * [facility] MEDICINE DISCHARGE SUMMARY: DATE OF ADMISSION: 10/02/16 DATE OF DISCHARGE: 10/02/16 PRIMARY CARE PHYSICIAN: Dr. Valdez. ATTENDING PHYSICIAN: Dr. Faviola Hagan * (dictation provided by Nancy Valenzuela NP ) PRIMARY DIAGNOSIS: Acute on chronic systolic congestive heart failure exacerbation. SECONDARY DIAGNOSES: 1. Coronary artery disease with myocardial infarction. 2. Ischemic cardiomyopathy with an EF of 25% to 30%. 3. Chronic systolic heart failure. 4. Melanoma. 5. Peripheral arterial occlusive disease. 6. Hyperlipidemia. 7. Duodenal lymphoma with recurrent bleeding. 8. Type 2 diabetes. 9. Chronic kidney disease stage 4. 10. Hypothyroidism. 11. Gastroesophageal reflux disease. 12. Depression. MEDICATIONS AT THE TIME OF DISCHARGE: 1. Bumex 2 mg p.o. b.i.d. 2. Levothyroxine 100 mcg p.o. daily. 3. Paroxetine 30 mg p.o. at bedtime. 4. Glipizide 10 mg p.o. b.i.d. 5. Carvedilol 12.5 mg p.o. b.i.d. 6. Nitroglycerin 0.4 mg sublingually as needed. 7. Sitagliptin 50 mg p.o. daily. 8. Isosorbide ER 30 mg p.o. daily. 9. Hydralazine 25 mg p.o. t.i.d. 10. Atorvastatin 40 mg p.o. daily. 11. Alprazolam 0.25 mg p.o. daily p.r.n. 12. Aspirin 81 mg p.o. daily. 13. Cholecalciferol 2000 units p.o. daily. 14. Ferrous sulfate 325 mg p.o. daily. 15. Lantus 20 units subcutaneously at bedtime. 16. Lisinopril 2.5 mg p.o. daily. 17. Metoprolol tartrate 25 mg p.o. b.i.d. 18. Pantoprazole 40 mg p.o. daily. 19. Amlodipine 5 mg p.o. daily. HOSPITAL COURSE: Ms. 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 Please see the dictated H and P from Dr. Navin Martinez for complete details. In brief, the patient has has ongoing issues with heart failure. She had followed with her primary care who recommended she increase her bumex to twice daily dosing for two days. She did so and felt slightly better. She then saw her curtain hemmer automatic who had separately recommended increasing her bumetanide again. However, she continued to feel quite short of breath and therefore came to the emergency room for evaluation where she was thought to be in acute on chronic systolic congestive heart failure exacerbation. She did respond well to IV Bumex in the ED. Ms. Santana states she is feeling 100% better with no dyspnea at rest and minimal dyspnea with exertion. She also has decreased swelling to her legs. She has been ambulating in her room without difficulty. She was able to sleep well through the night. Her labs are unremarkable. Hemoglobin is at her baseline, though she does have a chronic anemia. Her BUN and creatinine are slightly elevated, but essentially near her baseline. Her BNP was quite elevated to 1677. Her troponin was elevated to 0.09, but this was thought to be secondary to demand ischemia in the setting of heart failure. Ms. Santana is feeling much better today. I believe that she simply did not have enough time on her oral Bumex to make significant enough difference in her symptoms which precipitated her presentation to the ED. She is looking much better after two doses of IV Bumex. Plans will be for discharge to home today. Patient has been encouraged to continue a low salt diet and check her weight daily. DISPOSITION: Home. DIET: Low-fat, low-salt, consistent carbohydrate. ACTIVITY: As tolerated. FOLLOWUP PLANS: Please follow up with the curtain hemmer automatic. The patient has a scheduled appointment for Tuesday of this coming week. TIME SPENT: Approximately 60 minutes were spent on the discharge of this patient, more than half the time spent with the patient at the bedside reviewing the events leading up to this hospitalization, performing the physical examination, and reviewing the plan of care. NANCY VALENZUELA NP [id number]/[facility] #: [id number] CEE
[2016-10-03] MEDS ORDERED: Heparin VIAL(*) 5000 UNITS/ML VIAL (FIVE THOUSAND) SUBCUT SCH (06:00)
== END 2016-10-02 16:03 | disposition home or self-care (01) ==
LOC: ED 00:12 → INTOOBSV 02:03 → MEDTELE 02:03
PROVIDERS: ADMIT Hospitalist; ATTEND Internal Medicine
DX: I50.23 Acute on chronic systolic (congestive) heart failure (principal); I25.10 Atherosclerotic heart disease of native coronary artery without angina pectoris; I25.2 Old myocardial infarction; I42.9 Cardiomyopathy, unspecified; I73.9 Peripheral vascular disease, unspecified; E78.5 Hyperlipidemia, unspecified; E11.9 Type 2 diabetes mellitus without complications; C43.9 Malignant melanoma of skin, unspecified; C85.93 Non-Hodgkin lymphoma, unspecified, intra-abdominal lymph nodes; N18.4 Chronic kidney disease, stage 4 (severe); E03.9 Hypothyroidism, unspecified; K21.9 Gastro-esophageal reflux disease without esophagitis; F32.9 Major depressive disorder, single episode, unspecified; Z79.82 Long term (current) use of aspirin; Z79.4 Long term (current) use of insulin; Z88.0 Allergy status to penicillin; Z88.2 Allergy status to sulfonamides
CPT/HCPCS: 36415; 71010; 80048; 80053; 83605; 83880; 84484; 85025; 85610; 87040; 93005; 94640; 94760; 99284; A9270-GY; G0378

== ENCOUNTER 2017-01-20 16:42 | Observation (INO) | payer MEDICARE, OTHER ==
[2017-01-20 17:14] LABS: Hematocrit 31 % (35-47); Hemoglobin 10.7 g/dl (12.0-16.0); Mean Corpuscular HGB Conc 35 g/dl (31-36); Mean Corpuscular Hemoglobin 32 pg (27-31); Mean Corpuscular Volume 92 fL (80-97); Mean Platelet Volume 8 um3 (7.4-10.4); Red Blood Count 3.36 10^6/ul (4.0-5.4); Red Cell Distribution Width 14 % (10.5-15); White Blood Count 6.8 10^3/ul (3.5-10.8)
[2017-01-20 17:29] LABS: Albumin 3.9 g/dL (3.2-5.2); BUN/Creatinine Ratio 17.6 (8-20); C Reactive Protein 3.55 mg/L (< 5.00); Calcium 8.5 mg/dL (8.6-10.3); EGFR African American 11.8 (>60); EGFR Non-African American 9.2 (>60); Globulin 2.6 g/dL (2-4); Total Bilirubin 0.8 mg/dL (0.2-1.0); Total Protein 6.5 g/dL (6.4-8.9)
[2017-01-20 17:31] LABS: Troponin I 0.03 ng/mL (<0.04)
[2017-01-20] MEDS ORDERED: Furosemide IV* 10 MG/ML 2 ML VIAL (20 MG) IV SLOW PU ONE (17:38)
--- NOTE | 2017-01-20 17:47 | RAD ---
INDICATION: Shortness of breath. COMPARISON: Chest x-ray dated October 01, 2016 TECHNIQUE: PA and lateral views of the chest were obtained. FINDINGS: There has been interval placement of a left upper chest cardiac pacemaker with one lead overlying the heart. There is mild cardiomegaly similar appearance to the previous chest x-ray. Again seen is calcified atherosclerosis overlying the arch of the aorta. The pulmonary vasculature appears mildly indistinct and engorged. Aeration is improved when compared to the most recent chest x-ray. There is slight costophrenic angle blunting seen on the lateral view chest x-ray. The diaphragm are well-defined. Visualized bones are normal for the patient's age. There is no radiographic evidence of free air beneath the diaphragm IMPRESSION: IN THE CORRECT CLINICAL SETTING CHEST X-RAY FINDINGS ARE MOST CONSISTENT WITH MILD CARDIOGENIC PULMONARY EDEMA POSSIBLY WITH TRACE PLEURAL EFFUSIONS. THE AERATION IS IMPROVED WHEN COMPARED TO THE OCTOBER 01, 2016 CHEST X-RAY.
[2017-01-20] MEDS ORDERED: Albuterol HFA INHALER* 8 gm MDI INH PRN (18:43)
[2017-01-20 18:50] LABS: PCO2 Arterial 38 mmHg (35-45)
[2017-01-20] MEDS ORDERED: Dextrose 50% Syringe 50 ML* 25 GM/50 ML SYRINGE IV PUSH PRN (19:20)
[2017-01-20] MEDS ORDERED: Nicotine Inhaler* 10 MG AMP INH PRN (19:21)
[2017-01-20] MEDS ORDERED: Acetaminophen TAB* 325 MG PO PRN (19:23)
[2017-01-20] MEDS ORDERED: CMC: Pantoprazole TAB (NF) 40 MG TAB PO SCH (21:00)
[2017-01-20] MEDS ORDERED: PARoxetine HCL TAB* 10 MG PO SCH (21:00)
[2017-01-20] MEDS ORDERED: Insulin GLARGINE(*) 1 UNITS UNIT SUBCUT SCH (21:00)
--- NOTE | 2017-01-20 21:08 | HP ---
CC: Dr. Logan Valdez * HISTORY AND PHYSICAL: DATE OF ADMISSION: 01/20/17 PRIMARY CARE PROVIDER: Dr. Logan Valdez. ATTENDING PHYSICIAN: Shree Stinson MD * (dictated by Sandra Solano NP). CHIEF COMPLAINT: Shortness of breath and left ear pain. HISTORY OF PRESENT ILLNESS: Ms. Santana is a 66-year-old female with a past medical history significant for ischemic cardiomyopathy with an ejection fraction of 25% to 30% and recurrent decompensated chronic systolic heart failure, chronic kidney disease, who presented to the emergency room with sudden onset of shortness of breath around 4 p.m. today. The patient states that she has generally not been feeling well throughout the day. She developed a left ear pain and then developed shortness of breath. The patient states that when she develops the shortness of breath, she often has an associated left ear pain. The patient reports following with her primary care provider, who has recently started her on metolazone in addition to her Bumex. The patient states that she has been following a low sodium diet. She reports eating a homemade stuffing, corn, mashed potatoes, and turkey today. The patient states that she took a sublingual nitro to see if that helped with her ear pain and it did not. She presented to the emergency room for further evaluation of her symptoms. While in the emergency room, the patient states that initially her left ear pain got worse, but her ear pain and her shortness of breath resolved without intervention while in the emergency room. Upon initial arrival to the emergency room, the patient was noted to have an O2 sat of 91% on room air. She was then noted to be 97% on room air. She was noted to be slightly tachycardic when compared to her previous vitals. The patient had labs that were significant for a BNP of 1284. She was noted to have an elevated BUN of 84 , creatinine of 4.77. Her other labs were fairly unremarkable. The patient denies any fever, chills, chest pain, cough. She reports that her shortness of breath is resolved at this time. She denies any nausea, vomiting, diarrhea, lower extremity edema. She reports anxiety when she gets the ear pain. The patient received 20 mg of IV Lasix and the hospitalists were asked to evaluate the patient for admission. PAST MEDICAL HISTORY: 1. Coronary artery disease, status post myocardial infarction. 2. Ischemic cardiomyopathy with EF of 25% to 30%. 3. Chronic systolic heart failure. 4. Melanoma. 5. Hyperlipidemia. 6. Diabetes. 7. Chronic kidney disease, stage 4. 8. GERD. 9. Depression. 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 11. Peripheral artery disease. PAST SURGICAL HISTORY: 1. Status post section x2. 2. Status post cholecystectomy. 3. Status post ovarian cyst excision. 4. Status post cardiac stenting x2. 5. Status post excision of melanoma. 6. Status post tonsillectomy. 7. Status post appendectomy. 8. Status post ICD and pacer placement. HOME MEDICATIONS: Include: 1. Hydralazine 25 mg oral 3 times daily. 2. Glipizide 10 mg oral twice daily. 3. Amlodipine 5 mg oral daily. 4. Januvia 50 mg oral daily. 5. Protonix 40 mg oral twice daily. 6. Paxil 30 mg oral daily at bedtime. 7. Nitroglycerin 0.4 mg sublingual every 5 minutes as needed for chest pain. 8. Levothyroxine 100 mcg oral daily. 9. Isosorbide mononitrate 30 mg oral daily. 10. Lantus 20 units subcutaneous daily at bedtime. 11. Carvedilol 12.5 mg oral twice daily. 12. Bumex 2 mg oral twice daily. 13. Atorvastatin 40 mg daily. 14. Aspirin 81 mg oral daily. 15. Albuterol HFA inhaler 1 to 2 puffs inhalation every 4 hours as needed for shortness of breath or wheeze. 16. Metolazone 5 mg oral daily. 17. Pletal 100 mg oral twice daily 30 minutes prior to breakfast and dinner. ALLERGIES: PENICILLIN-V and SULFA. FAMILY HISTORY: The patient's mother and father had coronary artery disease in their 80s. She has a brother with a history of mitral valve prolapse. The patient's mother has a history of diabetes mellitus. She denies any family history of cancer. SOCIAL HISTORY: The patient smokes half a pack a day. She has an approximately 45-year smoking history. She denies any alcohol or recreational drug use. 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 Her , Jerome, would be her surrogate decision maker in the event she is unable to make decisions for herself. REVIEW OF SYSTEMS: I performed a 14-point review of systems. All the pertinent positives and negatives mentioned in the history of present illness. The remaining review of systems is negative. PHYSICAL EXAMINATION GENERAL APPEARANCE: The patient is alert, pleasant, and appears to be in no acute distress. VITAL SIGNS: Temperature 98.0, heart rate 92, respiratory rate 21, O2 sat 97% on room air, blood pressure 105/59. HEENT: Normocephalic, atraumatic. Pupils are equal and reactive to light. Extraocular movements are intact. Bilateral tympanic membranes are pearly metzger. NECK: Supple. RESPIRATORY: There is no accessory muscle use and lungs are clear to auscultation bilaterally, although she does have a few crackles in the bases. CARDIOVASCULAR: Regular rate and rhythm. S1 and S2 present. There are no murmurs, rubs, or gallops heard. ABDOMEN: Soft, nontender, nondistended. There are bowel sounds present x4. EXTREMITIES: There is no lower extremity edema. DP and PT pulses are 2+ and symmetric. MUSCULOSKELETAL: There is no clubbing or cyanosis noted. The patient exhibits good strength in all extremities. NEUROLOGICAL: The patient is alert and oriented x4. Cranial nerves II through XII are grossly intact. PSYCHOLOGICAL: The patient is calm and cooperative. SKIN: There are no rashes or abnormalities seen. DIAGNOSTIC STUDIES/LABORATORY DATA: Sodium 134, potassium 4.0, chloride 95, CO2 is 28, BUN 84, creatinine 4.77, glucose 411. White blood cell count 6.8, hemoglobin 10.7, hematocrit 31, and platelet count 208,000. BNP 1284. Troponin 0.03. EKG shows a sinus tachycardia, rate of 100. There are no acute signs of ischemia. This EKG is similar to previous EKG from 10/02/16. Chest x-ray from today. Radiologist impression: In the correct clinical stetting, chest x-ray findings are most consistent with mild cardiogenic pulmonary edema, possibly with trace pleural effusions. The aeration is improved when compared to 10/01/16 chest x-ray. IMPRESSION: Ms. Santana is a 66-year-old female with a past medical history significant for coronary artery disease, ischemic cardiomyopathy with an EF of 25% to 30%, chronic systolic heart failure, diabetes and chronic kidney disease stage 4, who presents to the emergency room with complaints of shortness of breath and left ear pain. She will be admitted as an observation for acute on chronic systolic heart failure. ASSESSMENT/PLAN: 1. Acute on chronic systolic heart failure. The patient received 20 mg of IV Lasix while in the emergency room. We will continue her on her home metolazone and Bumex. She will have strict I's and O's, daily weights. Supplemental oxygen as needed. She will be on a low-sodium diet. We will follow her BUN and creatinine closely as they are already elevated and cautiously give her extra diuretics if needed. If the patient continues to be tachycardic and complained of shortness of breath, we will consider getting a V/Q scan. She is unable to get a CTA of her chest due to her renal insufficiency. 2. Elevate troponin. The patient appears to be at her baseline. She will be monitored on telemetry, continued on aspirin. 3. Coronary artery disease and a history of myocardial infarction. The patient will be continued on aspirin and isosorbide. 4. Hypertension. The patient will be continued on her home carvedilol, amlodipine and hydralazine. 5. Ischemic cardiomyopathy with last known EF of 25% to 30%. The patient will be continued on her home carvedilol. 6. History of peripheral artery disease and hyperlipidemia. The patient will be continued on atorvastatin and Pletal. 7. Diabetes mellitus. The patient will be on a consistent carbohydrate diet. We will hold her glipizide and Januvia. She will be continued on her home Lantus and placed on a lispro sliding scale. Her last hemoglobin A1c was 7.1 in August 2016. 8. Chronic kidney disease stage 4. We will avoid nephrotoxic agents and recheck in the morning. 9. Hypothyroidism. The patient will be continued on home levothyroxine. Her last TSH was 0.54 on 07/19/16. 10. Gastroesophageal reflux disease. The patient will be continued on her home pantoprazole. 11. Depression. The patient will be continued on her home paroxetine. 12. Tobacco abuse. We will provide Nicotine replacement and the patient has been encouraged to stop smoking. 13. Fluids, electrolytes, and nutrition: The patient will be on a low-sodium consistent carbohydrate diet. 14. Code status. Full code. 15. DVT prophylaxis. The patient is at high risk and will be placed on subcu heparin. 16. Disposition. Observation. TIME SPENT: Time for this admission was approximately 60 minutes, greater than half of that was spent with the patient and discussing medications, past medical history and the events leading up to her arrival today and performing a physical examination. Case has been reviewed with the attending, Dr. Stinson, who agrees with the plan of care. Reviewed by PAULETTE HOOVER 01/28/17 1124 [id number]/[facility] #: [id number]
[2017-01-20] MEDS: Cilostazol TAB* 100 MG PO SCH (22:38)
[2017-01-20] MEDS: Heparin VIAL(*) 5000 UNITS/ML VIAL (FIVE THOUSAND) SUBCUT SCH (22:38)
[2017-01-20] MEDS: Bumetanide TAB* 2 MG PO SCH (22:39)
[2017-01-21] MEDS: hydrALAZINE TAB* 25 MG PO SCH ×2 (00:50→09:49)
[2017-01-21] MEDS: Carvedilol TAB* 25 MG PO SCH ×2 (00:50→09:49)
[2017-01-21] MEDS: Heparin VIAL(*) 5000 UNITS/ML VIAL (FIVE THOUSAND) SUBCUT SCH (05:52)
[2017-01-21] MEDS ORDERED: Levothyroxine TAB* 100 MCG TAB PO SCH (06:00)
[2017-01-21 06:27] LABS: BUN/Creatinine Ratio 18.9 (8-20); EGFR African American 12.3 (>60); EGFR Non-African American 9.6 (>60); Potassium 3.7 mmol/L (3.5-5.0)
[2017-01-21] MEDS ORDERED: Insulin LISPRO* 1 UNITS UNIT SUBCUT SCH (07:30)
[2017-01-21] MEDS ORDERED: Metolazone TAB* 5 MG PO SCH (08:30)
--- NOTE | 2017-01-21 08:50 | ED ---
El Bernard Angela, scribed for Roddy Ayala MD on 01/20/17 at 1706 . 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 Pt notes she has felt "funny all day today." She denies chest pain, LE swelling, fever, chills, cough. 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 Pt takes diuretics. PMHx includes CHF. - History of Current Complaint Chief Complaint: EDShortnessOfBreath Time Seen by Provider: 01/20/17 17:00 Hx Obtained From: Patient Onset/Duration: Sudden Onset, Lasting Hours - 1 hour, Still Present Dyspnea At: Rest Associated Signs & Symptoms: Negative - Allergy/Home Medications Allergies/Adverse Reactions: Allergies Allergy/AdvReac Type Severity Reaction Status Date / Time Penicillin V [From Pen-Vee-K] Allergy Severe Rash Verified 10/02/16 00:14 Sulfa Antibiotics Allergy Unknown Verified 10/02/16 00:14 Reaction Details Home Medications: Home Medications Cilostazol TAB* [Pletal TAB*] 100 mg PO BID 01/20/17 [History Confirmed 01/20/17 ] Metolazone TAB* [Zaroxolyn TAB*] 5 mg PO DAILY 01/20/17 [History Confirmed 01/20] PMH/Surg Hx/FS Hx/Imm Hx Endocrine/Hematology History: Reports: Hx Diabetes, Hx Thyroid Disease Cardiovascular History: Reports: Hx Angina, Hx Congestive Heart Failure, Hx Coronary Artery Disease, Hx Hypertension, Other Cardiovascular Problems/ Disorders - Cardiac cath 2011 with 2 stents Denies: Hx Peripheral Vascular Disease Respiratory History: Reports: Hx Pleural Effusion Denies: Hx Chronic Obstructive Pulmonary Disease (COPD), Other Respiratory Problems/Disorders Comment Only: Hx Asthma - ALSO HX OF STOMACH CANCER 2011 GI History: Reports: Hx Gastrointestinal Bleed Denies: Other GI Disorders - CA, meghann, "oozing bleed" History: Reports: Hx Chronic Renal Failure, 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 melanoma- 2000 lymph nodes removed from right groin. -2003 spot removed from top of right foot. - Surgical History Surgery Procedure, Year, and Place: ,cholecystectomy, hysterectomy, melanoma- 2000 lymph nodes reoved right groin, 2003 spot removed from top of right foot. - Immunization History Date of Tetanus Vaccine: Unk Date of Influenza Vaccine: Fall 2013 Infectious Disease History: No Infectious Disease History: Denies: Traveled Outside the [place] in Last 30 Days - Family History Known Family History: Positive: Cardiac Disease - Positive to mother - Social History Alcohol Use: None Substance Use Type: Reports: None Hx Tobacco Use: Yes Smoking Status (MU): Heavy Every Day Tobacco Smoker Type: Cigarettes Length of Time of Smoking/Using Tobacco: About 40yrs Have You Smoked in the Last Year: Yes Review of Systems Constitutional: Other - felt "funny all day" Negative: Fever, Chills Negative: Chest Pain Positive: Shortness Of Breath. Negative: Cough Negative: Edema - in LE Skin: Negative Neurological: Negative All Other Systems Reviewed And Are Negative: Yes Physical Exam - Summary Physical Exam Summary: VITAL SIGNS: Reviewed. GENERAL: Patient is a well-developed and nourished female who is lying comfortable in the stretcher. Patient is not in any acute respiratory distress. HEAD AND FACE: No signs of trauma. No ecchymosis, hematomas or skull depressions. No sinus tenderness. EYES: PERRLA, EOMI x 2, No injected conjunctiva, no nystagmus. EARS: Hearing grossly intact. Ear canals and tympanic membranes are within normal limits. MOUTH: Oropharynx within normal limits. NECK: Supple, trachea is midline, no adenopathy, no JVD, no carotid bruit, no c- spine tenderness, neck with full ROM. CHEST: Symmetric, no tenderness at palpation LUNGS: Crackles in both bases of the lungs. CVS: Regular rate and rhythm, S1 and S2 present, no murmurs or gallops appreciated. ABDOMEN: Soft, non-tender. No signs of distention. No rebound no guarding, and no masses palpated. Bowel sounds are normal. EXTREMITIES: FROM in all major joints, no edema, no cyanosis or clubbing. NEURO: Alert and oriented x 3. No acute neurological deficits. Speech is normal and follows commands. SKIN: Dry and warm Triage Information Reviewed: Yes Vital Signs On Initial Exam: Initial Vitals Temp Pulse Resp BP Pulse Ox 98 F 104 24 126/62 91 01/20/17 16:51 01/20/17 16:51 01/20/17 16:51 01/20/17 16:51 01/20/17 16:51 Vital Signs Reviewed: Yes Diagnostics - Vital Signs Vital Signs Temp Pulse Resp BP Pulse Ox 01/20/17 16:51 98 F 104 24 126/62 91 - Laboratory Result Diagrams: 01/20/17 17:03 01/20/17 17:03 Lab Statement: Any lab studies that have been ordered have been reviewed, and results considered in the medical decision making process. - Radiology Chest XR Xray Interpretation: Positive (See Comments) - IMPRESSION: In the correct clinical setting chest x-ray findings are most consistent with mild cardiogenic pulmonary edema possibly wiht trace pleural effusions. The aeration is improved when compared to the October 01, 2016 chest x-ray. ED physician has reviewed this radiology report and agrees. Radiology Interpretation Completed By: Radiologist - EKG 1722 Cardiac Rate: Tachycardia EKG Rhythm: Sinus Rhythm - at 100 bpm EKG Interpretation: No ST elevation. EKG Comparison: No Significant Change - similar to prior EKG done on 10/02/16. 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 Pt notes she has felt "funny all day today." She denies chest pain, LE swelling, fever, chills, cough. 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 Pt takes diuretics. PMHx includes CHF. Test results show slight anemia, worsening renal failure, BNP of 1284. The pt was given Lasix for the CHF exacerbation. The pt is feeling better. I discussed the pts case with Dr. Stinson, who accepted the pt for admission. Pt is hemodynamically stable, alert and oriented x3. - Diagnoses Provider Diagnoses: CHF exacerbation - Physician Notifications Discussed Care of Patient With: Shree Stinson Time Discussed With Above Provider: 17:39 Instructed by Provider To: Other - I discussed the pt's case with Dr. Stinson, who has agreed to admit the pt. Discharge - Discharge Plan Condition: Stable Disposition: ADMITTED TO [facility] Referrals: José Miguel HERNANDEZ,Logan Lagunas [Primary Care Provider] - The documentation as recorded by the El friedman Angela accurately reflects the service I personally performed and the decisions made by me, Roddy Ayala MD.
[2017-01-21] MEDS ORDERED: Aspirin EC Low Dose* 81 MG TAB.EC PO SCH (09:00)
[2017-01-21] MEDS ORDERED: Isosorbide Mononitrate ER TAB* 30 MG PO SCH (09:00)
[2017-01-21] MEDS ORDERED: Influenza VAC *QUAD* 2017-18* 0.5 ML SYRINGE IM ONE (09:00)
[2017-01-21] MEDS ORDERED: amLODIPine TAB* 5 MG PO SCH (09:00)
[2017-01-21 09:25] VITALS: BP 94/47
[2017-01-21] MEDS: Bumetanide TAB* 2 MG PO SCH (09:47)
[2017-01-21] MEDS: Cilostazol TAB* 100 MG PO SCH (09:49)
[2017-01-21] MEDS ORDERED: Atorvastatin* 40 MG TAB PO SCH (17:00)
--- NOTE | 2017-01-21 19:44 | DCNOTE ---
Subjective Date of Service: 01/21/17 Interval History: Called by nursing staff, Amaury RN that patient wishes to be discharged immediately. She called her ride and refuses to stay. Patient was not seen by me or any other provider today. Admission notes state exacerbation of CHF. Explained to nurse I would be there to see her before she wanted to leave at 12: 30 and if she was feeling well and stable I may be able to DC her. Nurse called back to say she took out her IV and left at 11:50 am. Objective Vital Signs 01/20/17 01/20/17 01/21/17 20:17 22:37 00:11 Temperature 97.9 F 97.5 F 97.5 F Pulse Rate 86 79 83 Respiratory 18 17 16 Rate Blood Pressure 105/51 103/55 97/51 (mmHg) O2 Sat by Pulse 95 94 98 Oximetry 01/21/17 01/21/17 01/21/17 03:11 03:57 07:46 Temperature 98.4 F 98.3 F Pulse Rate 78 70 Respiratory 20 16 Rate Blood Pressure 107/47 94/47 (mmHg) O2 Sat by Pulse 98 92 97 Oximetry Oxygen Devices in Use Now: None Result Diagrams: 01/20/17 17:03 01/21/17 06:01 Assess/Plan/Problems-Billing Assessment: - Patient Problems (1) Acute systolic CHF (congestive heart failure) Code(s): I50.21 - ACUTE SYSTOLIC (CONGESTIVE) HEART FAILURE SNOMED Code(s): 266362772 Comment: BP meds were held due to low BP in AM as per nursing staff, bumex however was given. Status and Disposition: Patient left AMA as per nursing staff without being seen by a provider.
== END 2017-01-21 11:44 | disposition left against medical advice (07) ==
LOC: ED 16:42 → MEDTELE 17:49
PROVIDERS: ADMIT Hospitalist; ATTEND Hospitalist
DX: I13.0 Hypertensive heart and chronic kidney disease with heart failure and stage 1 through stage 4 chronic kidney disease, or unspecified chronic kidney disease (principal); I50.23 Acute on chronic systolic (congestive) heart failure; N18.4 Chronic kidney disease, stage 4 (severe); E11.22 Type 2 diabetes mellitus with diabetic chronic kidney disease; I25.5 Ischemic cardiomyopathy; E78.5 Hyperlipidemia, unspecified; K21.9 Gastro-esophageal reflux disease without esophagitis; Z79.899 Other long term (current) drug therapy; Z79.84 Long term (current) use of oral hypoglycemic drugs; F17.210 Nicotine dependence, cigarettes, uncomplicated; R74.8 Abnormal levels of other serum enzymes; I73.9 Peripheral vascular disease, unspecified; E03.9 Hypothyroidism, unspecified; R00.0 Tachycardia, unspecified
CPT/HCPCS: 36415; 36600; 71020; 80048; 80053; 82550; 82803; 83880; 84484; 85025; 86140; 93005; 96372; 96374; 99284; A9270-GY; G0378; J1644; J1940

== ENCOUNTER 2017-03-01 09:58 | Inpatient (IN) | payer OTHER ==
[2017-03-01 10:54] LABS: ABS Basophils 0.1 10^3/ul (0-0.2); ABS Eosinophils 0.2 10^3/ul (0-0.6); ABS Lymphocytes 0.3 10^3/ul (1.0-4.8); ABS Monocytes 0.3 10^3/ul (0-0.8); ABS Neutrophils 5.7 10^3/ul (1.5-7.7); ABS Nucleated RBC 0 10^3/ul; Eosinophil % 2.3 % (0-6); Hematocrit 27 % (35-47); Hemoglobin 9.4 g/dl (12.0-16.0); Lymphocyte % 4.8 % (25-47); Mean Corpuscular HGB Conc 34 g/dl (31-36); Mean Corpuscular Hemoglobin 30 pg (27-31); Mean Corpuscular Volume 88 fL (80-97); Mean Platelet Volume 8 um3 (7.4-10.4); Nucleated Red Blood Cells % 0; Platelet Count 244 10^3/ul (150-450); Red Blood Count 3.11 10^6/ul (4.0-5.4); Red Cell Distribution Width 15 % (10.5-15); White Blood Count 6.5 10^3/ul (3.5-10.8)
[2017-03-01 11:21] LABS: EGFR Non-African American 9.9 (>60)
--- NOTE | 2017-03-01 12:33 | RAD ---
INDICATION: Shortness breath and cough. COMPARISON: Comparison is made with prior chest x-ray study from January 20, 2017. TECHNIQUE: Dual-energy PA and lateral views of the chest were obtained. FINDINGS: There is a transvenous pacemaker present. The heart is within normal limits in size. There is diffuse prominence of the interstitial markings and small bilateral pleural effusions right greater than left. IMPRESSION: FINDINGS MOST CONSISTENT WITH CONGESTIVE HEART FAILURE.
[2017-03-01] MEDS ORDERED: Furosemide IV* 10 MG/ML VIAL (40 MG) IV ONE (13:27)
[2017-03-01] MEDS ORDERED: Albuterol HFA INHALER* 8 gm MDI INH PRN (13:33)
[2017-03-01] MEDS ORDERED: Furosemide IV* 10 MG/ML VIAL (40 MG) ONE (13:34)
[2017-03-01] MEDS ORDERED: Dextrose 50% Syringe 50 ML* 25 GM/50 ML SYRINGE IV PUSH PRN (13:38)
[2017-03-01] MEDS ORDERED: Polyethylene Glycol 3350* 17 GM PACKET PO PRN (13:39)
[2017-03-01] MEDS ORDERED: Ondansetron INJ* 2 MG/ML VIAL IV PRN (13:39)
[2017-03-01] MEDS ORDERED: Magnesium Hydroxide LIQ* 30 ML UDC PO PRN (13:40)
[2017-03-01] MEDS ORDERED: hydrALAZINE TAB* 25 MG PO SCH (14:00)
[2017-03-01] MEDS ORDERED: Potassium Chlor TAB* 20 MEQ TAB.ER PO ONE (14:09)
[2017-03-01] MEDS ORDERED: Nicotine Inhaler* 10 MG AMP INH PRN (14:21)
[2017-03-01] MEDS ORDERED: Mouth Piece, Nicotine* 1 EACH CARTRIDGE INH PRN (14:21)
--- NOTE | 2017-03-01 14:23 | RAD ---
HISTORY: Edema, bilateral calf pain COMPARISONS: December 10, 2013 TECHNIQUE: Multiple transverse and longitudinal ultrasound images were obtained of the bilateral lower extremities from the level of the common femoral vein inferiorly through to the infrapopliteal veins using grayscale, color Doppler, and spectral Doppler imaging with and without compression and with augmentation. FINDINGS: VEINS: The venous system of the bilateral lower extremities is compressible throughout its course, with normal flow on color Doppler imaging and normal response to augmentation on spectral Doppler imaging. SOFT TISSUES: Unremarkable. OTHER FINDINGS: There is calcified plaque of the femoral artery. IMPRESSION: 1. NO RIGHT LOWER EXTREMITY DEEP VEIN THROMBOSIS. 2. NO LEFT LOWER EXTREMITY DEEP VEIN THROMBOSIS. 3. ATHEROSCLEROSIS
[2017-03-01] MEDS: Heparin VIAL(*) 5000 UNITS/ML VIAL (FIVE THOUSAND) SUBCUT SCH ×2 (14:51→21:36)
--- NOTE | 2017-03-01 16:55 | HP ---
ATTENDING PHYSICIAN ADDENDUM NOW INCLUDED ON THIS REPORT CC: Dr. Logan Valdez * HISTORY AND PHYSICAL: DATE OF ADMISSION: 03/01/17 PRIMARY CARE PROVIDER: Dr. Logan Valdez. ATTENDING PHYSICIAN: Dr. Arlette Strong * (dictated by Harjit Solano NP). CHIEF COMPLAINT: Shortness of breath, constipation, abdominal swelling, lower extremity swelling. HISTORY OF PRESENT ILLNESS: Ms. Santana is a 66-year-old female with a past medical history significant for ischemic cardiomyopathy with a last known EF of 25% to 30%; recurrent decompensated chronic diastolic heart failure; chronic kidney disease, stage 4; coronary artery disease status post FL; diabetes mellitus, who presented to the emergency room with complaints of lower extremity swelling, abdominal swelling, and generally not feeling well for the last 3 weeks. The patient states approximately 3 weeks ago, she developed bronchitis, she was treated initially with doxycycline and due to GI side effects, she was changed to azithromycin. She has continued to have an intermittent cough and a poor appetite. She feels as though her abdomen is larger than normal and reports constipation. She denies any fever, chills, chest pain. She reports shortness of breath, nausea. She denies any vomiting, diarrhea. She reports that she normally does not have lower extremity edema, but for approximately 3 weeks has had significant lower extremity edema. The patient denies eating foods that do not belong on her low- sodium diet and she has been taking her metolazone and Bumex as prescribed. Due to her symptoms, she presented to the emergency room for further evaluation. While in the emergency room, the patient continued to have mild shortness of breath. She had labs showing her creatinine at her baseline, stage 4 chronic kidney disease. She is noted to have hypomagnesium and hypokalemia. She had an elevated troponin of 0.04, this appears to be her baseline. She had a BNP of 4201. Due to the patient having an elevated D-dimer of 570, she underwent bilateral venous Doppler ultrasound that is pending at this time. Due to the patient's persistent symptoms, the hospitalists were asked to evaluate her for admission. PAST MEDICAL HISTORY: 1. Coronary artery disease, status post myocardial infarction. 2. Ischemic cardiomyopathy with last known EF of 25% to 30%. 3. Chronic diastolic heart failure. 4. Melanoma. 5. Hyperlipidemia. 6. Diabetes mellitus. 7. Chronic kidney disease, stage 4. 8. GERD. 9. Depression. 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 11. Peripheral arterial disease. 12. Hypothyroidism. PAST SURGICAL HISTORY: 1. Status post section x2. 2. Status post cholecystectomy. 3. Status post ovarian cyst excision. 4. Status post cardiac stenting x2. 5. Status post excision of melanoma. 6. Status post tonsillectomy. 7. Status post appendectomy. 8. Status post ICD and pacer placement. MEDICATIONS: Home medications include: 1. Aspirin 81 mg oral daily. 2. Albuterol HFA inhaler 1 to 2 puffs inhalation every 4 hours as needed for shortness of breath or wheeze. 3. Lantus 20 units subcutaneous daily at bedtime. 4. Carvedilol 12.5 mg oral twice daily. 5. Bumex 2 mg oral twice daily. 6. Atorvastatin 40 mg oral daily. 7. Nitroglycerin 0.4 mg sublingual every 5 minutes as needed for chest pain. 8. Metolazone 5 mg oral daily. 9. Levothyroxine 100 mcg oral daily. 10. Isosorbide mononitrate ER 30 mg oral daily. 11. Glipizide 10 mg oral twice daily. 12. Amlodipine 5 mg oral daily. 13. Januvia 50 mg oral daily. 14. Protonix 40 mg oral twice daily. 15. Paxil 30 mg oral daily at bedtime. 16. Hydralazine 25 mg oral 3 times daily. ALLERGIES: PENICILLIN V and SULFA. FAMILY HISTORY: The patient's mother and father had history of coronary artery disease in their 80s. Her brother has a history of mitral valve prolapse. The patient's mother also has a history of diabetes mellitus. She denies any family history of cancer. SOCIAL HISTORY: The patient is a current smoker, smoking approximately half a pack a day. She smoked for approximately the last 45 years. She denies any alcohol or recreational drug use. 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 Her , Jerome, will be her surrogate decision maker in the event she is unable to make decisions for herself. REVIEW OF SYSTEMS: I performed a 14-point review of systems. All the pertinent positives and negatives mentioned in the history of present illness. The remaining review of systems is negative. PHYSICAL EXAMINATION GENERAL APPEARANCE: The patient is alert, pleasant, appears to be in no acute distress. VITAL SIGNS: Temperature 97.8, heart rate 83, respiratory rate 16, O2 sat 93% on room air, blood pressure 127/79. HEENT: Normocephalic, atraumatic. Pupils are equal and reactive to light. Extraocular movements are intact. RESPIRATORY: There is no accessory muscle use and the lungs are clear to auscultation bilateral. CARDIOVASCULAR: Regular rate and rhythm. S1, S2 present. There are no murmurs , rubs, or gallops. ABDOMEN: Large, soft, nontender. EXTREMITIES: There is 3+ bilateral lower extremity edema. DP and PT pulses are 2+ and symmetric. MUSCULOSKELETAL: There is no clubbing or cyanosis noted. The patient exhibits good strength in all extremities. NEUROLOGICAL: The patient is alert and oriented x4. Cranial nerves II through XII are grossly intact. PSYCHOLOGICAL: The patient is calm and cooperative. SKIN: There are no rashes or abnormalities. DIAGNOSTIC STUDIES/LAB DATA: Sodium 138, potassium 3.3, chloride 90, CO2 28, BUN 119, creatinine 4.48, glucose 336. Troponin 0.04. BNP 4201. D-dimer 570. Influenza A and B negative. White blood cell count 6.5, hemoglobin 9.4, hematocrit 27, and platelet count 244. Chest x-ray shows findings consistent with congestive heart failure. IMPRESSION: Ms. Santana is a 66-year-old female with past medical history significant for coronary artery disease, ischemic cardiomyopathy with ejection fraction 25% to 30%; chronic systolic heart failure; diabetes mellitus; chronic kidney disease, stage 4; hypothyroidism, who presents to the emergency room with complaints of poor appetite, bilateral lower extremity edema, and shortness of breath. She will be admitted as an observation for acute on chronic systolic heart failure. ASSESSMENT AND PLAN: 1. Acute on chronic systolic heart failure. The patient will receive 40 mg of Lasix now. I will continue her on her home metolazone, and give her another dose of IV Lasix in the morning. She will have strict I's and O's and daily weight. She will have supplemental oxygen as needed. She will be continued on a low-sodium diet. We will continue to follow her BUN and creatinine closely as they are already elevated and cautiously give her extra diuresis. We will check an echo to eval her heart function. 2. Shortness of breath. I suspect that this is secondary to the patient's heart failure. She does have an elevated D-dimer. She is not currently hypoxic or tachycardic, although pulmonary embolus is on the differential, this is low on the differential. I suspect her shortness of breath is secondary to her acute on chronic heart failure. She is currently having bilateral LE dopplers to rule out DVT, in the event that she does in fact have a DVT and needs to be ruled out for a pulmonary embolism, she would need a V/Q scan if she is unable to get a CTA of her chest due to her renal insufficiency. 3. Elevated troponin. This appears to be the patient's baseline. She denies chest pain. She will be monitored on telemetry. 4. Coronary artery disease, history of myocardial infarction and status post stent placement. The patient will be continued on her home aspirin, isosorbide , and statin. 5. Hypertension. The patient will be continued on her home carvedilol, amlodipine, and hydralazine. 6. Ischemic cardiomyopathy with last known ejection fraction of 25% to 30%. The patient is going to be continued on her home carvedilol. We will get a repeat echo. 7. Peripheral vascular disease and hyperlipidemia. The patient will be continued on her home atorvastatin. 8. Diabetes mellitus. The patient will be continued on low-sodium, consistent carbohydrate diet. We will hold her glipizide and Januvia. She will be continued on her home Lantus and placed on a lispro sliding scale with glucose checks a.c. and h.s. Her last hemoglobin A1c was 7.1 in August of 2016. 9. Chronic kidney disease, stage 4. We will avoid nephrotoxic agents and continue to follow while she is receiving increased diuretics. 10. Hypothyroidism. The patient will be continued on her home levothyroxine. Her last TSH was 0.54 in June of 2016. 11. Gastroesophageal reflux disease. The patient will be continued on PPI. 12. History of depression. The patient will be continued on Paxil. 13. Tobacco abuse. The patient will be placed on tobacco replacement and has been encouraged to stop smoking. 14. Fluids, electrolytes, and nutrition. The patient will be on a low-sodium, consistent carbohydrate diet. 15. Code status. Full code. 16. DVT prophylaxis. The patient is at high risk and will be placed on subcu heparin. 17. Disposition. Observation. TIME SPENT: Time for this admission was approximately 60 minutes, greater than half of that was spent with the patient discussing medications, past medical history, and the events leading up to her arrival today and performing a physical examination. The case has been reviewed with the attending, Dr. Strong, who agrees with the plan of care. Reviewed by HARJIT SOLANO, STRUCTURAL SHOP HELPER-C 03/01/17 0678 ADDENDUM: Devora Santana is a 66-year-old female with history of congestive heart failure and cardiomyopathy with an EF of 25% who presents complaining of leg edema. Her brain natriuretic peptide is markedly elevated and she is going to be placed on overnight observation with a diagnosis of CHF exacerbation. For further details of the patient's presentation and plan, please see history and physical dictated by Harjit Arriaga on 03/01/17, with which I agree. ARLETTE STRONG MD [id number]/[facility]PS #: [id number]/CPS #: [id number] CEE
[2017-03-01] MEDS: Atorvastatin* 40 MG TAB PO SCH (17:21)
[2017-03-01] MEDS: Insulin LISPRO* 1 UNITS UNIT SUBCUT SCH (17:22)
[2017-03-01] MEDS ORDERED: Bumetanide TAB* 2 MG PO SCH (18:00)
--- NOTE | 2017-03-01 19:57 | HP ---
HISTORY AND PHYSICAL: * ADDENDUM: Devora Santana is a 66-year-old female with history of congestive heart failure and cardiomyopathy with an EF of 25% who presents complaining of leg edema. Her brain natriuretic peptide is markedly elevated and she is going to be placed on overnight observation with a diagnosis of CHF exacerbation. For further details of the patient's presentation and plan, please see history and physical dictated by Sandra Arriaga on 03/01/17, with which I agree. [id number]/[facility] #: [id number] MTDD
[2017-03-01] MEDS ORDERED: Carvedilol TAB* 25 MG PO SCH (21:00)
[2017-03-01] MEDS: Carvedilol TAB* 25 MG PO SCH (21:33)
[2017-03-01] MEDS: PARoxetine HCL TAB* 10 MG PO SCH (21:33)
[2017-03-01] MEDS: hydrALAZINE TAB* 25 MG PO SCH (21:34)
[2017-03-01] MEDS: Insulin GLARGINE(*) 1 UNITS UNIT SUBCUT SCH (21:34)
[2017-03-01] MEDS: CMCS:Pantoprazole TAB (NF) 40 MG TAB PO SCH (21:36)
--- NOTE | 2017-03-01 22:33 | ED ---
Suleiman Bernard Stephanie, scribed for Christine Kelly MD on 03/01/17 at 1250 . HPI Cardiac - HPI Summary HPI Summary: Pt is a 66 y/o F presenting to the ED with c/o SOB and lower extremity edema. Pt began feeling symptoms 3 weeks ago and was diagnosed with bronchitis. She took doxycycline which made her sick. She took a Z-pack and her symptoms returned. Symptoms include productive cough. Denies CP, fever, and abd pain. Pt wakes up at night with SOB. Pt feels her sxs are due to CHF at this time. Pt takes bumex and metolazone and states "they aren't working". - History of Current Complaint Chief Complaint: EDGeneral Stated Complaint: UNABLE TO EAT/DRINK Hx Obtained From: Patient Onset/Duration: Started Weeks Ago - 3, Still Present Timing: Constant Initial Severity: Moderate Current Severity: Severe Pain Intensity: 5 Pain Scale Used: 0-10 Numeric Aggravating Factor(s): Nothing Alleviating Factor(s): Nothing Associated Signs and Symptoms: Positive: Shortness of Breath, Cough, Calf Pain/ Swelling, Edema - Pedal. Negative: Chest Pain, Fever, Abdominal Pain - Risk Factors Pulmonary Embolism Risk Factors: Malignancy Cardiac Risk Factors: CHF - Additional Pertinent History Primary Care Physician: [id number] - Allergy/Home Medications Allergies/Adverse Reactions: Allergies Allergy/AdvReac Type Severity Reaction Status Date / Time Penicillin V [From Pen-Vee-K] Allergy Severe Rash Verified 03/01/17 10:10 Sulfa Antibiotics Allergy Unknown Verified 03/01/17 10:10 Reaction Details PMH/Surg Hx/FS Hx/Imm Hx Endocrine/Hematology History: Reports: Hx Diabetes, Hx Thyroid Disease Cardiovascular History: Reports: Hx Angina, Hx Congestive Heart Failure, Hx Coronary Artery Disease, Hx Hypertension, Hx Pacemaker/ICD - 09/2016, Other Cardiovascular Problems/Disorders - Cardiac cath 2011 with 2 stents Denies: Hx Peripheral Vascular Disease Respiratory History: Reports: Hx Pleural Effusion Denies: Hx Chronic Obstructive Pulmonary Disease (COPD), Other Respiratory Problems/Disorders GI History: Reports: Hx Gastrointestinal Bleed Denies: Other GI Disorders - "stomach" CA, meghann, "oozing bleed" History: Reports: Hx Chronic Renal Failure, Hx Renal Disease - 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 lymphoma. melanoma- 2000 lymph nodes removed from right groin. -2003 spot removed from top of right foot. Hx Chemotherapy: Yes - Surgical History Surgery Procedure, Year, and Place: ,cholecystectomy, hysterectomy, melanoma- 2000 lymph nodes removed right groin, 2004 spot removed from top of right foot. Hx Anesthesia Reactions: No - Immunization History Date of Tetanus Vaccine: Unk Date of Influenza Vaccine: Fall 2013 Infectious Disease History: No Infectious Disease History: Reports: Hx Shingles Denies: Traveled Outside the in Last 30 Days - Family History Known Family History: Positive: None, Cardiac Disease - Positive to mother - Social History Alcohol Use: None Substance Use Type: Reports: None Hx Tobacco Use: Yes Smoking Status (MU): Heavy Every Day Tobacco Smoker Type: Cigarettes Length of Time of Smoking/Using Tobacco: About 40yrs Have You Smoked in the Last Year: Yes Review of Systems Negative: Fever Negative: Chest Pain Positive: Shortness Of Breath, Cough Negative: Abdominal Pain Skin: Negative Neurological: Negative Psychological: Normal All Other Systems Reviewed And Are Negative: Yes Physical Exam - Summary Physical Exam Summary: Appearance: Ill-appearing, moderate pain distress, Well-nourished Skin: Warm, color reflects adequate perfusion Head: Normal Head/Face inspection Eyes: Conjunctiva clear ENT: Normal inspection Neck: Supple, no nodes, no JVD. Respiratory: Rales half way up in lungs. Cardio: RRR, No murmur, pulses normal, brisk capillary refill Abdomen: soft, nontender Bowel sounds: present Musculoskeletal: Strength Intact/ ROM intact. 4+ pitting edema from toes to knees. Bilateral calf tenderness Neuro: Alert, muscle tone normal, facial symmetry, speech normal, sensory/motor intact Psychological: Normal Lower Extremity:Scabbed lesion on medial aspect of L ankle without red streak Triage Information Reviewed: Yes Vital Signs On Initial Exam: Initial Vitals Temp Pulse Resp BP Pulse Ox 97.8 F 87 16 113/52 97 01/02/18 10:10 03/01/17 10:10 03/01/17 10:10 03/01/17 10:10 03/01/17 10:10 Vital Signs Reviewed: Yes - Vernalis Coma Scale Coma Scale Total: 15 Diagnostics - Vital Signs Vital Signs Temp Pulse Resp BP Pulse Ox 03/01/17 12:00 81 97 03/01/17 11:30 80 111/71 96 03/01/17 11:00 81 119/64 97 03/01/17 10:40 87 97 03/01/17 10:37 112/68 03/01/17 10:10 97.8 F 87 16 113/52 97 - Laboratory Lab Results: Lab Results 03/01/17 03/01/17 03/01/17 Range/Units 10:45 10:45 10:45 WBC 6.5 (3.5-10.8) 10^3/ul RBC 3.11 L (4.0-5.4) 10^6/ul Hgb 9.4 L (12.0-16.0) g/dl Hct 27 L (35-47) % MCV 88 (80-97) fL MCH 30 (27-31) pg MCHC 34 (31-36) g/dl RDW 15 (10.5-15) % Plt Count 244 (150-450) 10^3/ul MPV 8 (7.4-10.4) um3 Neut % (Auto) 87.2 H (38-83) % Lymph % (Auto) 4.8 L (25-47) % Piatt % (Auto) 4.9 (1-9) % Eos % (Auto) 2.3 (0-6) % Baso % (Auto) 0.8 (0-2) % Absolute Neuts (auto) 5.7 (1.5-7.7) 10^3/ul Absolute Lymphs (auto) 0.3 L (1.0-4.8) 10^3/ul Absolute Monos (auto) 0.3 (0-0.8) 10^3/ul Absolute Eos (auto) 0.2 (0-0.6) 10^3/ul Absolute Basos (auto) 0.1 (0-0.2) 10^3/ul Absolute Nucleated RBC 0 10^3/ul Nucleated RBC % 0 D-Dimer, Quantitative (Less Than 230) ng/mL Sodium 130 L (133-145) mmol/L Potassium 3.3 L (3.5-5.0) mmol/L Chloride 90 L (101-111) mmol/L Carbon Dioxide 28 (22-32) mmol/L Anion Gap 12 H (2-11) mmol/L BUN 119 H (6-24) mg/dL Creatinine 4.48 H (0.51-0.95) mg/dL Est GFR ( Amer) 12.7 (>60) Est GFR (Non-Af Amer) 9.9 (>60) BUN/Creatinine Ratio 26.6 H (8-20) Glucose 336 H (70-100) mg/dL Lactic Acid (0.5-2.0) mmol/L Calcium 8.2 L (8.6-10.3) mg/dL Total Bilirubin 0.90 (0.2-1.0) mg/dL AST 27 (13-39) U/L ALT 38 (7-52) U/L Alkaline Phosphatase 303 H (34-104) U/L Troponin I 0.04 H* (<0.04) ng/mL B-Natriuretic Peptide 4201 H ( - 100) pg/mL Total Protein 6.1 L (6.4-8.9) g/dL Albumin 3.2 (3.2-5.2) g/dL Globulin 2.9 (2-4) g/dL Albumin/Globulin Ratio 1.1 (1-3) Influenza A (Rapid) (Negative) Influenza B (Rapid) (Negative) 03/01/17 03/01/17 03/01/17 Range/Units 10:45 10:45 12:02 WBC (3.5-10.8) 10^3/ul RBC (4.0-5.4) 10^6/ul Hgb (12.0-16.0) g/dl Hct (35-47) % MCV (80-97) fL MCH (27-31) pg MCHC (31-36) g/dl RDW (10.5-15) % Plt Count (150-450) 10^3/ul MPV (7.4-10.4) um3 Neut % (Auto) (38-83) % Lymph % (Auto) (25-47) % Piatt % (Auto) (1-9) % Eos % (Auto) (0-6) % Baso % (Auto) (0-2) % Absolute Neuts (auto) (1.5-7.7) 10^3/ul Absolute Lymphs (auto) (1.0-4.8) 10^3/ul Absolute Monos (auto) (0-0.8) 10^3/ul Absolute Eos (auto) (0-0.6) 10^3/ul Absolute Basos (auto) (0-0.2) 10^3/ul Absolute Nucleated RBC 10^3/ul Nucleated RBC % D-Dimer, Quantitative 570 H (Less Than 230) ng/mL Sodium (133-145) mmol/L Potassium (3.5-5.0) mmol/L Chloride (101-111) mmol/L Carbon Dioxide (22-32) mmol/L Anion Gap (2-11) mmol/L BUN (6-24) mg/dL Creatinine (0.51-0.95) mg/dL Est GFR ( Amer) (>60) Est GFR (Non-Af Amer) (>60) BUN/Creatinine Ratio (8-20) Glucose (70-100) mg/dL Lactic Acid 1.1 (0.5-2.0) mmol/L Calcium (8.6-10.3) mg/dL Total Bilirubin (0.2-1.0) mg/dL AST (13-39) U/L ALT (7-52) U/L Alkaline Phosphatase (34-104) U/L Troponin I (<0.04) ng/mL B-Natriuretic Peptide ( - 100) pg/mL Total Protein (6.4-8.9) g/dL Albumin (3.2-5.2) g/dL Globulin (2-4) g/dL Albumin/Globulin Ratio (1-3) Influenza A (Rapid) Negative (Negative) Influenza B (Rapid) Negative (Negative) Result Diagrams: 03/01/17 10:45 03/01/17 10:45 Lab Statement: Any lab studies that have been ordered have been reviewed, and results considered in the medical decision making process. - Radiology CXR Xray Interpretation: No Acute Changes Radiology Interpretation Completed By: Radiologist - FINDINGS MOST CONSISTENT WITH CONGESTIVE HEART FAILURE. - Ultrasound No standard instances Ultrasound Interpretation: No Acute Changes Ultrasound Interpretation Completed By: Radiologist - 1. NO RIGHT LOWER EXTREMITY DEEP VEIN THROMBOSIS. 2. NO LEFT LOWER EXTREMITY DEEP VEIN THROMBOSIS. 3. ATHEROSCLEROSIS Disposition - Course Course Of Treatment: Pt will be admitted for further eval and treatment of CHF. Pt with elevated d dimer. Will check bilat LE dopplers to eval for DVT. If positive for DVT, needs VQ scan to eval for PE. With BNP > 4000, dx most consistent with acute on chronic systolic CHF. - Differential Dx - Cardiopulmonary Differential Diagnoses - Cardiopulmonary: Bronchitis, CAD, Cardiomyopathy, CHF, Lower Resp Infection, Pulmonary Edema, Pulmonary Embolism - Diagnoses Provider Diagnoses: CHF (congestive heart failure), Poorly controlled diabetes mellitus, Elevated troponin, Hypokalemia, Chronic kidney disease, stage IV (severe) - Critical Care Time Critical Care Time: 30-74 min - 30 minutes Discharge - Discharge Plan Condition: Stable Disposition: ADMITTED TO [facility] The documentation as recorded by the Suleiman friedman Stephanie accurately reflects the service I personally performed and the decisions made by Robin blum Barbara J, MD.
[2017-03-02 05:41] LABS: ABS Basophils 0.1 10^3/ul (0-0.2); ABS Eosinophils 0.2 10^3/ul (0-0.6); ABS Lymphocytes 0.5 10^3/ul (1.0-4.8); ABS Monocytes 0.4 10^3/ul (0-0.8); ABS Nucleated RBC 0 10^3/ul; Eosinophil % 4.5 % (0-6); Hematocrit 26 % (35-47); Hemoglobin 8.8 g/dl (12.0-16.0); Lymphocyte % 12.8 % (25-47); Mean Corpuscular HGB Conc 34 g/dl (31-36); Mean Corpuscular Hemoglobin 30 pg (27-31); Mean Corpuscular Volume 88 fL (80-97); Mean Platelet Volume 8 um3 (7.4-10.4); Nucleated Red Blood Cells % 0; Platelet Count 245 10^3/ul (150-450); Red Blood Count 2.93 10^6/ul (4.0-5.4); Red Cell Distribution Width 15 % (10.5-15); White Blood Count 4.1 10^3/ul (3.5-10.8)
[2017-03-02] MEDS: Heparin VIAL(*) 5000 UNITS/ML VIAL (FIVE THOUSAND) SUBCUT SCH ×3 (05:55→20:39)
[2017-03-02] MEDS: Levothyroxine TAB* 100 MCG TAB PO SCH (05:55)
[2017-03-02 05:57] LABS: EGFR Non-African American 10.4 (>60)
[2017-03-02] MEDS: Insulin LISPRO* 1 UNITS UNIT SUBCUT SCH ×4 (07:52→23:01)
[2017-03-02] MEDS ORDERED: Furosemide IV* 10 MG/ML VIAL (40 MG) IV ONE (08:00)
[2017-03-02] MEDS ORDERED: Magnesium Sulf 4 GM/100 ML IV* 4,000 MG/100 ML BAG IVPB ONE (08:02)
[2017-03-02] MEDS: hydrALAZINE TAB* 25 MG PO SCH (08:32)
[2017-03-02] MEDS ORDERED: amLODIPine TAB* 5 MG PO SCH (09:00)
--- NOTE | 2017-03-02 09:14 | ECHO ---
Patient: DEVORA RIVERS [facility] Rec#: [id number] : 1950 Date: 03/02/2017 Age: 66y Height: 162.56 cm / 64.0 in Weight: 81.19 kg / 178.9 lbs Sex: F BSA: 1.87 Room#: [facility] Admit Date#: 03/01/2017 Type: Inpatient Referring: Sandar Solorio NP Reading: Sudha Rene MD Manager Culinary: Devora Sheth,RDCS,RDMS CC: Logan Valdez MD Transthoracic Echocardiogram Indication: CHF BP: 127/79 HR: 71 Rhythm: NSR Findings History: CAD, PCI, ischemic cardiomyopathy, ICD, HTN, HLD, DM, CKD Technical Comments: The study quality is good. Left Ventricle: The left ventricular chamber size is moderately dilated. Mild concentric left ventricular hypertrophy is observed. There is global hypokinesis of the left ventricle with minor regional variation.Base moves best, apex appears akinetic. There is severely decreased left ventricular systolic function. The estimated ejection fraction is 20-25%. The left ventricular diastolic filling pattern is restrictive. Left Atrium: The left atrium is moderately dilated. Right Ventricle: The right ventricle is mildly dilated. The right ventricular global systolic function is mildly reduced. A pacemaker wire is visualized in the right ventricle. Right Atrium: The right atrial cavity size is normal. A pacemaker wire is visualized in the right atrium. Aortic Valve: The aortic valve is trileaflet. The aortic valve leaflets are mildly thickened. There is a trace of aortic regurgitation. There is no evidence of aortic stenosis. Mitral Valve: There is mitral annular calcification. The mitral valve leaflets are mildly thickened. There is moderate to severe mitral regurgitation. There is borderline mitral stenosis. Tricuspid Valve: The tricuspid valve leaflets are normal. There is moderate tricuspid regurgitation. The tricuspid regurgitant jet is centrally directed. The right ventricular systolic pressure is estimated at 61 mmHg. There is evidence of moderate to severe pulmonary hypertension. Pulmonic Valve: The pulmonic valve appears normal. There is moderate pulmonic regurgitation. There is no pulmonic stenosis. Pericardium: There is no significant pericardial effusion. Aorta: The aortic root appears normal. The aortic arch is not well visualized. Pulmonary Artery: The main pulmonary artery appears normal. Venous: The inferior vena cava is dilated. There is no change in the dimension of the inferior vena cava with respiration consistent with markedly increased right atrial pressure. Conclusions The left ventricular chamber size is moderately dilated with mild left ventricular hypertrophy. There is global hypokinesis of the left ventricle with minor regional variation, the base moves best, apex appears akinetic. The estimated ejection fraction is 20%. The left ventricular diastolic filling pattern is restrictive. The right ventricular global systolic function is mildly reduced and chamber diameter mildly dilated. A pacemaker wire is visualized in the right ventricle. There is a trace of aortic regurgitation. There is moderate to severe mitral regurgitation. There is borderline mitral stenosis. There is moderate tricuspid regurgitation. There is evidence of moderate to severe pulmonary hypertension. The right ventricular systolic pressure is estimated at 61 mmHg. There is moderate pulmonic regurgitation. Compared with prior echo of 08/16/16, EF has decreased from 25-30%, diastolic filling has worsened from pseudonormal to restrictive pattern, RV dysfunction newly noted, trace AI newly noted, the degree of MR has increased from moderate, the degree of TR has increased from trace, elevated PA pressure newly noted (unable to estimate on prior study). Measurements Name Value Normal Range RVIDd (AP) 2D 2.8 cm (0.9 - 2.6) RVDdMajor (2D) 3.3 cm (2.2 - 4.4) RAd ISD 4CH 4.5 cm (3.4 - 4.9) RA (A4C)W 4.2 cm (2.9 - 4.6) IVSd (2D) 1.2 cm (0.6 - 1) LVPWd (2D) 1.1 cm (0.6 - 1) LVIDd (2D) 6.2 cm (3.6 - 5.4) LVIDs (2D) 5.2 cm - LV FS (2D) 16 % (25 - 45) Aortic Annulus 2 cm (1.4 - 2.6) Ao root diameter (2D) 2.5 cm (2.1 - 3.5) Ascending Ao 3.2 cm (2.1 - 3.4) LA dimension (AP) 2D 4.6 cm (2.3 - 3.8) LAd ISD 4CH 5.8 cm (2.9 - 5.3) LA ISD 4CH W 5.1 cm (2.5 - 4.5) Name Value Normal Range LA ESV SP 4CH (A/L) 65.55 ml - LA ESV SP 2CH (A/L) 84.7 ml - LA ESV BP (A/L) 78.48 ml - LA ESV BP (A/L) index 42 ml/m2 - LA ESV SP 4CH (MOD) 63.47 ml - LA ESV SP 2CH (MOD) 79.96 ml - Name Value Normal Range MV E-wave Vmax 1.2 m/sec - MV deceleration time 226 msec - MV A-wave Vmax 0.2 m/sec - MV E:A ratio 6 ratio - LV lateral e' Vmax 0.03 m/sec - LV E:e' lateral ratio 40 ratio - Name Value Normal Range AV Vmax 1.1 m/sec - AV VTI 23 cm - AV peak gradient 5 mmHg - AV mean gradient 2.6 mmHg - LVOT Vmax 0.9 m/sec - LVOT VTI 18 cm - LVOT peak gradient 3.2 mmHg - LVOT mean gradient 1.7 mmHg - HOANG Vmax 0.4 m/sec - Name Value Normal Range MV Vmax 1.5 m/sec - MV VTI 29 cm - MV peak gradient 9 mmHg - MV mean gradient 2.5 mmHg - MV PHT 53 msec - MR Vmax 3.8 m/sec - MR VTI 121 cm - MR flow (PISA) 104 ml/sec - MR ERO 3 cm2 - MR PISA radius 0.7 cm - MR alias Vmax 37 cm/sec - MVA (PHT) 4.2 cm2 - Name Value Normal Range TR Vmax 3.4 m/sec - TR peak gradient 46 mmHg - RAP 15 mmHg - RVSP 61 mmHg - IVC diameter 2.8 cm - Name Value Normal Range PV Vmax 0.6 m/sec - PV peak gradient 1.6 mmHg -
--- NOTE | 2017-03-02 09:27 | PN ---
Subjective Date of Service: 03/02/17 Interval History: Patient seen and examined at bedside. She denies any current SOB or CP; currently not needing oxygen. She had difficulty sleeping secondary to orthopnea and subsequent anxiety/panic. She reports a 15lb weight gain over the past week. She denies any dietary indiscretions or missing medication. She denies lightheadedness, orthostatic dizziness, or recent falls. She does report fatigue. She was recently treated this past week for URI/bronchitis with doxycycline (did not tolerate) and azithromycin. Family History: Unchanged from Admission Social History: Unchanged from Admission Past Medical History: Unchanged from Admission Objective Active Medications: Albuterol (Ventolin Hfa Inhaler*) 2 puff INH Q4H PRN PRN Reason: SOB/WHEEZING Last Admin: 03/01/17 20:48 Dose: 2 puff Amlodipine Besylate (Norvasc Tab*) 5 mg PO DAILY [facility] Aspirin (Aspirin Ec Low Dose*) 81 mg PO DAILY [facility] Atorvastatin Calcium (Lipitor*) 40 mg PO 1700 [facility] Last Admin: 03/01/17 17:21 Dose: 40 mg Carvedilol (Coreg Tab*) 12.5 mg PO BID [facility] Last Admin: 03/01/17 21:33 Dose: 12.5 mg Device (Nicotine Mouth Piece*) 1 each INH .USE WITH NICOTROL PRN PRN Reason: CRAVING Dextrose (D50w Syringe 50 Ml*) 12.5 gm IV PUSH .FOR FS < 60 - SS PRN PRN Reason: FS < 60 Heparin Sodium (Porcine) (Heparin Vial(*)) 5,000 units SUBCUT Q8HR [facility] Last Admin: 03/02/17 05:55 Dose: 5,000 units Magnesium Sulfate (Magnesium Sulf 4 Gm/100 Ml Iv*) 4,000 mg in 100 mls @ 33.333 mls/hr IVPB ONCE ONE Stop: 03/02/17 11:01 Insulin Glargine (Lantus(*)) 20 units SUBCUT BEDTIME [facility] Last Admin: 03/01/17 21:34 Dose: 20 units Insulin Human Lispro (Humalog*) 0 - 10 units SUBCUT AC [facility] PRN Reason: Protocol Last Admin: 03/02/17 07:52 Dose: Not Given Isosorbide Mononitrate (Imdur Er Tab*) 30 mg PO DAILY [facility] Levothyroxine Sodium (Synthroid Tab*) 100 mcg PO DAILY@0600 [facility] Last Admin: 03/02/17 05:55 Dose: 100 mcg Magnesium Hydroxide (Milk Of Magnesia Liq*) 30 ml PO Q6H PRN PRN Reason: CONSTIPATION Metolazone (Zaroxolyn Tab*) 5 mg PO DAILY [facility] Nicotine (Nicotine Inhaler*) 10 mg INH Q2H PRN PRN Reason: CRAVING Ondansetron HCl (Zofran Inj*) 4 mg IV Q6H PRN PRN Reason: NAUSEA Pantoprazole Sodium (Protonix Tab (Nf)) 40 mg PO BID [facility] Last Admin: 03/01/17 21:36 Dose: 40 mg Paroxetine HCl (Paxil Tab*) 30 mg PO BEDTIME [facility] Last Admin: 03/01/17 21:33 Dose: 30 mg Polyethylene Glycol/Electrolytes (Miralax*) 17 gm PO DAILY PRN PRN Reason: CONSTIPATION Potassium Chloride (Klor Con Er Tab*) 20 meq PO TID [facility] Vital Signs - 8 hr 03/02/17 03/02/17 03:34 08:08 Temperature 98.3 F 97.6 F Pulse Rate 69 71 Respiratory 14 16 Rate Blood Pressure 99/54 100/57 (mmHg) O2 Sat by Pulse 92 97 Oximetry Oxygen Devices in Use Now: None Appearance: Female patient, sitting up in bed, NAD Eyes: No Scleral Icterus Ears/Nose/Mouth/Throat: Clear Oropharnyx, Mucous Membranes Moist Respiratory: Symmetrical Chest Expansion and Respiratory Effort, Clear to Auscultation Cardiovascular: NL Sounds; No Murmurs; No JVD, RRR Abdominal: NL Sounds; No Tenderness; No Distention Extremities: - - 2-3+ pitting edema to BLE Neurological: Alert and Oriented x 3, NL Muscle Strength and Tone Lines/Tubes/Other Access: Clean, Dry and Intact Peripheral IV Nutrition: Taking PO's Result Diagrams: 03/02/17 05:22 03/02/17 05:22 Additional Lab and Data: Lab Results 03/01/17 03/01/17 03/01/17 Range/Units 10:45 10:45 10:45 WBC 6.5 (3.5-10.8) 10^3/ul RBC 3.11 L (4.0-5.4) 10^6/ul Hgb 9.4 L (12.0-16.0) g/dl Hct 27 L (35-47) % MCV 88 (80-97) fL MCH 30 (27-31) pg MCHC 34 (31-36) g/dl RDW 15 (10.5-15) % Plt Count 244 (150-450) 10^3/ul MPV 8 (7.4-10.4) um3 Neut % (Auto) 87.2 H (38-83) % Lymph % (Auto) 4.8 L (25-47) % [place] % (Auto) 4.9 (1-9) % Eos % (Auto) 2.3 (0-6) % Baso % (Auto) 0.8 (0-2) % Absolute Neuts (auto) 5.7 (1.5-7.7) 10^3/ul Absolute Lymphs (auto) 0.3 L (1.0-4.8) 10^3/ul Absolute Monos (auto) 0.3 (0-0.8) 10^3/ul Absolute Eos (auto) 0.2 (0-0.6) 10^3/ul Absolute Basos (auto) 0.1 (0-0.2) 10^3/ul Absolute Nucleated RBC 0 10^3/ul Nucleated RBC % 0 D-Dimer, Quantitative (Less Than 230) ng/mL Sodium 130 L (133-145) mmol/L Potassium 3.3 L (3.5-5.0) mmol/L Chloride 90 L (101-111) mmol/L Carbon Dioxide 28 (22-32) mmol/L Anion Gap 12 H (2-11) mmol/L BUN 119 H (6-24) mg/dL Creatinine 4.48 H (0.51-0.95) mg/dL Est GFR ( Amer) 12.7 (>60) Est GFR (Non-Af Amer) 9.9 (>60) BUN/Creatinine Ratio 26.6 H (8-20) Glucose 336 H (70-100) mg/dL Lactic Acid (0.5-2.0) mmol/L Calcium 8.2 L (8.6-10.3) mg/dL Total Bilirubin 0.90 (0.2-1.0) mg/dL AST 27 (13-39) U/L ALT 38 (7-52) U/L Alkaline Phosphatase 303 H (34-104) U/L Troponin I 0.04 H* (<0.04) ng/mL B-Natriuretic Peptide 4201 H ( - 100) pg/mL Total Protein 6.1 L (6.4-8.9) g/dL Albumin 3.2 (3.2-5.2) g/dL Globulin 2.9 (2-4) g/dL Albumin/Globulin Ratio 1.1 (1-3) Influenza A (Rapid) (Negative) Influenza B (Rapid) (Negative) 03/01/17 03/01/17 03/01/17 Range/Units 10:45 10:45 12:02 WBC (3.5-10.8) 10^3/ul RBC (4.0-5.4) 10^6/ul Hgb (12.0-16.0) g/dl Hct (35-47) % MCV (80-97) fL MCH (27-31) pg MCHC (31-36) g/dl RDW (10.5-15) % Plt Count (150-450) 10^3/ul MPV (7.4-10.4) um3 Neut % (Auto) (38-83) % Lymph % (Auto) (25-47) % [place] % (Auto) (1-9) % Eos % (Auto) (0-6) % Baso % (Auto) (0-2) % Absolute Neuts (auto) (1.5-7.7) 10^3/ul Absolute Lymphs (auto) (1.0-4.8) 10^3/ul Absolute Monos (auto) (0-0.8) 10^3/ul Absolute Eos (auto) (0-0.6) 10^3/ul Absolute Basos (auto) (0-0.2) 10^3/ul Absolute Nucleated RBC 10^3/ul Nucleated RBC % D-Dimer, Quantitative 570 H (Less Than 230) ng/mL Sodium (133-145) mmol/L Potassium (3.5-5.0) mmol/L Chloride (101-111) mmol/L Carbon Dioxide (22-32) mmol/L Anion Gap (2-11) mmol/L BUN (6-24) mg/dL Creatinine (0.51-0.95) mg/dL Est GFR ( Amer) (>60) Est GFR (Non-Af Amer) (>60) BUN/Creatinine Ratio (8-20) Glucose (70-100) mg/dL Lactic Acid 1.1 (0.5-2.0) mmol/L Calcium (8.6-10.3) mg/dL Total Bilirubin (0.2-1.0) mg/dL AST (13-39) U/L ALT (7-52) U/L Alkaline Phosphatase (34-104) U/L Troponin I (<0.04) ng/mL B-Natriuretic Peptide ( - 100) pg/mL Total Protein (6.4-8.9) g/dL Albumin (3.2-5.2) g/dL Globulin (2-4) g/dL Albumin/Globulin Ratio (1-3) Influenza A (Rapid) Negative (Negative) Influenza B (Rapid) Negative (Negative) Assess/Plan/Problems-Billing Assessment: Ms. Santana is a 66 yo female with a PMH of CAD, ischemic cardiomyopathy with EF 25-30%, chronic systolic HF, DM, CKD stage 4, hypothyroidism, depression, GERD, and PVD who presented to the ED on 03/01/17 with concern for shortness of breath, poor appetite, and bilateral lower extremity edema. - Patient Problems (1) Acute on chronic systolic (congestive) heart failure Code(s): I50.23 - ACUTE ON CHRONIC SYSTOLIC (CONGESTIVE) HEART FAILURE Comment : In acute exacerbation, appears secondary to recent illness Patient reports persistent orthopnea and PND Baseline weight is 165lbs, per the patient Denies dietary indiscretions or medication non-compliance Continue metolazone, IV furosemide Daily weights, I/O (2) Cardiomyopathy Code(s): I42.9 - CARDIOMYOPATHY, UNSPECIFIED Comment: History of ischemic cardiomyopathy Last echo showed EF 25-30% Repeat echocardiogram today Continue with IV furosemide and metolazone, home carvedilol Patient has ICD/pacemaker Outpatient manufacturing baker is Dr. Snell ([facility] cardiology) (3) Chronic kidney disease, stage IV (severe) Code(s): N18.4 - CHRONIC KIDNEY DISEASE, STAGE 4 (SEVERE) Comment: Creatinine appears to be within baseline Avoid nephrotoxic agents Trend BMP closely while utilizing IV diuretics May need to consider nephrology consult here; will definitely need f/u in outpatient setting as patient is dependent on diuretics (4) Elevated troponin Code(s): R79.89 - OTHER SPECIFIED ABNORMAL FINDINGS OF BLOOD CHEMISTRY Comment : Trop 0.04, denies CP Suspect demand ischemia from CHF exacerbation. (5) CAD (coronary artery disease) Code(s): I25.10 - ATHSCL HEART DISEASE OF [place] CORONARY ARTERY W/O ANG PCTRS Comment: Asymptomatic elevation in trop, suspect demand ischemia. Continue carvedilol, atorvastatin, isosorbde, and aspirin. (6) Hypertension Code(s): I10 - ESSENTIAL (PRIMARY) HYPERTENSION Comment: SBP 80-100s. Hydralazine held Continue carvedilol, amlodipine with hold parameters (7) Hypothyroid Code(s): E03.9 - HYPOTHYROIDISM, UNSPECIFIED Comment: Continue current dose of levothyroxine. (8) Peripheral vascular disease Code(s): I73.9 - PERIPHERAL VASCULAR DISEASE, UNSPECIFIED Comment: Continue ASA, statin, cilostazol. (9) Type II diabetes mellitus Comment: BG 103-200s Continue Lispro SSI and Lantus [place] home oral hypoglycemics (10) Depression Code(s): F32.9 - MAJOR DEPRESSIVE DISORDER, SINGLE EPISODE, UNSPECIFIED Comment: With anxiety Continue paroxetine. (11) Hyperlipidemia Code(s): E78.5 - HYPERLIPIDEMIA, UNSPECIFIED Comment: Continue atorvastatin. (12) Tobacco abuse Code(s): Z72.0 - TOBACCO USE Comment: Smoking cessation education PRN nicotine inhaler (13) DVT prophylaxis Current Visit: No Status: Acute Code(s): APD9101 - SNOMED Code(s): 169827813 Comment: SQ heparin Status and Disposition: OBV admit. D/c to home when medically stable.
[2017-03-02] MEDS: Isosorbide Mononitrate ER TAB* 30 MG PO SCH (09:38)
[2017-03-02] MEDS: Aspirin EC Low Dose* 81 MG TAB.EC PO SCH (09:38)
[2017-03-02] MEDS: Potassium Chlor TAB* 20 MEQ TAB.ER PO SCH ×3 (09:39→20:38)
[2017-03-02] MEDS: CMCS:Pantoprazole TAB (NF) 40 MG TAB PO SCH ×2 (09:41→20:38)
[2017-03-02] MEDS: Metolazone TAB* 5 MG PO SCH (10:55)
[2017-03-02] MEDS: Carvedilol TAB* 25 MG PO SCH ×2 (10:55→20:37)
[2017-03-02] MEDS: amLODIPine TAB* 5 MG PO SCH (13:38)
[2017-03-02] MEDS ORDERED: guaiFENesin LIQ* 100 MG/5 ML UDC PO PRN (16:02)
[2017-03-02] MEDS: Atorvastatin* 40 MG TAB PO SCH (17:36)
[2017-03-02] MEDS: Cilostazol TAB* 100 MG PO SCH (20:38)
[2017-03-02] MEDS: PARoxetine HCL TAB* 10 MG PO SCH (20:38)
[2017-03-02] MEDS: Insulin GLARGINE(*) 1 UNITS UNIT SUBCUT SCH (23:01)
[2017-03-03] MEDS: Levothyroxine TAB* 100 MCG TAB PO SCH (05:31)
[2017-03-03] MEDS: Heparin VIAL(*) 5000 UNITS/ML VIAL (FIVE THOUSAND) SUBCUT SCH ×3 (05:31→22:33)
[2017-03-03] MEDS: Insulin LISPRO* 1 UNITS UNIT SUBCUT SCH ×4 (08:14→22:32)
[2017-03-03] MEDS: Metolazone TAB* 5 MG PO SCH (08:23)
[2017-03-03] MEDS: Potassium Chlor TAB* 20 MEQ TAB.ER PO SCH ×3 (08:23→22:31)
[2017-03-03] MEDS: Carvedilol TAB* 25 MG PO SCH ×2 (08:23→22:31)
[2017-03-03] MEDS: Cilostazol TAB* 100 MG PO SCH ×2 (08:23→22:31)
[2017-03-03] MEDS: Aspirin EC Low Dose* 81 MG TAB.EC PO SCH (08:23)
[2017-03-03] MEDS: amLODIPine TAB* 5 MG PO SCH (08:24)
[2017-03-03] MEDS: Isosorbide Mononitrate ER TAB* 30 MG PO SCH (08:24)
[2017-03-03] MEDS ORDERED: Pneumococcal *Vac Polyvalent 0.5 ML VIAL IM ONE (09:00)
[2017-03-03] MEDS ORDERED: Influenza VAC *QUAD* 2017-18* 0.5 ML SYRINGE IM ONE (09:00)
[2017-03-03] MEDS: CMCS:Pantoprazole TAB (NF) 40 MG TAB PO SCH ×2 (09:09→22:31)
[2017-03-03] MEDS ORDERED: Furosemide IV* 10 MG/ML VIAL (40 MG) IV SLOW PU ONE (11:06)
--- NOTE | 2017-03-03 12:11 | PN ---
Subjective Date of Service: 03/03/17 Interval History: Patient seen and examined at bedside. She reports feeling better and reports improvement in SOB and orthopnea. However, patient actually with no weight loss (actually up a few ounces). Discussed utilizing more IV Lasix to get better diuresis started in order to prevent return of symptoms. Patient agrees. No other acute concerns. Family History: Unchanged from Admission Social History: Unchanged from Admission Past Medical History: Unchanged from Admission Objective Active Medications: Albuterol (Ventolin Hfa Inhaler*) 2 puff INH Q4H PRN PRN Reason: SOB/WHEEZING Last Admin: 03/01/17 20:48 Dose: 2 puff Amlodipine Besylate (Norvasc Tab*) 5 mg PO DAILY [facility] Last Admin: 03/03/17 08:24 Dose: 5 mg Aspirin (Aspirin Ec Low Dose*) 81 mg PO DAILY [facility] Last Admin: 03/03/17 08:23 Dose: 81 mg Atorvastatin Calcium (Lipitor*) 40 mg PO 1700 [facility] Last Admin: 03/02/17 17:36 Dose: 40 mg Carvedilol (Coreg Tab*) 12.5 mg PO BID [facility] Last Admin: 03/03/17 08:23 Dose: 12.5 mg Cilostazol (Pletal Tab*) 100 mg PO BID [facility] Last Admin: 03/03/17 08:23 Dose: 100 mg Device (Nicotine Mouth Piece*) 1 each INH .USE WITH NICOTROL PRN PRN Reason: CRAVING Dextrose (D50w Syringe 50 Ml*) 12.5 gm IV PUSH .FOR FS < 60 - SS PRN PRN Reason: FS < 60 Guaifenesin (Robitussin*) 5 ml PO Q6H PRN PRN Reason: COUGH Heparin Sodium (Porcine) (Heparin Vial(*)) 5,000 units SUBCUT Q8HR [facility] Last Admin: 03/03/17 05:31 Dose: 5,000 units Insulin Glargine (Lantus(*)) 20 units SUBCUT BEDTIME [facility] Last Admin: 03/02/17 23:01 Dose: 20 units Insulin Human Lispro (Humalog*) 0 - 10 units SUBCUT ACHS [facility] PRN Reason: Protocol Last Admin: 03/03/17 08:14 Dose: Not Given Isosorbide Mononitrate (Imdur Er Tab*) 30 mg PO DAILY [facility] Last Admin: 03/03/17 08:24 Dose: 30 mg Levothyroxine Sodium (Synthroid Tab*) 100 mcg PO DAILY@0600 [facility] Last Admin: 03/03/17 05:31 Dose: 100 mcg Magnesium Hydroxide (Milk Of Magnesia Liq*) 30 ml PO Q6H PRN PRN Reason: CONSTIPATION Last Admin: 03/03/17 03:43 Dose: 30 ml Metolazone (Zaroxolyn Tab*) 5 mg PO DAILY [facility] Last Admin: 03/03/17 08:23 Dose: 5 mg Nicotine (Nicotine Inhaler*) 10 mg INH Q2H PRN PRN Reason: CRAVING Ondansetron HCl (Zofran Inj*) 4 mg IV Q6H PRN PRN Reason: NAUSEA Last Admin: 03/03/17 05:56 Dose: 4 mg Pantoprazole Sodium (Protonix Tab (Nf)) 40 mg PO BID [facility] Last Admin: 03/03/17 09:09 Dose: 40 mg Paroxetine HCl (Paxil Tab*) 30 mg PO BEDTIME [facility] Last Admin: 03/02/17 20:38 Dose: 30 mg Polyethylene Glycol/Electrolytes (Miralax*) 17 gm PO DAILY PRN PRN Reason: CONSTIPATION Potassium Chloride (Klor Con Er Tab*) 20 meq PO TID [facility] Last Admin: 03/03/17 08:23 Dose: 20 meq Vital Signs - 8 hr 03/03/17 03/03/17 03/03/17 04:29 07:46 08:00 Temperature 97.4 F 97.8 F Pulse Rate 66 77 Respiratory 16 20 16 Rate Blood Pressure 97/56 100/55 (mmHg) O2 Sat by Pulse 97 94 Oximetry Oxygen Devices in Use Now: None Appearance: Female patient, sitting up in bed, NAD Eyes: No Scleral Icterus Ears/Nose/Mouth/Throat: Clear Oropharnyx, Mucous Membranes Moist Neck: NL Appearance and Movements; NL JVP Respiratory: Symmetrical Chest Expansion and Respiratory Effort, Clear to Auscultation Cardiovascular: NL Sounds; No Murmurs; No JVD, RRR Abdominal: NL Sounds; No Tenderness; No Distention Extremities: - - 2+ pitting edema to BLE Neurological: Alert and Oriented x 3, NL Muscle Strength and Tone Lines/Tubes/Other Access: Clean, Dry and Intact Peripheral IV Nutrition: Taking PO's Result Diagrams: 03/02/17 05:22 03/02/17 05:22 Additional Lab and Data: Lab Results 03/01/17 03/01/17 03/01/17 Range/Units 10:45 10:45 10:45 WBC 6.5 (3.5-10.8) 10^3/ul RBC 3.11 L (4.0-5.4) 10^6/ul Hgb 9.4 L (12.0-16.0) g/dl Hct 27 L (35-47) % MCV 88 (80-97) fL MCH 30 (27-31) pg MCHC 34 (31-36) g/dl RDW 15 (10.5-15) % Plt Count 244 (150-450) 10^3/ul MPV 8 (7.4-10.4) um3 Neut % (Auto) 87.2 H (38-83) % Lymph % (Auto) 4.8 L (25-47) % [place] % (Auto) 4.9 (1-9) % Eos % (Auto) 2.3 (0-6) % Baso % (Auto) 0.8 (0-2) % Absolute Neuts (auto) 5.7 (1.5-7.7) 10^3/ul Absolute Lymphs (auto) 0.3 L (1.0-4.8) 10^3/ul Absolute Monos (auto) 0.3 (0-0.8) 10^3/ul Absolute Eos (auto) 0.2 (0-0.6) 10^3/ul Absolute Basos (auto) 0.1 (0-0.2) 10^3/ul Absolute Nucleated RBC 0 10^3/ul Nucleated RBC % 0 D-Dimer, Quantitative (Less Than 230) ng/mL Sodium 130 L (133-145) mmol/L Potassium 3.3 L (3.5-5.0) mmol/L Chloride 90 L (101-111) mmol/L Carbon Dioxide 28 (22-32) mmol/L Anion Gap 12 H (2-11) mmol/L BUN 119 H (6-24) mg/dL Creatinine 4.48 H (0.51-0.95) mg/dL Est GFR ( Amer) 12.7 (>60) Est GFR (Non-Af Amer) 9.9 (>60) BUN/Creatinine Ratio 26.6 H (8-20) Glucose 336 H (70-100) mg/dL Lactic Acid (0.5-2.0) mmol/L Calcium 8.2 L (8.6-10.3) mg/dL Total Bilirubin 0.90 (0.2-1.0) mg/dL AST 27 (13-39) U/L ALT 38 (7-52) U/L Alkaline Phosphatase 303 H (34-104) U/L Troponin I 0.04 H* (<0.04) ng/mL B-Natriuretic Peptide 4201 H ( - 100) pg/mL Total Protein 6.1 L (6.4-8.9) g/dL Albumin 3.2 (3.2-5.2) g/dL Globulin 2.9 (2-4) g/dL Albumin/Globulin Ratio 1.1 (1-3) Influenza A (Rapid) (Negative) Influenza B (Rapid) (Negative) 03/01/17 03/01/17 03/01/17 Range/Units 10:45 10:45 12:02 WBC (3.5-10.8) 10^3/ul RBC (4.0-5.4) 10^6/ul Hgb (12.0-16.0) g/dl Hct (35-47) % MCV (80-97) fL MCH (27-31) pg MCHC (31-36) g/dl RDW (10.5-15) % Plt Count (150-450) 10^3/ul MPV (7.4-10.4) um3 Neut % (Auto) (38-83) % Lymph % (Auto) (25-47) % [place] % (Auto) (1-9) % Eos % (Auto) (0-6) % Baso % (Auto) (0-2) % Absolute Neuts (auto) (1.5-7.7) 10^3/ul Absolute Lymphs (auto) (1.0-4.8) 10^3/ul Absolute Monos (auto) (0-0.8) 10^3/ul Absolute Eos (auto) (0-0.6) 10^3/ul Absolute Basos (auto) (0-0.2) 10^3/ul Absolute Nucleated RBC 10^3/ul Nucleated RBC % D-Dimer, Quantitative 570 H (Less Than 230) ng/mL Sodium (133-145) mmol/L Potassium (3.5-5.0) mmol/L Chloride (101-111) mmol/L Carbon Dioxide (22-32) mmol/L Anion Gap (2-11) mmol/L BUN (6-24) mg/dL Creatinine (0.51-0.95) mg/dL Est GFR ( Amer) (>60) Est GFR (Non-Af Amer) (>60) BUN/Creatinine Ratio (8-20) Glucose (70-100) mg/dL Lactic Acid 1.1 (0.5-2.0) mmol/L Calcium (8.6-10.3) mg/dL Total Bilirubin (0.2-1.0) mg/dL AST (13-39) U/L ALT (7-52) U/L Alkaline Phosphatase (34-104) U/L Troponin I (<0.04) ng/mL B-Natriuretic Peptide ( - 100) pg/mL Total Protein (6.4-8.9) g/dL Albumin (3.2-5.2) g/dL Globulin (2-4) g/dL Albumin/Globulin Ratio (1-3) Influenza A (Rapid) Negative (Negative) Influenza B (Rapid) Negative (Negative) Assess/Plan/Problems-Billing Assessment: Ms. Santana is a 66 yo female with a PMH of CAD, ischemic cardiomyopathy with EF 25-30%, chronic systolic HF, DM, CKD stage 4, hypothyroidism, depression, GERD, and PVD who presented to the ED on 03/01/17 with concern for shortness of breath, poor appetite, and bilateral lower extremity edema. - Patient Problems (1) Acute on chronic systolic (congestive) heart failure Code(s): I50.23 - ACUTE ON CHRONIC SYSTOLIC (CONGESTIVE) HEART FAILURE Comment : In acute exacerbation, appears secondary to recent illness Orthopnea improved after IV furosemide, but no weight loss Baseline weight is 165lbs, per the patient Denies dietary indiscretions or medication non-compliance Continue metolazone, IV furosemide Daily weights, I/O (2) Cardiomyopathy Code(s): I42.9 - CARDIOMYOPATHY, UNSPECIFIED Comment: History of ischemic cardiomyopathy Last echo showed EF 25-30%, EF 20-25% with worsening diastolic function Continue with IV furosemide and metolazone, home carvedilol Patient has ICD/pacemaker Discussed with patient that she will need close cardiology follow-up Outpatient [employer] is Dr. Snell ([facility] cardiology) (3) Chronic kidney disease, stage IV (severe) Code(s): N18.4 - CHRONIC KIDNEY DISEASE, STAGE 4 (SEVERE) Comment: Creatinine appears to be within baseline Avoid nephrotoxic agents Trend BMP closely while utilizing IV diuretics Discussed with Dr. Beasley who will see patient in outpatient office (4) Elevated troponin Code(s): R79.89 - OTHER SPECIFIED ABNORMAL FINDINGS OF BLOOD CHEMISTRY Comment : Trop 0.04, denies CP Suspect demand ischemia from CHF exacerbation. (5) CAD (coronary artery disease) Code(s): I25.10 - ATHSCL HEART DISEASE OF [place] CORONARY ARTERY W/O ANG PCTRS Comment: Asymptomatic elevation in trop, suspect demand ischemia. Continue carvedilol, atorvastatin, isosorbde, and aspirin. (6) Hypertension Code(s): I10 - ESSENTIAL (PRIMARY) HYPERTENSION Comment: SBP 90s-100s. Hydralazine held Continue carvedilol, amlodipine with hold parameters (7) Hypothyroid Code(s): E03.9 - HYPOTHYROIDISM, UNSPECIFIED Comment: Continue current dose of levothyroxine. (8) Peripheral vascular disease Code(s): I73.9 - PERIPHERAL VASCULAR DISEASE, UNSPECIFIED Comment: Continue ASA, statin, cilostazol. (9) Type II diabetes mellitus Comment: BG mostly controlled Continue Lispro SSI and Lantus [place] home oral hypoglycemics (10) Depression Code(s): F32.9 - MAJOR DEPRESSIVE DISORDER, SINGLE EPISODE, UNSPECIFIED Comment: With anxiety Continue paroxetine. (11) Hyperlipidemia Code(s): E78.5 - HYPERLIPIDEMIA, UNSPECIFIED Comment: Continue atorvastatin. (12) Tobacco abuse Code(s): Z72.0 - TOBACCO USE Comment: Smoking cessation education PRN nicotine inhaler (13) DVT prophylaxis Current Visit: No Status: Acute Code(s): NDG9807 - SNOMED Code(s): 517854303 Comment: SQ heparin Status and Disposition: OBV admit. D/c to home when medically stable.
[2017-03-03] MEDS ORDERED: Furosemide IV* 10 MG/ML 2 ML VIAL (20 MG) IV SLOW PU ONE (16:47)
[2017-03-03] MEDS: Atorvastatin* 40 MG TAB PO SCH (17:01)
[2017-03-03] MEDS: PARoxetine HCL TAB* 10 MG PO SCH (22:31)
[2017-03-03] MEDS: Insulin GLARGINE(*) 1 UNITS UNIT SUBCUT SCH (22:32)
[2017-03-04] MEDS: Heparin VIAL(*) 5000 UNITS/ML VIAL (FIVE THOUSAND) SUBCUT SCH ×3 (05:27→21:22)
[2017-03-04] MEDS: Levothyroxine TAB* 100 MCG TAB PO SCH (05:27)
[2017-03-04] MEDS: amLODIPine TAB* 5 MG PO SCH (08:06)
[2017-03-04] MEDS: Carvedilol TAB* 25 MG PO SCH ×2 (08:06→21:21)
[2017-03-04] MEDS ORDERED: Metolazone TAB* 5 MG PO SCH (08:07)
[2017-03-04 08:36] LABS: ABS Basophils 0.1 10^3/ul (0-0.2); ABS Eosinophils 0.1 10^3/ul (0-0.6); ABS Lymphocytes 0.3 10^3/ul (1.0-4.8); ABS Monocytes 0.4 10^3/ul (0-0.8); ABS Neutrophils 4.4 10^3/ul (1.5-7.7); ABS Nucleated RBC 0 10^3/ul; Hematocrit 26 % (35-47); Hemoglobin 9.1 g/dl (12.0-16.0); Lymphocyte % 5.1 % (25-47); Mean Corpuscular HGB Conc 35 g/dl (31-36); Mean Corpuscular Hemoglobin 31 pg (27-31); Mean Corpuscular Volume 89 fL (80-97); Mean Platelet Volume 8 um3 (7.4-10.4); Nucleated Red Blood Cells % 0; Platelet Count 255 10^3/ul (150-450); Red Blood Count 2.95 10^6/ul (4.0-5.4); Red Cell Distribution Width 15 % (10.5-15); White Blood Count 5.2 10^3/ul (3.5-10.8)
[2017-03-04 08:49] LABS: EGFR Non-African American 10.1 (>60)
[2017-03-04] MEDS ORDERED: Bumetanide IV* 0.25 MG/ML 4 ML VIAL SLOW PUSH ONE (09:00)
[2017-03-04] MEDS ORDERED: Furosemide IV* 10 MG/ML VIAL (40 MG) IV SLOW PU ONE (09:00)
[2017-03-04] MEDS: Metolazone TAB* 5 MG PO SCH (09:06)
[2017-03-04] MEDS: Potassium Chlor TAB* 20 MEQ TAB.ER PO SCH ×3 (09:06→21:21)
[2017-03-04] MEDS: Insulin LISPRO* 1 UNITS UNIT SUBCUT SCH ×4 (09:06→21:22)
[2017-03-04] MEDS: CMCS:Pantoprazole TAB (NF) 40 MG TAB PO SCH ×2 (09:06→21:21)
[2017-03-04] MEDS: Aspirin EC Low Dose* 81 MG TAB.EC PO SCH (09:06)
[2017-03-04] MEDS: Isosorbide Mononitrate ER TAB* 30 MG PO SCH (09:06)
[2017-03-04] MEDS: Cilostazol TAB* 100 MG PO SCH ×2 (09:06→21:20)
[2017-03-04] MEDS ORDERED: Furosemide IV* 10 MG/ML 10 ML VIAL (100 MG) ONE (10:00)
--- NOTE | 2017-03-04 12:32 | PN ---
Subjective Date of Service: 03/04/17 Interval History: Patient seen and examined at bedside. She is OOB to chair and has been ambulating around the unit. Denies chest pain but does endorse worsening edema to BLE. Orthopnea reportedly improving, no O2 requirements. Patient is up almost 2lbs since admission and has not diuresed much. Tele: SR [id number] Family History: Unchanged from Admission Social History: Unchanged from Admission Past Medical History: Unchanged from Admission Objective Active Medications: Albuterol (Ventolin Hfa Inhaler*) 2 puff INH Q4H PRN PRN Reason: SOB/WHEEZING Last Admin: 03/01/17 20:48 Dose: 2 puff Amlodipine Besylate (Norvasc Tab*) 5 mg PO DAILY [facility] Last Admin: 03/04/17 08:06 Dose: Not Given Aspirin (Aspirin Ec Low Dose*) 81 mg PO DAILY [facility] Last Admin: 03/04/17 09:06 Dose: 81 mg Atorvastatin Calcium (Lipitor*) 40 mg PO 1700 [facility] Last Admin: 03/03/17 17:01 Dose: 40 mg Carvedilol (Coreg Tab*) 12.5 mg PO BID [facility] Last Admin: 03/04/17 08:06 Dose: Not Given Cilostazol (Pletal Tab*) 100 mg PO BID [facility] Last Admin: 03/04/17 09:06 Dose: 100 mg Device (Nicotine Mouth Piece*) 1 each INH .USE WITH NICOTROL PRN PRN Reason: CRAVING Dextrose (D50w Syringe 50 Ml*) 12.5 gm IV PUSH .FOR FS < 60 - SS PRN PRN Reason: FS < 60 Guaifenesin (Robitussin*) 5 ml PO Q6H PRN PRN Reason: COUGH Heparin Sodium (Porcine) (Heparin Vial(*)) 5,000 units SUBCUT Q8HR [facility] Last Admin: 03/04/17 05:27 Dose: 5,000 units Insulin Glargine (Lantus(*)) 20 units SUBCUT BEDTIME [facility] Last Admin: 03/03/17 22:32 Dose: 20 units Insulin Human Lispro (Humalog*) 0 - 10 units SUBCUT ACHS [facility] PRN Reason: Protocol Last Admin: 03/04/17 12:30 Dose: 4 units Isosorbide Mononitrate (Imdur Er Tab*) 30 mg PO DAILY [facility] Last Admin: 03/04/17 09:06 Dose: 30 mg Levothyroxine Sodium (Synthroid Tab*) 100 mcg PO DAILY@0600 [facility] Last Admin: 03/04/17 05:27 Dose: 100 mcg Magnesium Hydroxide (Milk Of Magnesia Liq*) 30 ml PO Q6H PRN PRN Reason: CONSTIPATION Last Admin: 03/03/17 03:43 Dose: 30 ml Metolazone (Zaroxolyn Tab*) 5 mg PO DAILY [facility] Last Admin: 03/04/17 09:06 Dose: 5 mg Nicotine (Nicotine Inhaler*) 10 mg INH Q2H PRN PRN Reason: CRAVING Ondansetron HCl (Zofran Inj*) 4 mg IV Q6H PRN PRN Reason: NAUSEA Last Admin: 03/03/17 05:56 Dose: 4 mg Pantoprazole Sodium (Protonix Tab (Nf)) 40 mg PO BID [facility] Last Admin: 03/04/17 09:06 Dose: 40 mg Paroxetine HCl (Paxil Tab*) 30 mg PO BEDTIME [facility] Last Admin: 03/03/17 22:31 Dose: 30 mg Polyethylene Glycol/Electrolytes (Miralax*) 17 gm PO DAILY PRN PRN Reason: CONSTIPATION Potassium Chloride (Klor Con Er Tab*) 20 meq PO TID [facility] Last Admin: 03/04/17 09:06 Dose: 20 meq Vital Signs - 8 hr 03/04/17 03/04/17 03/04/17 07:23 08:00 11:26 Temperature 98.2 F 97.5 F Pulse Rate 63 65 Respiratory 18 16 18 Rate Blood Pressure 93/46 98/56 (mmHg) O2 Sat by Pulse 94 99 Oximetry Oxygen Devices in Use Now: None Appearance: Female patient, OOB to chair, NAD Eyes: No Scleral Icterus Ears/Nose/Mouth/Throat: Clear Oropharnyx, Mucous Membranes Moist Neck: NL Appearance and Movements; NL JVP Respiratory: Symmetrical Chest Expansion and Respiratory Effort, Clear to Auscultation, - - diminished Cardiovascular: NL Sounds; No Murmurs; No JVD, RRR Abdominal: NL Sounds; No Tenderness; No Distention Extremities: - - 3+ pitting edema to BLE Neurological: Alert and Oriented x 3, NL Muscle Strength and Tone Lines/Tubes/Other Access: Clean, Dry and Intact Peripheral IV Nutrition: Taking PO's Result Diagrams: 03/04/17 08:18 03/04/17 08:18 Additional Lab and Data: Lab Results 03/01/17 03/01/17 03/01/17 Range/Units 10:45 10:45 10:45 WBC 6.5 (3.5-10.8) 10^3/ul RBC 3.11 L (4.0-5.4) 10^6/ul Hgb 9.4 L (12.0-16.0) g/dl Hct 27 L (35-47) % MCV 88 (80-97) fL MCH 30 (27-31) pg MCHC 34 (31-36) g/dl RDW 15 (10.5-15) % Plt Count 244 (150-450) 10^3/ul MPV 8 (7.4-10.4) um3 Neut % (Auto) 87.2 H (38-83) % Lymph % (Auto) 4.8 L (25-47) % Waller % (Auto) 4.9 (1-9) % Eos % (Auto) 2.3 (0-6) % Baso % (Auto) 0.8 (0-2) % Absolute Neuts (auto) 5.7 (1.5-7.7) 10^3/ul Absolute Lymphs (auto) 0.3 L (1.0-4.8) 10^3/ul Absolute Monos (auto) 0.3 (0-0.8) 10^3/ul Absolute Eos (auto) 0.2 (0-0.6) 10^3/ul Absolute Basos (auto) 0.1 (0-0.2) 10^3/ul Absolute Nucleated RBC 0 10^3/ul Nucleated RBC % 0 D-Dimer, Quantitative (Less Than 230) ng/mL Sodium 130 L (133-145) mmol/L Potassium 3.3 L (3.5-5.0) mmol/L Chloride 90 L (101-111) mmol/L Carbon Dioxide 28 (22-32) mmol/L Anion Gap 12 H (2-11) mmol/L BUN 119 H (6-24) mg/dL Creatinine 4.48 H (0.51-0.95) mg/dL Est GFR ( Amer) 12.7 (>60) Est GFR (Non-Af Amer) 9.9 (>60) BUN/Creatinine Ratio 26.6 H (8-20) Glucose 336 H (70-100) mg/dL Lactic Acid (0.5-2.0) mmol/L Calcium 8.2 L (8.6-10.3) mg/dL Total Bilirubin 0.90 (0.2-1.0) mg/dL AST 27 (13-39) U/L ALT 38 (7-52) U/L Alkaline Phosphatase 303 H (34-104) U/L Troponin I 0.04 H* (<0.04) ng/mL B-Natriuretic Peptide 4201 H ( - 100) pg/mL Total Protein 6.1 L (6.4-8.9) g/dL Albumin 3.2 (3.2-5.2) g/dL Globulin 2.9 (2-4) g/dL Albumin/Globulin Ratio 1.1 (1-3) Influenza A (Rapid) (Negative) Influenza B (Rapid) (Negative) 03/01/17 03/01/17 03/01/17 Range/Units 10:45 10:45 12:02 WBC (3.5-10.8) 10^3/ul RBC (4.0-5.4) 10^6/ul Hgb (12.0-16.0) g/dl Hct (35-47) % MCV (80-97) fL MCH (27-31) pg MCHC (31-36) g/dl RDW (10.5-15) % Plt Count (150-450) 10^3/ul MPV (7.4-10.4) um3 Neut % (Auto) (38-83) % Lymph % (Auto) (25-47) % Waller % (Auto) (1-9) % Eos % (Auto) (0-6) % Baso % (Auto) (0-2) % Absolute Neuts (auto) (1.5-7.7) 10^3/ul Absolute Lymphs (auto) (1.0-4.8) 10^3/ul Absolute Monos (auto) (0-0.8) 10^3/ul Absolute Eos (auto) (0-0.6) 10^3/ul Absolute Basos (auto) (0-0.2) 10^3/ul Absolute Nucleated RBC 10^3/ul Nucleated RBC % D-Dimer, Quantitative 570 H (Less Than 230) ng/mL Sodium (133-145) mmol/L Potassium (3.5-5.0) mmol/L Chloride (101-111) mmol/L Carbon Dioxide (22-32) mmol/L Anion Gap (2-11) mmol/L BUN (6-24) mg/dL Creatinine (0.51-0.95) mg/dL Est GFR ( Amer) (>60) Est GFR (Non-Af Amer) (>60) BUN/Creatinine Ratio (8-20) Glucose (70-100) mg/dL Lactic Acid 1.1 (0.5-2.0) mmol/L Calcium (8.6-10.3) mg/dL Total Bilirubin (0.2-1.0) mg/dL AST (13-39) U/L ALT (7-52) U/L Alkaline Phosphatase (34-104) U/L Troponin I (<0.04) ng/mL B-Natriuretic Peptide ( - 100) pg/mL Total Protein (6.4-8.9) g/dL Albumin (3.2-5.2) g/dL Globulin (2-4) g/dL Albumin/Globulin Ratio (1-3) Influenza A (Rapid) Negative (Negative) Influenza B (Rapid) Negative (Negative) Assess/Plan/Problems-Billing Assessment: Ms. Santana is a 66 yo female with a PMH of CAD, ischemic cardiomyopathy with EF 25-30%, chronic systolic HF, DM, CKD stage 4, hypothyroidism, depression, GERD, and PVD who presented to the ED on 03/01/17 with concern for shortness of breath, poor appetite, and bilateral lower extremity edema. - Patient Problems (1) Acute on chronic systolic (congestive) heart failure Code(s): I50.23 - ACUTE ON CHRONIC SYSTOLIC (CONGESTIVE) HEART FAILURE Comment : In acute exacerbation, appears secondary to recent illness and chronic renal failure Orthopnea improved after IV furosemide, but persistent weight gain and edema Plan for IV furosemide 100 mg today (IV bumetanide not available) Baseline weight is 165lbs, per the patient Denies dietary indiscretions or medication non-compliance Appreciate cardiology consult Continue metolazone, IV furosemide Daily weights, I/O (2) Cardiomyopathy Code(s): I42.9 - CARDIOMYOPATHY, UNSPECIFIED Comment: History of ischemic cardiomyopathy Last echo showed EF 25-30%, EF 20-25% with worsening diastolic function Continue with IV furosemide and metolazone, home carvedilol Patient has ICD/pacemaker Discussed with patient that she will need close cardiology follow-up Outpatient cleaner signs is Dr. Snell ([facility] cardiology) (3) Chronic kidney disease, stage IV (severe) Code(s): N18.4 - CHRONIC KIDNEY DISEASE, STAGE 4 (SEVERE) Comment: Creatinine progressive worsening Appreciate nephrology consult Avoid nephrotoxic agents Trend BMP closely while utilizing IV diuretics (4) Elevated troponin Code(s): R79.89 - OTHER SPECIFIED ABNORMAL FINDINGS OF BLOOD CHEMISTRY Comment : Trop 0.04, denies CP Suspect demand ischemia from CHF exacerbation. (5) CAD (coronary artery disease) Code(s): I25.10 - ATHSCL HEART DISEASE OF [place] CORONARY ARTERY W/O ANG PCTRS Comment: Asymptomatic elevation in trop, suspect demand ischemia. Continue carvedilol, atorvastatin, isosorbide, and aspirin. (6) Hypertension Code(s): I10 - ESSENTIAL (PRIMARY) HYPERTENSION Comment: SBP 90s-100s. Hydralazine and amlodipine held Continue carvedilol and IV furosemide (7) Hypothyroid Code(s): E03.9 - HYPOTHYROIDISM, UNSPECIFIED Comment: Continue current dose of levothyroxine. (8) Peripheral vascular disease Code(s): I73.9 - PERIPHERAL VASCULAR DISEASE, UNSPECIFIED Comment: Continue ASA, statin, cilostazol. (9) Type II diabetes mellitus Comment: BG mostly controlled Continue Lispro SSI and Lantus [place] home oral hypoglycemics (10) Depression Code(s): F32.9 - MAJOR DEPRESSIVE DISORDER, SINGLE EPISODE, UNSPECIFIED Comment: With anxiety Continue paroxetine. (11) Hyperlipidemia Code(s): E78.5 - HYPERLIPIDEMIA, UNSPECIFIED Comment: Continue atorvastatin. (12) Tobacco abuse Code(s): Z72.0 - TOBACCO USE Comment: Smoking cessation education PRN nicotine inhaler (13) DVT prophylaxis Current Visit: No Status: Acute Code(s): IUP3799 - SNOMED Code(s): 982559850 Comment: SQ heparin Status and Disposition: Inpatient admit. Extended LOS secondary to CHF and renal failure.
--- NOTE | 2017-03-04 13:30 | CONSULT ---
Subjective Date of Service: 03/04/17 Interval History: Admission Date: 03/02/17 Consult date 03/04/2017 Provider: Hospitalist PRIMARY CARE PROVIDER: Dr. Logan Valdez. Physical Science Professor in [place], Dr. Snell CHIEF COMPLAINT: Shortness of breath, constipation, abdominal swelling, lower extremity swelling. Reason for consult: Diuretic refractory volume overload HISTORY OF PRESENT ILLNESS: Ms. 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 She was found with a BUN of 120 and has not responded to high dose IV diuretics. She denies any CP, palpitations or syncope. PAST MEDICAL HISTORY: 1. Coronary artery disease, status post myocardial infarction. 2. Ischemic cardiomyopathy with last known EF of 25% to 30%. 3. Chronic diastolic heart failure. 4. Melanoma. 5. Hyperlipidemia. 6. Diabetes mellitus. 7. Chronic kidney disease, stage 4. 8. GERD. 9. Depression. 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 11. Peripheral arterial disease. 12. Hypothyroidism. PAST SURGICAL HISTORY: 1. Status post section x2. 2. Status post cholecystectomy. 3. Status post ovarian cyst excision. 4. Status post cardiac stenting x2. 5. Status post excision of melanoma. 6. Status post tonsillectomy. 7. Status post appendectomy. 8. Status post ICD and pacer placement. ALLERGIES: PENICILLIN V and SULFA. FAMILY HISTORY: The patient's mother and father had history of coronary artery disease in their 80s. Her brother has a history of mitral valve prolapse. The patient's mother also has a history of diabetes mellitus. She denies any family history of cancer. SOCIAL HISTORY: The patient is a current smoker, smoking approximately half a pack a day. She smoked for approximately the last 45 years. She denies any alcohol or recreational drug use. 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 Her , Jerome, will be her surrogate decision maker in the event she is unable to make decisions for herself. Medications Active Medications: Albuterol (Ventolin Hfa Inhaler*) 2 puff INH Q4H PRN PRN Reason: SOB/WHEEZING Last Admin: 03/01/17 20:48 Dose: 2 puff Amlodipine Besylate (Norvasc Tab*) 5 mg PO DAILY [facility] Last Admin: 03/04/17 08:06 Dose: Not Given Aspirin (Aspirin Ec Low Dose*) 81 mg PO DAILY [facility] Last Admin: 03/04/17 09:06 Dose: 81 mg Atorvastatin Calcium (Lipitor*) 40 mg PO 1700 [facility] Last Admin: 03/03/17 17:01 Dose: 40 mg Carvedilol (Coreg Tab*) 12.5 mg PO BID [facility] Last Admin: 03/04/17 08:06 Dose: Not Given Cilostazol (Pletal Tab*) 100 mg PO BID [facility] Last Admin: 03/04/17 09:06 Dose: 100 mg Device (Nicotine Mouth Piece*) 1 each INH .USE WITH NICOTROL PRN PRN Reason: CRAVING Dextrose (D50w Syringe 50 Ml*) 12.5 gm IV PUSH .FOR FS < 60 - SS PRN PRN Reason: FS < 60 Guaifenesin (Robitussin*) 5 ml PO Q6H PRN PRN Reason: COUGH Heparin Sodium (Porcine) (Heparin Vial(*)) 5,000 units SUBCUT Q8HR [facility] Last Admin: 03/04/17 13:08 Dose: 5,000 units Insulin Glargine (Lantus(*)) 20 units SUBCUT BEDTIME [facility] Last Admin: 03/03/17 22:32 Dose: 20 units Insulin Human Lispro (Humalog*) 0 - 10 units SUBCUT ACHS [facility] PRN Reason: Protocol Last Admin: 03/04/17 12:30 Dose: 4 units Isosorbide Mononitrate (Imdur Er Tab*) 30 mg PO DAILY [facility] Last Admin: 03/04/17 09:06 Dose: 30 mg Levothyroxine Sodium (Synthroid Tab*) 100 mcg PO DAILY@0600 [facility] Last Admin: 03/04/17 05:27 Dose: 100 mcg Magnesium Hydroxide (Milk Of Magnesia Liq*) 30 ml PO Q6H PRN PRN Reason: CONSTIPATION Last Admin: 03/03/17 03:43 Dose: 30 ml Metolazone (Zaroxolyn Tab*) 5 mg PO DAILY [facility] Last Admin: 03/04/17 09:06 Dose: 5 mg Nicotine (Nicotine Inhaler*) 10 mg INH Q2H PRN PRN Reason: CRAVING Ondansetron HCl (Zofran Inj*) 4 mg IV Q6H PRN PRN Reason: NAUSEA Last Admin: 03/03/17 05:56 Dose: 4 mg Pantoprazole Sodium (Protonix Tab (Nf)) 40 mg PO BID [facility] Last Admin: 03/04/17 09:06 Dose: 40 mg Paroxetine HCl (Paxil Tab*) 30 mg PO BEDTIME [facility] Last Admin: 03/03/17 22:31 Dose: 30 mg Polyethylene Glycol/Electrolytes (Miralax*) 17 gm PO DAILY PRN PRN Reason: CONSTIPATION Potassium Chloride (Klor Con Er Tab*) 20 meq PO TID [facility] Last Admin: 03/04/17 13:08 Dose: 20 meq Has received in excess of 200 mg of IV lasix since admission Home Medications: Levothyroxine TAB* [Synthroid 100 MCG TAB*] 100 mcg PO QAM 09/14/12 [History Confirmed 03/01/17] PARoxetine HCL TAB* [Paxil TAB*] 30 mg PO BEDTIME 09/14/12 [History Confirmed ] glipiZIDE TAB* [Glucotrol TAB*] 10 mg PO BID 09/14/12 [History Confirmed ] Carvedilol TAB* [Coreg TAB*] 12.5 mg PO BID 04/12/14 [History Confirmed 03/01/17 ] Nitroglycerin [Nitrostat] 0.4 mg SL SEE INSTRUCTIONS PRN 04/12/14 [History Confirmed 03/01/17] Sitagliptin Phosphate [Januvia] 50 mg PO DAILY 03/14/15 [History Confirmed 03/01] Isosorbide Mononitrate ER TAB* [Imdur ER TAB*] 30 mg PO DAILY #30 tab.er [Rx Confirmed 03/01/17] hydrALAZINE TAB* [Apresoline TAB*] 25 mg PO TID #90 tab 03/15/15 [Rx Confirmed 03/01/17] Atorvastatin* [Lipitor 40 MG*] 40 mg PO 1700 #30 tab 08/16/16 [Rx Confirmed 04/17] Albuterol HFA INHALER* [Ventolin HFA Inhaler*] 1 - 2 puff INH Q4H PRN #1 mdi 07/14 [Rx Confirmed 03/01/17] Aspirin [Aspirin 81 MG TAB] 81 mg PO DAILY 10/02/16 [History Confirmed 03/01/17] Bumetanide TAB* [Bumex 2 MG TAB*] 2 mg PO BID 10/02/16 [History Confirmed ] Insulin GLARGINE(*) [Lantus(*)] 20 units SUBCUT BEDTIME 10/02/16 [History Confirmed 03/01/17] Pantoprazole TAB (NF) [Protonix TAB (NF)] 40 mg PO BID 10/02/16 [History Confirmed 03/01/17] amLODIPine TAB* [Norvasc 5 mg TAB*] 5 mg PO DAILY 10/02/16 [History Confirmed ] Metolazone TAB* [Zaroxolyn TAB*] 5 mg PO DAILY 01/20/17 [History Confirmed 03/01] Cilostazol TAB* [Pletal TAB*] 100 mg PO BID 03/02/17 [History Confirmed 03/02/17 ] Review of Systems - Measurements Intake and Output: Intake and Output Last 24 Hours 03/02/17 03/03/17 03/04/17 03/05/17 06:59 06:59 06:59 06:59 Intake Total 1780 900 520 Output Total 0 0 100 Balance 1780 900 420 Weight 178 lb 14.4 oz 179 lb 14.4 oz Intake: Oral 1780 900 520 Output: Urine 0 0 100 Other: Estimated Void Medium Medium # Bowel Movements 0 0 # Voids 2 0 1 - Review of Systems Constitutional Symptoms: Positive: Weight Gain, Weakness, Fatigue Dermatology: Negative: Rash, Skin Lesions HEENT: Negative: Change in Hearing, Vertigo Eyes: Negative: Change in Vision, Double Vision Thyroid: Negative: Tremor, Frequent Defecation, Constipation, Palpitations, Primary Hypothyroidism Pulmonary: Positive: Cough, Respiratory Distress, Shortness of Breath, Exercise Intolerance Negative: Sputum, Hemoptysis, Wheezing, COPD, Asthma, Home Oxygen Cardiology: Positive: Shortness of Breath, Swelling of Ankles, Edema Negative: Chest Pain, Palpitations, Faintness, Syncope, Claudication, Paroxysmal Nocturnal Dyspnea, Orthopnea Gastroenterology: Positive: Nausea Negative: Vomiting, Difficulty Swallowing, Heartburn, Constipation, Diarrhea , Blood in Stools, Change in Bowel Habits, Haematemesis, Melena Genital - Urinary: Negative: Dysuria, Hematuria Musculoskeletal: Negative: Joint Pain, Joint Stiffness, Arthritis, Osteoporosis Endocrinology: Positive: Normal, Diabetes Negative: Polydipsia, Polyuria Hematologic/Lymphatic: Positive: Anemia, Use of Antiplatelet Drugs Negative: Easy Brusing, Hx Leukemia, Hx Lymphoma, Use of Anticoagulant Neurology: Negative: Headaches, Migraines, Change in Vision, Diplopia, Dizziness, Change in Balancing, Change in Coordination, Change in Memory Psychiatry: Negative: Unusual Anxiety, Suicidal Ideation Allergic/Immunologic: Negative: Hx HIV, Immunocompromise, Swollen Glands Lymph Nodes Review of Systems Statement: All other review of systems negative, unless stated above. Objective Vital Signs: Temp Pulse Resp BP Pulse Ox 97.5 F 65 18 98/56 99 03/04/17 11:26 03/04/17 11:26 03/04/17 11:26 03/04/17 11:26 03/04/17 11:26 Oxygen Devices in Use Now: None Appearance: pleasant, nad Ears/Nose/Mouth/Throat: Clear Oropharnyx Neck: Trachea Midline, - - uncertain jvp Respiratory: Symmetrical Chest Expansion and Respiratory Effort, - - basilar crackles Cardiovascular: RRR - + s3, soft systolic murmur Abdominal: NL Sounds; No Tenderness; No Distention Extremities: - - 1-2+ edema Skin: No Rash or Ulcers Neurological: Alert and Oriented x 3 Laboratory Results: 03/04/17 08:18 03/04/17 08:18 Total Bilirubin 0.90 mg/dL (0.2-1.0) 03/01/17 10:45 AST 27 U/L (13-39) 03/01/17 10:45 ALT 38 U/L (7-52) 03/01/17 10:45 Alkaline Phosphatase 303 U/L (34-104) H 03/01/17 10:45 B-Natriuretic Peptide 4201 pg/mL (-100) H 03/01/17 10:45 Total Protein 6.1 g/dL (6.4-8.9) L 03/01/17 10:45 Albumin 3.2 g/dL (3.2-5.2) 03/01/17 10:45 Globulin 2.9 g/dL (2-4) 03/01/17 10:45 Albumin/Globulin Ratio 1.1 (1-3) 03/01/17 10:45 03/01/17 10:45 Troponin I 0.04 H* Diagnostic Imaging: Diagnostic Imaging: Cath 01/18/2014: LM: no significant disease ostial Lcx: 85%, mLcx 70% 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 Moderate LV dilation, LVEF 20%, mod severe MR, mod TR with severe pHTN cxr admission 03/01/2017: "pacemaker present" diffuse interstitial markings and small b/l effusion consistent with CHF Assessment/Plan Ms. Santana is a 66-year-old woman with ischemic cardiomyopathy and systolic heart failure presents with diuretic refractory volume overload in the setting of a BUN of 120 - Continue aspirin and statin - Continue coreg - Stop norvasc due to low BP (ordered) - Hydralazine held due to low BP - Continue imdur 30 mg for now now but if BP remains low can hold - Would check a baseline EKG - Dialysis is indicated and I would recommend this. Would defer further diuretics to Nephrology. - Once on dialysis would replace norvasc/hydralazine/imdur with an AceI - Please call with questions Thank you for allowing me to participate in the cardiovascular care of this patient. Please do not hesitate to contact me with questions or concerns.
[2017-03-04] MEDS ORDERED: ETHACRYNIC ACID 25 MG PO ONE (13:38)
[2017-03-04] MEDS: Furosemide IV* 100 MG in NS 0.9% 100 ML* 90 ML IV SCH (15:55)
--- NOTE | 2017-03-04 16:00 | PN ---
Hospitalist Progress Note Date of Service: 03/04/17 Patient seen by cardiology who recommended nephrology consult for dialysis. The patient was upset by this plan and called her equipment validation specialist, Dr. Snell, who kindly called to review plan of care. He recommended trial milrinone and furosemide gtts; plan reviewed with hospital cardiology team, who felt that with the patient's concurrent renal function, this would not be a sustainable or effective plan of care in our facility and that she would need to be at an Advanced Heart Failure facility with LVAD capabilities (nearest [facility]). Discussed these concerns with Dr. Snell, who agreed to accept patient for transfer to [facility]. He requested we begin a furosemide gtt in the interim period. Plan for yu catheter to closely monitor output. Transfer arrangements in progress. Additional 60 minutes of direct and indirect patient care time spent.
[2017-03-04] MEDS: Atorvastatin* 40 MG TAB PO SCH (17:08)
--- NOTE | 2017-03-04 20:43 | TRS ---
CC: Dr. Logan Valdez; Dr. Snell of [facility]; Dr. Phuc Del Angel ; Dr. Beasley * MEDICINE TRANSFER SUMMARY: DATE OF ADMISSION: 03/01/17 DATE OF TRANSFER: To be determined. PROVIDER: Tamra Gardner NP ATTENDING PHYSICIAN: Arlette Strong MD * (dictated by Tamra Gardner NP) CONSULTING PHYSICIANS: 1. Phuc Del Angel DO, Cardiology. 2. Butch Beasley MD, Nephrology. PRIMARY CARE PROVIDER: Dr. Logan Valdez. PRIMARY INSTALLATION HELPER: Dr. Tho Snell. ACCEPTING PHYSICIAN: Dr. Tho Snell. DIAGNOSTIC TESTING DURING THIS ADMISSION: 1. Venous Doppler study from 03/01/17. Study was that of the bilateral lower extremity veins and shows no right or left lower extremity deep vein thrombosis , presence of atherosclerosis. 2. Transthoracic echocardiogram from 03/02/17. Conclusion: The left ventricular chamber size is moderately dilated with mild left ventricular hypertrophy. There is global hypokinesis of the left ventricle with minor regional variation, the base moves best, apex appears akinetic. The estimated ejection fraction is 20%. The left ventricular diastolic filling pattern is restrictive. The right ventricular global systolic function is mildly reduced and chamber diameter mildly dilated. A pacemaker wire is visualized in the right ventricle. There is a trace of aortic regurgitation. There is moderate- to-severe mitral regurgitation. There is borderline mitral stenosis. There is moderate tricuspid regurgitation. There is evidence of [id number] pulmonary hypertension. The right ventricular systolic pressure is estimated at 51 mmHg. There is moderate pulmonic regurgitation. Compared with prior echo of 08/16/16, EF has decreased from 25% to 30%, diastolic filling has worsened from pseudonormal to restrictive pattern, RV dysfunction newly noted, trace AI newly noted, the degree of MR has increased from moderate, the degree of OH has increased from trace, elevated PA pressure newly noted (unable to estimate on prior study). HOSPITAL COURSE OF STAY: For full details, please refer to the H and P provided by Sandra Arriaga NP. In summary, Ms. Santana is a 66-year- old female who carries a history of ischemic cardiomyopathy with a last known EF of 25% to 30% and recurrent decompensated chronic diastolic heart failure as well as chronic kidney disease, stage 4 who presented to the ER with concern for lower extremity swelling, abdominal swelling, and general malaise for the past 3 weeks. The patient reported that she developed bronchitis just before Lis, was treated with doxycycline but due to GI side effects was transitioned to azithromycin. She continues to suffer from congestion and intermittent cough as well as poor appetite. She denied any dietary indiscretions and reports that she takes her medication as prescribed and has not missed any doses. Her BNP upon arrival was 4201 and she had a troponin of 0.04. Ms. Santana was admitted and started on IV furosemide and continued on her home metolazone. She did not diurese much and so she was increased on a daily basis on her IV diuretics with little diuresis. The patient's weight continued to trend upwards each day and she added on an additional 2 pounds of weight over the past 2 days. This is after she received high doses of IV diuretics. However, the patient does report improvement in her respiratory symptoms of orthopnea and PND following the administration of the IV furosemide. We were unable to do a CTA of her chest given her renal function, but her Dopplers were negative and the patient reported improvement with the diuretics, although she has not had significant weight loss or diuresis. At baseline, she reports her weight is supposed to be 165 but she is up to 180 pounds here. I did ask our picc nurse to review her records and chart while here and he expressed concern for her combined heart failure and chronic kidney disease and her refractory volume overload in the presence of IV diuretics. It was felt that the patient should receive dialysis given her diuretic refractory volume overload in the setting of a BUN of 120. Also of note, we had to stop her maintenance therapies of Norvasc and hydralazine due to hypotension. When discussed with the patient, she was upset over the possibility of having to start dialysis and contacted her primary picc nurse who recommended trialing milrinone and furosemide drips. However, our picc nurse felt that this would be the least optimal choice of treatment while here at [facility] that we have no advanced heart failure team and that the patient may need escalating therapies, which we cannot offer here. This would include potential need for LVAD and need to be at a center for cardiac transplant. He recommended transfer to [facility] where these therapies and treatment options are available. I did discuss this with the patient's picc nurse, Dr. Snell, who graciously agreed to accept the patient at [facility]. We are currently awaiting a bed for transfer. In the interim period, we have initiated a furosemide drip under the instruction of Dr. Snell, and the patient will be receiving a Nagy catheter, so we can accurately track her I 's and O's. I do anticipate the patient will likely need dialysis, but it is our hope that she can hopefully have some success on inotropic therapies and IV furosemide drip that would hopefully delay her need for hemodialysis. PRIMARY TRANSFER DIAGNOSES: 1. Acute on chronic systolic heart failure. 2. Ischemic cardiomyopathy with estimated EF of 20%. 3. Chronic kidney disease. 4. Diuretic refractory volume overload. SECONDARY DISCHARGE DIAGNOSES: 1. Coronary artery disease status post myocardial infarction. 2. Chronic diastolic heart failure. 3. Melanoma. 4. Hyperlipidemia. 5. Diabetes mellitus. 6. Gastroesophageal reflux disease. 7. Depression. 8. Duodenal lymphoma. 9. Peripheral arterial disease. 10. Hypothyroidism. MEDICATIONS AT TIME OF TRANSFER: 1. Albuterol inhaler 2 puffs inhaled q. 4 hours p.r.n. 2. Aspirin 81 mg daily. 3. Atorvastatin 40 mg q.p.m. 4. Carvedilol 12.5 mg b.i.d. 5. Pletal 100 mg b.i.d. 6. Nicotine inhaler q. 2 hours p.r.n. 7. Furosemide drip. Currently at 10 mg an hour, but to titrate up per the patient's intake and output. 8. Guaifenesin 5 mL q. 6 hours p.r.n. 9. Heparin 5000 units subcu q. 8 hours. 10. Lantus 20 units at bedtime. 11. Lispro sliding scale. 12. Imdur ER 30 mg daily. 13. Levothyroxine 100 mcg daily. 14. Milk of magnesia 30 mL q. 6 hours p.r.n. 15. Zaroxolyn 5 mg daily. 16. Zofran 4 mg q. 6 hours p.r.n. 17. Protonix 40 mg b.i.d. 18. Paroxetine 30 mg at bedtime. 19. MiraLAX 17 g daily p.r.n. 20. Potassium chloride 20 mEq t.i.d. Note that the patient also is on the home medications of bumetanide 2 mg b.i.d. as well as amlodipine 5 mg daily and hydralazine 25 mg t.i.d. These are being held secondary to low blood pressure. Please also note that the patient is on glipizide 10 mg b.i.d. and Januvia 50 mg daily for diabetes control at home. These have been held in place of the patient's insulin here in the hospital. DIET: Consistent carbohydrate, low-sodium diet. ACTIVITY: As tolerated. CONDITION: Guarded, but stable. DISPOSITION: To [facility]. TIME SPENT: Time spent on this transfer was approximately 60 minutes. Again, this is only a brief summary of the patient's hospital course of stay. For full details, please refer to the full medical record. If you have any further questions or need further assistance, please feel to contact me at [phone]. TAMRA GARDNER NP [id number]/[facility] #: [id number]
[2017-03-04] MEDS: PARoxetine HCL TAB* 10 MG PO SCH (21:20)
[2017-03-04] MEDS: Insulin GLARGINE(*) 1 UNITS UNIT SUBCUT SCH (21:22)
[2017-03-05] MEDS: Furosemide IV* 100 MG in NS 0.9% 100 ML* 90 ML IV SCH ×2 (03:12→12:27)
[2017-03-05] MEDS: Levothyroxine TAB* 100 MCG TAB PO SCH (06:04)
[2017-03-05] MEDS: Heparin VIAL(*) 5000 UNITS/ML VIAL (FIVE THOUSAND) SUBCUT SCH ×3 (06:04→21:31)
[2017-03-05] MEDS: Carvedilol TAB* 25 MG PO SCH ×2 (08:40→21:30)
[2017-03-05] MEDS: Metolazone TAB* 5 MG PO SCH (08:42)
[2017-03-05] MEDS: Potassium Chlor TAB* 20 MEQ TAB.ER PO SCH ×3 (08:43→21:30)
[2017-03-05] MEDS: Cilostazol TAB* 100 MG PO SCH ×2 (08:43→21:30)
[2017-03-05] MEDS: Isosorbide Mononitrate ER TAB* 30 MG PO SCH (08:43)
[2017-03-05] MEDS: Aspirin EC Low Dose* 81 MG TAB.EC PO SCH (08:43)
[2017-03-05] MEDS: Insulin LISPRO* 1 UNITS UNIT SUBCUT SCH ×4 (08:44→21:32)
[2017-03-05 10:26] LABS: EGFR Non-African American 10.8 (>60)
[2017-03-05] MEDS ORDERED: Furosemide IV* 10 MG/ML 10 ML VIAL (100 MG) ONE ×2 (11:31→21:19)
--- NOTE | 2017-03-05 11:34 | PN ---
Subjective Date of Service: 03/05/17 Interval History: Pt feels a little better. diuresed 950 ml at night on Lasix gtt Family History: Unchanged from Admission Social History: Unchanged from Admission Past Medical History: Unchanged from Admission Objective Active Medications: Albuterol (Ventolin Hfa Inhaler*) 2 puff INH Q4H PRN PRN Reason: SOB/WHEEZING Last Admin: 03/01/17 20:48 Dose: 2 puff Aspirin (Aspirin Ec Low Dose*) 81 mg PO DAILY [facility] Last Admin: 03/05/17 08:43 Dose: 81 mg Atorvastatin Calcium (Lipitor*) 40 mg PO 1700 [facility] Last Admin: 03/04/17 17:08 Dose: 40 mg Carvedilol (Coreg Tab*) 12.5 mg PO BID [facility] Last Admin: 03/05/17 08:40 Dose: 12.5 mg Cilostazol (Pletal Tab*) 100 mg PO BID [facility] Last Admin: 03/05/17 08:43 Dose: 100 mg Device (Nicotine Mouth Piece*) 1 each INH .USE WITH NICOTROL PRN PRN Reason: CRAVING Dextrose (D50w Syringe 50 Ml*) 12.5 gm IV PUSH .FOR FS < 60 - SS PRN PRN Reason: FS < 60 Guaifenesin (Robitussin*) 5 ml PO Q6H PRN PRN Reason: COUGH Heparin Sodium (Porcine) (Heparin Vial(*)) 5,000 units SUBCUT Q8HR [facility] Last Admin: 03/05/17 06:04 Dose: 5,000 units Furosemide 100 mg/ Sodium (Chloride) 100 mls @ 10 mls/hr IV Q10H [facility] PRN Reason: 10 MG/HR Last Admin: 03/05/17 03:12 Dose: 10 mls/hr Insulin Glargine (Lantus(*)) 20 units SUBCUT BEDTIME [facility] Last Admin: 03/04/17 21:22 Dose: 20 units Insulin Human Lispro (Humalog*) 0 - 10 units SUBCUT ACHS [facility] PRN Reason: Protocol Last Admin: 03/05/17 08:44 Dose: 2 units Isosorbide Mononitrate (Imdur Er Tab*) 30 mg PO DAILY [facility] Last Admin: 03/05/17 08:43 Dose: 30 mg Levothyroxine Sodium (Synthroid Tab*) 100 mcg PO DAILY@0600 [facility] Last Admin: 03/05/17 06:04 Dose: 100 mcg Magnesium Hydroxide (Milk Of Magnesia Liq*) 30 ml PO Q6H PRN PRN Reason: CONSTIPATION Last Admin: 03/03/17 03:43 Dose: 30 ml Metolazone (Zaroxolyn Tab*) 5 mg PO DAILY [facility] Last Admin: 03/05/17 08:42 Dose: 5 mg Nicotine (Nicotine Inhaler*) 10 mg INH Q2H PRN PRN Reason: CRAVING Ondansetron HCl (Zofran Inj*) 4 mg IV Q6H PRN PRN Reason: NAUSEA Last Admin: 03/03/17 05:56 Dose: 4 mg Pantoprazole Sodium (Protonix Tab (Nf)) 40 mg PO BID [facility] Last Admin: 03/04/17 21:21 Dose: 40 mg Paroxetine HCl (Paxil Tab*) 30 mg PO BEDTIME [facility] Last Admin: 03/04/17 21:20 Dose: 30 mg Polyethylene Glycol/Electrolytes (Miralax*) 17 gm PO DAILY PRN PRN Reason: CONSTIPATION Potassium Chloride (Klor Con Er Tab*) 20 meq PO TID [facility] Last Admin: 03/05/17 08:43 Dose: 20 meq Vital Signs - 8 hr 03/05/17 03/05/17 03/05/17 04:19 07:53 08:00 Temperature 98.5 F 97.3 F Pulse Rate 77 73 Respiratory 16 16 16 Rate Blood Pressure 100/54 103/53 (mmHg) O2 Sat by Pulse 90 91 Oximetry Oxygen Devices in Use Now: None Appearance: 66 yo F in nAD, AAOx3 Eyes: No Scleral Icterus, PERRLA Ears/Nose/Mouth/Throat: NL Teeth, Lips, Gums, Mucous Membranes Moist Neck: NL Appearance and Movements; NL JVP, Trachea Midline Respiratory: Symmetrical Chest Expansion and Respiratory Effort, Clear to Auscultation Cardiovascular: NL Sounds; No Murmurs; No JVD, RRR Abdominal: - - mild anasarca Lymphatic: No Cervical Adenopathy Extremities: No Clubbing, Cyanosis, - - b/l leg edema R>L Skin: No Rash or Ulcers, No Nodules or Sclerosis Neurological: Alert and Oriented x 3, NL Muscle Strength and Tone Result Diagrams: 03/04/17 08:18 03/05/17 09:06 Additional Lab and Data: Lab Results 03/01/17 03/01/17 03/01/17 Range/Units 10:45 10:45 10:45 WBC 6.5 (3.5-10.8) 10^3/ul RBC 3.11 L (4.0-5.4) 10^6/ul Hgb 9.4 L (12.0-16.0) g/dl Hct 27 L (35-47) % MCV 88 (80-97) fL MCH 30 (27-31) pg MCHC 34 (31-36) g/dl RDW 15 (10.5-15) % Plt Count 244 (150-450) 10^3/ul MPV 8 (7.4-10.4) um3 Neut % (Auto) 87.2 H (38-83) % Lymph % (Auto) 4.8 L (25-47) % Placer % (Auto) 4.9 (1-9) % Eos % (Auto) 2.3 (0-6) % Baso % (Auto) 0.8 (0-2) % Absolute Neuts (auto) 5.7 (1.5-7.7) 10^3/ul Absolute Lymphs (auto) 0.3 L (1.0-4.8) 10^3/ul Absolute Monos (auto) 0.3 (0-0.8) 10^3/ul Absolute Eos (auto) 0.2 (0-0.6) 10^3/ul Absolute Basos (auto) 0.1 (0-0.2) 10^3/ul Absolute Nucleated RBC 0 10^3/ul Nucleated RBC % 0 D-Dimer, Quantitative (Less Than 230) ng/mL Sodium 130 L (133-145) mmol/L Potassium 3.3 L (3.5-5.0) mmol/L Chloride 90 L (101-111) mmol/L Carbon Dioxide 28 (22-32) mmol/L Anion Gap 12 H (2-11) mmol/L BUN 119 H (6-24) mg/dL Creatinine 4.48 H (0.51-0.95) mg/dL Est GFR ( Amer) 12.7 (>60) Est GFR (Non-Af Amer) 9.9 (>60) BUN/Creatinine Ratio 26.6 H (8-20) Glucose 336 H (70-100) mg/dL Lactic Acid (0.5-2.0) mmol/L Calcium 8.2 L (8.6-10.3) mg/dL Total Bilirubin 0.90 (0.2-1.0) mg/dL AST 27 (13-39) U/L ALT 38 (7-52) U/L Alkaline Phosphatase 303 H (34-104) U/L Troponin I 0.04 H* (<0.04) ng/mL B-Natriuretic Peptide 4201 H ( - 100) pg/mL Total Protein 6.1 L (6.4-8.9) g/dL Albumin 3.2 (3.2-5.2) g/dL Globulin 2.9 (2-4) g/dL Albumin/Globulin Ratio 1.1 (1-3) Influenza A (Rapid) (Negative) Influenza B (Rapid) (Negative) 03/01/17 03/01/17 03/01/17 Range/Units 10:45 10:45 12:02 WBC (3.5-10.8) 10^3/ul RBC (4.0-5.4) 10^6/ul Hgb (12.0-16.0) g/dl Hct (35-47) % MCV (80-97) fL MCH (27-31) pg MCHC (31-36) g/dl RDW (10.5-15) % Plt Count (150-450) 10^3/ul MPV (7.4-10.4) um3 Neut % (Auto) (38-83) % Lymph % (Auto) (25-47) % Placer % (Auto) (1-9) % Eos % (Auto) (0-6) % Baso % (Auto) (0-2) % Absolute Neuts (auto) (1.5-7.7) 10^3/ul Absolute Lymphs (auto) (1.0-4.8) 10^3/ul Absolute Monos (auto) (0-0.8) 10^3/ul Absolute Eos (auto) (0-0.6) 10^3/ul Absolute Basos (auto) (0-0.2) 10^3/ul Absolute Nucleated RBC 10^3/ul Nucleated RBC % D-Dimer, Quantitative 570 H (Less Than 230) ng/mL Sodium (133-145) mmol/L Potassium (3.5-5.0) mmol/L Chloride (101-111) mmol/L Carbon Dioxide (22-32) mmol/L Anion Gap (2-11) mmol/L BUN (6-24) mg/dL Creatinine (0.51-0.95) mg/dL Est GFR ( Amer) (>60) Est GFR (Non-Af Amer) (>60) BUN/Creatinine Ratio (8-20) Glucose (70-100) mg/dL Lactic Acid 1.1 (0.5-2.0) mmol/L Calcium (8.6-10.3) mg/dL Total Bilirubin (0.2-1.0) mg/dL AST (13-39) U/L ALT (7-52) U/L Alkaline Phosphatase (34-104) U/L Troponin I (<0.04) ng/mL B-Natriuretic Peptide ( - 100) pg/mL Total Protein (6.4-8.9) g/dL Albumin (3.2-5.2) g/dL Globulin (2-4) g/dL Albumin/Globulin Ratio (1-3) Influenza A (Rapid) Negative (Negative) Influenza B (Rapid) Negative (Negative) Assess/Plan/Problems-Billing Assessment: Ms. Santana is a 66 yo female with a PMH of CAD, ischemic cardiomyopathy with EF 25-30%, chronic systolic HF, DM, CKD stage 4, hypothyroidism, depression, GERD, and PVD who presented to the ED on 03/01/17 with concern for shortness of breath, poor appetite, and bilateral lower extremity edema. - Patient Problems (1) Acute on chronic systolic (congestive) heart failure Comment: In acute exacerbation, appears secondary to recent illness and chronic renal failure On Lasix gtt-started last nigth, diuresisng slowly. Awaiting transfer to [place] for further management of her CHF Baseline weight is 165lbs, per the patient Denies dietary indiscretions or medication non-compliance Appreciate cardiology consult Daily weights, I/O (2) Chronic kidney disease, stage IV (severe) Comment: Creatinine increase halted today, cont to monitor. Appreciate nephrology consult Avoid nephrotoxic agents Trend BMP closely while utilizing IV diuretics (3) Cardiomyopathy Comment: History of ischemic cardiomyopathy EF 20-25% with worsening diastolic function Continue with IV furosemide gtt , home carvedilol Patient has ICD/pacemaker Pt ia being transferred to [facility], Dr. Snell ([facility] cardiology) (4) Elevated troponin Comment: Trop 0.04, denies CP Suspect demand ischemia from CHF exacerbation. (5) Hypertension Comment: SBP 90s-100s. Hydralazine and amlodipine held Continue carvedilol and IV furosemide (6) Hypothyroid Comment: Continue current dose of levothyroxine. (7) Type II diabetes mellitus Comment: BG mostly controlled Continue Lispro SSI and Lantus Hold home oral hypoglycemics Status and Disposition: Inpatient admit. Awaiting transfer to [facility]
[2017-03-05] MEDS: CMCS:Pantoprazole TAB (NF) 40 MG TAB PO SCH ×2 (11:36→21:31)
[2017-03-05] MEDS: Atorvastatin* 40 MG TAB PO SCH (17:11)
[2017-03-05] MEDS: PARoxetine HCL TAB* 10 MG PO SCH (21:31)
[2017-03-05] MEDS: Insulin GLARGINE(*) 1 UNITS UNIT SUBCUT SCH (21:32)
[2017-03-06] MEDS: Levothyroxine TAB* 100 MCG TAB PO SCH (05:06)
[2017-03-06] MEDS: Heparin VIAL(*) 5000 UNITS/ML VIAL (FIVE THOUSAND) SUBCUT SCH ×2 (05:07→13:52)
[2017-03-06] MEDS: Furosemide IV* 100 MG in NS 0.9% 100 ML* 90 ML IV SCH ×2 (05:07→12:41)
[2017-03-06 06:31] LABS: EGFR Non-African American 10.8 (>60)
[2017-03-06] MEDS: Insulin LISPRO* 1 UNITS UNIT SUBCUT SCH ×3 (07:35→17:17)
--- NOTE | 2017-03-06 10:01 | PN ---
Subjective Date of Service: 03/06/17 Interval History: Pt is doing well, wants to to home. Family History: Unchanged from Admission Social History: Unchanged from Admission Past Medical History: Unchanged from Admission Objective Active Medications: Albuterol (Ventolin Hfa Inhaler*) 2 puff INH Q4H PRN PRN Reason: SOB/WHEEZING Last Admin: 03/01/17 20:48 Dose: 2 puff Aspirin (Aspirin Ec Low Dose*) 81 mg PO DAILY [facility] Last Admin: 03/05/17 08:43 Dose: 81 mg Atorvastatin Calcium (Lipitor*) 40 mg PO 1700 [facility] Last Admin: 03/05/17 17:11 Dose: 40 mg Carvedilol (Coreg Tab*) 12.5 mg PO BID [facility] Last Admin: 03/05/17 21:30 Dose: 12.5 mg Cilostazol (Pletal Tab*) 100 mg PO BID [facility] Last Admin: 03/05/17 21:30 Dose: 100 mg Device (Nicotine Mouth Piece*) 1 each INH .USE WITH NICOTROL PRN PRN Reason: CRAVING Dextrose (D50w Syringe 50 Ml*) 12.5 gm IV PUSH .FOR FS < 60 - SS PRN PRN Reason: FS < 60 Guaifenesin (Robitussin*) 5 ml PO Q6H PRN PRN Reason: COUGH Heparin Sodium (Porcine) (Heparin Vial(*)) 5,000 units SUBCUT Q8HR [facility] Last Admin: 03/06/17 05:07 Dose: 5,000 units Furosemide 100 mg/ Sodium (Chloride) 100 mls @ 10 mls/hr IV Q10H [facility] PRN Reason: 10 MG/HR Last Admin: 03/06/17 05:07 Dose: 10 mls/hr Insulin Glargine (Lantus(*)) 20 units SUBCUT BEDTIME [facility] Last Admin: 03/05/17 21:32 Dose: 20 units Insulin Human Lispro (Humalog*) 0 - 10 units SUBCUT ACHS [facility] PRN Reason: Protocol Last Admin: 03/06/17 07:35 Dose: Not Given Isosorbide Mononitrate (Imdur Er Tab*) 30 mg PO DAILY [facility] Last Admin: 03/05/17 08:43 Dose: 30 mg Levothyroxine Sodium (Synthroid Tab*) 100 mcg PO DAILY@0600 [facility] Last Admin: 03/06/17 05:06 Dose: 100 mcg Magnesium Hydroxide (Milk Of Magnesia Liq*) 30 ml PO Q6H PRN PRN Reason: CONSTIPATION Last Admin: 03/03/17 03:43 Dose: 30 ml Metolazone (Zaroxolyn Tab*) 5 mg PO DAILY [facility] Last Admin: 03/05/17 08:42 Dose: 5 mg Nicotine (Nicotine Inhaler*) 10 mg INH Q2H PRN PRN Reason: CRAVING Ondansetron HCl (Zofran Inj*) 4 mg IV Q6H PRN PRN Reason: NAUSEA Last Admin: 03/03/17 05:56 Dose: 4 mg Pantoprazole Sodium (Protonix Tab (Nf)) 40 mg PO BID [facility] Last Admin: 03/05/17 21:31 Dose: 40 mg Paroxetine HCl (Paxil Tab*) 30 mg PO BEDTIME [facility] Last Admin: 03/05/17 21:31 Dose: 30 mg Polyethylene Glycol/Electrolytes (Miralax*) 17 gm PO DAILY PRN PRN Reason: CONSTIPATION Potassium Chloride (Klor Con Er Tab*) 20 meq PO TID [facility] Last Admin: 03/05/17 21:30 Dose: 20 meq Vital Signs - 8 hr 03/06/17 03/06/17 03:48 07:37 Temperature 98.3 F Pulse Rate 72 Respiratory 20 16 Rate Blood Pressure 102/56 (mmHg) O2 Sat by Pulse 97 Oximetry Oxygen Devices in Use Now: None Appearance: 66 yo F in nAD, aAOx3 Eyes: No Scleral Icterus, PERRLA Ears/Nose/Mouth/Throat: NL Teeth, Lips, Gums, Mucous Membranes Moist Neck: NL Appearance and Movements; NL JVP, Trachea Midline Respiratory: Symmetrical Chest Expansion and Respiratory Effort, - - crackles at b/l bases Cardiovascular: NL Sounds; No Murmurs; No JVD, RRR Abdominal: NL Sounds; No Tenderness; No Distention, No Hepatosplenomegaly Lymphatic: No Cervical Adenopathy Extremities: No Clubbing, Cyanosis, - - +1 pitting pedal edema b/l Skin: No Nodules or Sclerosis Neurological: Alert and Oriented x 3, NL Muscle Strength and Tone Result Diagrams: 03/04/17 08:18 03/06/17 06:01 Additional Lab and Data: Lab Results 03/01/17 03/01/17 03/01/17 Range/Units 10:45 10:45 10:45 WBC 6.5 (3.5-10.8) 10^3/ul RBC 3.11 L (4.0-5.4) 10^6/ul Hgb 9.4 L (12.0-16.0) g/dl Hct 27 L (35-47) % MCV 88 (80-97) fL MCH 30 (27-31) pg MCHC 34 (31-36) g/dl RDW 15 (10.5-15) % Plt Count 244 (150-450) 10^3/ul MPV 8 (7.4-10.4) um3 Neut % (Auto) 87.2 H (38-83) % Lymph % (Auto) 4.8 L (25-47) % Petroleum % (Auto) 4.9 (1-9) % Eos % (Auto) 2.3 (0-6) % Baso % (Auto) 0.8 (0-2) % Absolute Neuts (auto) 5.7 (1.5-7.7) 10^3/ul Absolute Lymphs (auto) 0.3 L (1.0-4.8) 10^3/ul Absolute Monos (auto) 0.3 (0-0.8) 10^3/ul Absolute Eos (auto) 0.2 (0-0.6) 10^3/ul Absolute Basos (auto) 0.1 (0-0.2) 10^3/ul Absolute Nucleated RBC 0 10^3/ul Nucleated RBC % 0 D-Dimer, Quantitative (Less Than 230) ng/mL Sodium 130 L (133-145) mmol/L Potassium 3.3 L (3.5-5.0) mmol/L Chloride 90 L (101-111) mmol/L Carbon Dioxide 28 (22-32) mmol/L Anion Gap 12 H (2-11) mmol/L BUN 119 H (6-24) mg/dL Creatinine 4.48 H (0.51-0.95) mg/dL Est GFR ( Amer) 12.7 (>60) Est GFR (Non-Af Amer) 9.9 (>60) BUN/Creatinine Ratio 26.6 H (8-20) Glucose 336 H (70-100) mg/dL Lactic Acid (0.5-2.0) mmol/L Calcium 8.2 L (8.6-10.3) mg/dL Total Bilirubin 0.90 (0.2-1.0) mg/dL AST 27 (13-39) U/L ALT 38 (7-52) U/L Alkaline Phosphatase 303 H (34-104) U/L Troponin I 0.04 H* (<0.04) ng/mL B-Natriuretic Peptide 4201 H ( - 100) pg/mL Total Protein 6.1 L (6.4-8.9) g/dL Albumin 3.2 (3.2-5.2) g/dL Globulin 2.9 (2-4) g/dL Albumin/Globulin Ratio 1.1 (1-3) Influenza A (Rapid) (Negative) Influenza B (Rapid) (Negative) 03/01/17 03/01/17 03/01/17 Range/Units 10:45 10:45 12:02 WBC (3.5-10.8) 10^3/ul RBC (4.0-5.4) 10^6/ul Hgb (12.0-16.0) g/dl Hct (35-47) % MCV (80-97) fL MCH (27-31) pg MCHC (31-36) g/dl RDW (10.5-15) % Plt Count (150-450) 10^3/ul MPV (7.4-10.4) um3 Neut % (Auto) (38-83) % Lymph % (Auto) (25-47) % Petroleum % (Auto) (1-9) % Eos % (Auto) (0-6) % Baso % (Auto) (0-2) % Absolute Neuts (auto) (1.5-7.7) 10^3/ul Absolute Lymphs (auto) (1.0-4.8) 10^3/ul Absolute Monos (auto) (0-0.8) 10^3/ul Absolute Eos (auto) (0-0.6) 10^3/ul Absolute Basos (auto) (0-0.2) 10^3/ul Absolute Nucleated RBC 10^3/ul Nucleated RBC % D-Dimer, Quantitative 570 H (Less Than 230) ng/mL Sodium (133-145) mmol/L Potassium (3.5-5.0) mmol/L Chloride (101-111) mmol/L Carbon Dioxide (22-32) mmol/L Anion Gap (2-11) mmol/L BUN (6-24) mg/dL Creatinine (0.51-0.95) mg/dL Est GFR ( Amer) (>60) Est GFR (Non-Af Amer) (>60) BUN/Creatinine Ratio (8-20) Glucose (70-100) mg/dL Lactic Acid 1.1 (0.5-2.0) mmol/L Calcium (8.6-10.3) mg/dL Total Bilirubin (0.2-1.0) mg/dL AST (13-39) U/L ALT (7-52) U/L Alkaline Phosphatase (34-104) U/L Troponin I (<0.04) ng/mL B-Natriuretic Peptide ( - 100) pg/mL Total Protein (6.4-8.9) g/dL Albumin (3.2-5.2) g/dL Globulin (2-4) g/dL Albumin/Globulin Ratio (1-3) Influenza A (Rapid) Negative (Negative) Influenza B (Rapid) Negative (Negative) Assess/Plan/Problems-Billing Assessment: Ms. Santana is a 66 yo female with a PMH of CAD, ischemic cardiomyopathy with EF 25-30%, chronic systolic HF, DM, CKD stage 4, hypothyroidism, depression, GERD, and PVD who presented to the ED on 03/01/17 with concern for shortness of breath, poor appetite, and bilateral lower extremity edema. - Patient Problems (1) Acute on chronic systolic (congestive) heart failure Comment: In acute exacerbation, appears secondary to recent illness and chronic renal failure On Lasix gtt-started last night, diuresisng slowly. Awaiting transfer to [facility] for further management of her CHF. Wanted to go home today, spoke with pt's housekeeping manager from [facility] who recommended continuation of tx with Lasix gtt for at least another 2 days. For now will cont to await possible transfer to [facility]. Baseline weight is 165lbs, per the patient. Denies dietary indiscretions or medication non-compliance Appreciate cardiology consult Daily weights, I/O (2) Chronic kidney disease, stage IV (severe) Comment: Creatinine increase halted today, cont to monitor. Appreciate nephrology consult Avoid nephrotoxic agents Trend BMP closely while utilizing IV diuretics (3) Cardiomyopathy Comment: History of ischemic cardiomyopathy EF 20-25% with worsening diastolic function Continue with IV furosemide gtt , home carvedilol Patient has ICD/pacemaker Pt awaiting transfer to [facility], Dr. Snell ([facility] cardiology) (4) Elevated troponin Comment: Trop 0.04, denies CP Suspect demand ischemia from CHF exacerbation. (5) Hypertension Comment: SBP 90s-100s. Hydralazine and amlodipine held Continue carvedilol and IV furosemide (6) Hypothyroid Comment: Continue current dose of levothyroxine. (7) Type II diabetes mellitus Comment: BG mostly controlled Continue Lispro SSI and Lantus Hold home oral hypoglycemics Status and Disposition: Inpatient admit. Awaiting transfer to [facility]
[2017-03-06] MEDS: Carvedilol TAB* 25 MG PO SCH (10:09)
[2017-03-06] MEDS: Metolazone TAB* 5 MG PO SCH (10:09)
[2017-03-06] MEDS: Aspirin EC Low Dose* 81 MG TAB.EC PO SCH (10:10)
[2017-03-06] MEDS: Potassium Chlor TAB* 20 MEQ TAB.ER PO SCH ×2 (10:10→13:52)
[2017-03-06] MEDS: Cilostazol TAB* 100 MG PO SCH (10:10)
[2017-03-06] MEDS: Isosorbide Mononitrate ER TAB* 30 MG PO SCH (10:11)
[2017-03-06] MEDS: CMCS:Pantoprazole TAB (NF) 40 MG TAB PO SCH (10:11)
[2017-03-06 15:55] VITALS: BP 100/49
[2017-03-06] MEDS: Atorvastatin* 40 MG TAB PO SCH (17:07)
== END 2017-03-06 17:40 | disposition short-term general hospital (02) | DRG 194 ==
LOC: ED 09:58 → MEDTELE 13:15 → OBSVTOIN 03-02 14:00
PROVIDERS: ADMIT Internal Medicine; ATTEND Internal Medicine
DX: I50.23 Acute on chronic systolic (congestive) heart failure (principal); N18.4 Chronic kidney disease, stage 4 (severe); E11.22 Type 2 diabetes mellitus with diabetic chronic kidney disease; C85.93 Non-Hodgkin lymphoma, unspecified, intra-abdominal lymph nodes; C43.9 Malignant melanoma of skin, unspecified; I08.1 Rheumatic disorders of both mitral and tricuspid valves; E83.42 Hypomagnesemia; I25.5 Ischemic cardiomyopathy; I25.10 Atherosclerotic heart disease of native coronary artery without angina pectoris; I50.32 Chronic diastolic (congestive) heart failure; E78.5 Hyperlipidemia, unspecified; E11.51 Type 2 diabetes mellitus with diabetic peripheral angiopathy without gangrene; K21.9 Gastro-esophageal reflux disease without esophagitis; F32.9 Major depressive disorder, single episode, unspecified; E03.9 Hypothyroidism, unspecified; I27.20 Pulmonary hypertension, unspecified; F17.210 Nicotine dependence, cigarettes, uncomplicated; R74.8 Abnormal levels of other serum enzymes; E87.6 Hypokalemia; I25.2 Old myocardial infarction; Z79.01 Long term (current) use of anticoagulants; Z79.84 Long term (current) use of oral hypoglycemic drugs; Z79.82 Long term (current) use of aspirin; Z79.4 Long term (current) use of insulin; Z79.899 Other long term (current) drug therapy; Z88.0 Allergy status to penicillin; Z88.2 Allergy status to sulfonamides; Z82.49 Family history of ischemic heart disease and other diseases of the circulatory system; Z83.3 Family history of diabetes mellitus
CPT/HCPCS: 36415; 71046; 80048; 80053; 82947; 83605; 83735; 83880; 84132; 84484; 85025; 85379; 86480; 86703; 86706; 86803; 87340; 87502; 90686; 90732; 93005; 93306; 93970; 96372; 96374; 99406; A9270-GY; G0378; J1644; J1940; J2405; J3475

== ENCOUNTER 2017-05-01 10:46 | Emergency (ER) | payer OTHER, MEDICARE ==
[2017-05-01 11:24] LABS: ABS Basophils 0 10^3/ul (0-0.2); ABS Eosinophils 0 10^3/ul (0-0.6); ABS Lymphocytes 0.4 10^3/ul (1.0-4.8); ABS Monocytes 0.7 10^3/ul (0-0.8); ABS Neutrophils 6.3 10^3/ul (1.5-7.7); ABS Nucleated RBC 0 10^3/ul; Eosinophil % 0 % (0-6); Hematocrit 33 % (35-47); Hemoglobin 9.9 g/dl (12.0-16.0); Lymphocyte % 5.4 % (25-47); Mean Corpuscular HGB Conc 30 g/dl (31-36); Mean Corpuscular Hemoglobin 28 pg (27-31); Mean Corpuscular Volume 92 fL (80-97); Mean Platelet Volume 9 um3 (7.4-10.4); Nucleated Red Blood Cells % 0.4; Platelet Count 363 10^3/ul (150-450); Red Blood Count 3.57 10^6/ul (4.0-5.4); Red Cell Distribution Width 21 % (10.5-15); White Blood Count 7.5 10^3/ul (3.5-10.8)
[2017-05-01 11:36] LABS: EGFR Non-African American 10.1 (>60)
[2017-05-01 11:52] LABS: INR 1.52 (0.77-1.02)
[2017-05-01] MEDS ORDERED: Ondansetron INJ* 2 MG/ML VIAL IV ONE (12:22)
[2017-05-01] MEDS ORDERED: NS 0.9% 250 ML* 250 ML IV ONE ×2 (12:36→13:32)
--- NOTE | 2017-05-01 12:38 | RAD ---
INDICATION: CHF. Renal failure. COMPARISON: March 01, 2017 TECHNIQUE: An AP portable view obtained at posterior 5 hours is submitted. FINDINGS: Bones/Soft Tissues: There are no acute bony findings. There is a double lumen right-sided central venous catheter in appropriate position. There is left-sided cardiac pacemaker Cardiomediastinal: The cardiac silhouette is enlarged. Central pulmonary vessels are mildly prominent. Interstitial congestive findings have largely resolved. Lungs: There are no infiltrates. Pleura: Small bilateral pleural effusions. Other: None IMPRESSION: ENLARGED CARDIAC SILHOUETTE WITH SMALL BILATERAL PLEURAL EFFUSIONS. INTERSTITIAL CONGESTIVE CHANGES HAVE LARGELY RESOLVED.
[2017-05-01] MEDS ORDERED: DOBUTamine 2000 MCG/ML IVPREMX 500 MG/250 ML BAG IV ONE (13:48)
[2017-05-01] MEDS ORDERED: DoBUTamine INJ* 500 MG in D5W 100 ML BAG* 60 ML IV SCH (14:00)
[2017-05-01] MEDS ORDERED: Norepinephrine 8 mg in 500 mL NS (Pharmacy Admixed Drip) IV SCH (14:00)
[2017-05-01] MEDS ORDERED: Norepinephrine 16MCG/ML IVPRE* 4,000 MCG/250 ML BAG IV SCH (14:00)
[2017-05-01] MEDS ORDERED: DOBUTamine 2000 MCG/ML IVPREMX 500 MG/250 ML BAG IV SCH ×2 (14:00)
[2017-05-01] MEDS ORDERED: NS 0.9% 1000 ML* 1,000 ML IV SCH (14:15)
[2017-05-01 14:26] VITALS: BP 82/52
--- NOTE | 2017-05-01 14:34 | ED ---
Suleiman Bernard Stephanie, scribed for Marcellus Franklin MD on 05/01/17 at 1143 . GI/ HPI - HPI Summary HPI Summary: The pt is a 67 y/o F presenting to the ED with c/o N/V since yesterday. Symptoms include sleep disturbances, inability to lay down supine, decreased oral intake, LE edema, SOB, decreased energy and neck pressure. The pt denies fever and chills. The pt states she came into the ED today because she cannot walk very far and her neck pressure has severely increased over the last few days. The pt began dialysis 2 weeks ago and has had 3 sessions at [facility] and had her first session of dialysis with Dr. Ro on 04/26/17. The pt reports that yesterday 6 units of fluid were removed during dialysis and she felt nausea and decreased energy. She reports that vomiting did not relieve nausea symptoms. The pt reports that her kidney problems began years ago and may have resulted from complications from CHF and diabetes. - History of Current Complaint Chief Complaint: EDGeneral Time Seen by Provider: 05/01/17 11:00 Stated Complaint: VOMITING Hx Obtained From: Patient Onset/Duration: Started Weeks Ago, Still Present Timing: Constant Current Severity: Severe Pain Intensity: 0 Associated Signs and Symptoms: Positive: Weakness, Nausea, Vomiting, Change in Appetite - decreased. Negative: Chills Aggravating Factor(s): Nothing Alleviating Factor(s): Nothing - Additional Pertinent History Primary Care Physician: [id number] - Allergy/Home Medications Allergies/Adverse Reactions: Allergies Allergy/AdvReac Type Severity Reaction Status Date / Time penicillin V Allergy Rash Verified 05/01/17 11:19 Sulfa (Sulfonamide Allergy Unknown Verified 05/01/17 11:19 Antibiotics) Reaction Details Home Medications: Home Medications Aspirin Low Dose CHEW TAB* [Aspirin Low Dose TAB*] 81 mg PO DAILY 05/01/17 [ History Confirmed 05/01/17] Calcium Acetate CAP* [Phoslo CAP*] 667 mg PO TID WITH MEALS 05/01/17 [History Confirmed 05/01/17] Carvedilol TAB* [Coreg TAB*] 12.5 mg PO BID 05/01/17 [History Confirmed 05/01/17 ] Clopidogrel TAB* [Plavix TAB*] 75 mg PO DAILY 05/01/17 [History Confirmed ] Metoprolol Succinate XL TAB* [Toprol XL TAB*] 25 mg PO DAILY 05/01/17 [History Confirmed 05/01/17] Nitroglycerin TAB 0.4 MG* 0.4 mg SL Q5M PRN 05/01/17 [History Confirmed 05/01/17 ] Sevelamer TAB* [Renvela TAB*] 800 mg PO TID WITH MEALS 05/01/17 [History Confirmed 05/01/17] Sitagliptin (NF) [Januvia (NF)] 50 mg PO DAILY 05/01/17 [History Confirmed 05/01] PMH/Surg Hx/FS Hx/Imm Hx Endocrine/Hematology History: Reports: Hx Diabetes, Hx Thyroid Disease Cardiovascular History: Reports: Hx Angina, Hx Auto Implanted Cardiovert Defib, Hx Congestive Heart Failure, Hx Coronary Artery Disease, Hx Hypertension, Hx Pacemaker/ICD - 09/2016, Other Cardiovascular Problems/Disorders - Cardiac cath 2011 with 2 stents Denies: Hx Peripheral Vascular Disease Respiratory History: Reports: Hx Pleural Effusion, Hx Pulmonary Embolism Denies: Hx Chronic Obstructive Pulmonary Disease (COPD), Other Respiratory Problems/Disorders GI History: Reports: Hx Gastrointestinal Bleed Denies: Other GI Disorders - "stomach" CA, meghann, "oozing bleed" History: Reports: Hx Chronic Renal Failure, 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 lymphoma. melanoma- 2000 lymph nodes removed from right groin. -2003 spot removed from top of right foot. Hx Chemotherapy: Yes - Surgical History Surgery Procedure, Year, and Place: ,cholecystectomy, hysterectomy, melanoma- 2000 lymph nodes removed right groin, 2003 spot removed from top of right foot. Hx Anesthesia Reactions: No - Immunization History Date of Tetanus Vaccine: Unk Date of Influenza Vaccine: Fall 2013 Infectious Disease History: No Infectious Disease History: Reports: Hx Shingles Denies: Traveled Outside the [place] in Last 30 Days - Family History Known Family History: Positive: Cardiac Disease - Positive to mother - Social History Occupation: Employed Full-time Lives: Alone Alcohol Use: None Substance Use Type: Reports: None Hx Tobacco Use: Yes Smoking Status (MU): Heavy Every Day Tobacco Smoker Type: Cigarettes Length of Time of Smoking/Using Tobacco: About 40yrs Have You Smoked in the Last Year: Yes Review of Systems Positive: Other - decreased energy, sleep disturbances, inability to lay down supine, decreased oral intake. Negative: Fever, Chills Positive: Shortness Of Breath Positive: Vomiting, Nausea Positive: Edema - LE bilaterally, Other - Neck pressure All Other Systems Reviewed And Are Negative: Yes Physical Exam - Summary Physical Exam Summary: General: Moderately ill-appearing, no pain distress Skin: warm, color reflects adequate perfusion, dry Head: normal Eyes: EOMI, CHAMP ENT: normal Neck: supple, nontender Respiratory: CTA, breath sounds present Cardiovascular: RRR Abdomen: soft, nontender Bowel: present Musculoskeletal: normal, strength/ROM intact, bilateral pedal edema Neurological: normal, sensory/motor intact, A&O x3 Psychological: affect/mood appropriate Triage Information Reviewed: Yes Vital Signs On Initial Exam: Initial Vitals Temp Pulse Resp BP Pulse Ox 96.9 F 102 18 70/50 100 05/01/17 10:47 05/01/17 10:47 05/01/17 10:47 05/01/17 10:47 05/01/17 10:47 Vital Signs Reviewed: Yes Diagnostics - Vital Signs Vital Signs Temp Pulse Resp BP Pulse Ox 05/01/17 11:30 17 70/52 05/01/17 11:23 20 78/55 05/01/17 11:19 17 05/01/17 11:00 80/58 05/01/17 10:47 96.9 F 102 18 70/50 100 - Laboratory Lab Results: Lab Results 05/01/17 05/01/17 Range/Units 11:10 11:10 WBC 7.5 (3.5-10.8) 10^3/ul RBC 3.57 L (4.0-5.4) 10^6/ul Hgb 9.9 L (12.0-16.0) g/dl Hct 33 L (35-47) % MCV 92 (80-97) fL MCH 28 (27-31) pg MCHC 30 L (31-36) g/dl RDW 21 H (10.5-15) % Plt Count 363 (150-450) 10^3/ul MPV 9 (7.4-10.4) um3 Neut % (Auto) 84.6 H (38-83) % Lymph % (Auto) 5.4 L (25-47) % [place] % (Auto) 9.4 H (0-7) % Eos % (Auto) 0 (0-6) % Baso % (Auto) 0.6 (0-2) % Absolute Neuts (auto) 6.3 (1.5-7.7) 10^3/ul Absolute Lymphs (auto) 0.4 L (1.0-4.8) 10^3/ul Absolute Monos (auto) 0.7 (0-0.8) 10^3/ul Absolute Eos (auto) 0 (0-0.6) 10^3/ul Absolute Basos (auto) 0 (0-0.2) 10^3/ul Absolute Nucleated RBC 0 10^3/ul Nucleated RBC % 0.4 Sodium 134 (133-145) mmol/L Potassium 4.2 (3.5-5.0) mmol/L Chloride 86 L (101-111) mmol/L Carbon Dioxide 16 L (22-32) mmol/L Anion Gap 32 H (2-11) mmol/L BUN 36 H (6-24) mg/dL Creatinine 4.39 H (0.51-0.95) mg/dL Est GFR ( Amer) 12.9 (>60) Est GFR (Non-Af Amer) 10.1 (>60) BUN/Creatinine Ratio 8.2 (8-20) Glucose 157 H (70-100) mg/dL Calcium 10.2 (8.6-10.3) mg/dL Magnesium 2.0 (1.9-2.7) mg/dL Total Bilirubin 2.20 H (0.2-1.0) mg/dL AST 91 H (13-39) U/L ALT 56 H (7-52) U/L Alkaline Phosphatase 91 (34-104) U/L Troponin I Pending Total Protein 6.4 (6.4-8.9) g/dL Albumin 3.5 (3.2-5.2) g/dL Globulin 2.9 (2-4) g/dL Albumin/Globulin Ratio 1.2 (1-3) TSH Pending Result Diagrams: 05/01/17 11:10 05/01/17 11:10 Lab Statement: Any lab studies that have been ordered have been reviewed, and results considered in the medical decision making process. - Radiology CXR Xray Interpretation: Positive (See Comments) Radiology Interpretation Completed By: Radiologist - ENLARGED CARDIAC SILHOUETTE WITH SMALL BILATERAL PLEURAL EFFUSIONS. INTERSTITIAL CONGESTIVE CHANGES HAVE LARGELY RESOLVED. - EKG 11:04 Cardiac Rate: Tachycardia EKG Rhythm: Sinus Tachycardia - [address] Segment: Non-Specific - abnormal T waves in lateral leads Ectopy: PACs GIGU Course/Dx - Course Course Of Treatment: DR CANDELARIA AND DR TRUJILLO BOTH SAW THE PATIENT IN THE EMERGENCY DEPARTMENT. IF THE PATIENT REQUIRED CARDIAC INTERVENTION, THERE IS NO SURGICAL BACKUP OR CARDIOLOGY CRITICAL CARE HERE AT [facility] AND THEREFORE IT IS RECOMMENDED TO TRANSFER TO [facility] WHERE THE PATIENT'S DIRECTOR CASE, DR PEARL, PRACTICES. DR CANDELARIA SPOKE WITH HIM ON THE PHONE AND HE ACCEPTS THE PATIENT IN TRANSFER. PATIENT MENTATING IN THE ED DESPITE THE LOW BP. INITIALLY IV NS BOLUSES GIVEN. THEN, STARTED ON DOBUTAMINE DRIP TO BRING BP UP. HELICOPTER TO [facility] ED, CONDITION GUARDED. - Diagnoses Provider Diagnoses: Lactic acidosis, Hypotension, Renal failure, CHF (congestive heart failure), Elevated troponin - Critical Care Time Critical Care Time: 75-104 min Discharge - Discharge Plan Condition: Guarded Disposition: TRANS HIGHER LVL OF CARE FAC Referrals: José Miguel HERNANDEZ,Logan Lagunas [Primary Care Provider] - The documentation as recorded by the Suleiman friedman Stephanie accurately reflects the service I personally performed and the decisions made by me, Marcellus Franklin MD.
== END 2017-05-01 14:05 | disposition short-term general hospital (02) ==
LOC: ED 10:46
DX: E87.2 Acidosis (principal); I95.9 Hypotension, unspecified; E11.22 Type 2 diabetes mellitus with diabetic chronic kidney disease; N18.6 End stage renal disease; Z99.2 Dependence on renal dialysis; I50.9 Heart failure, unspecified; J90 Pleural effusion, not elsewhere classified; F17.210 Nicotine dependence, cigarettes, uncomplicated; Z88.3 Allergy status to other anti-infective agents; Z88.2 Allergy status to sulfonamides
CPT/HCPCS: 36415; 36600; 71045; 80053; 82150; 82550; 82553; 82803; 83605; 83690; 83735; 83880; 84100; 84443; 84484; 85025; 85610; 87040; 93005; 96374; 96375; 96376; 99285; J1250; J2405